=== PATIENT | female | born 1950 | race Caucasian/White ===

== ENCOUNTER 2021-04-13 11:43 | Outpatient (CLI) | payer MEDICARE, OTHER, SELFPAY ==
--- NOTE | ~2021-04-13 | MM_ITS ---
EXAMINATION: MM screening [facility] BI w ryan HISTORY: Screening TECHNIQUE: Craniocaudal and mediolateral oblique 3-D tomosynthesis images were obtained and synthetic 2-D images were generated. CAD analysis was submitted and interpreted. COMPARISON: Comparison to multiple prior studies sequentially, with oldest reviewed study dated 07/2018. BREAST PARENCHYMAL COMPOSITION: There are scattered areas of fibroglandular density. FINDINGS: There is no evidence of suspicious mass, calcification, or architectural distortion to sugg est malignancy in either breast. There has been no suspicious interval change. IMPRESSION: 1. No mammographic evidence of malignancy. 2. Recommend routine screening mammography in one year. BI-RADS Category 1: Negative Reviewed, dictated and finalized at location A.
== END 2021-04-13 11:44 | disposition home or self-care (01) ==
DX: Z12.31 Encounter for screening mammogram for malignant neoplasm of breast (principal)
CPT/HCPCS: 77063; 77067

== ENCOUNTER 2021-07-26 08:51 | Emergency (ER) | payer MEDICARE, OTHER, SELFPAY ==
--- NOTE | ~2021-07-26 | CT_ITS ---
EXAMINATION: CT hand RT w con DATE: 07/26/2021 11:18 INDICATION: Cat bite and swelling at the right hand TECHNIQUE: High resolution computed tomography (CT) of the right hand was performed with 100 mL Omnip aque-350 intravenous contrast. Additional sagittal and coronal reconstructions were performed. Automa josé exposure control and iterative reconstruction technique were employed. The dose-length product wa s 520.24 mGy-cm. COMPARISON: None FINDINGS: Bone alignment is normal. No fracture. Polyarticular osteoarthritis characterized by nonuniform joint space narrowing and small marginal osteophytes and scattered degenerative subchondral cysts with scl erotic margins. This of moderate severity at the midcarpal, triscaphe, first carpal metacarpal joints and a few predominantly distal interphalangeal joints with mild osteoarthritis of the distal radioul geovanna, wrist and first metacarpophalangeal and remaining interphalangeal joints. No periosteal reaction or acute appearing erosions/osteolysis to suggest osteomyelitis. There is enhancing synovitis surrou nding a small amount of fluid surrounding the extensor digitorum longus and extensor pollicis brevis longus tendons beginning approximately 1 cm proximal to the wrist joint line and extending distally t o proximally 4.7 cm distally over the dorsum of the hand. Tenosynovial fluid collection inclusive of the central tendons measures 2.0 x 0.9 cm in maximal orthogonal dimensions at the level of the distal carpal row. In the history of cat bite this most concerning for a septic tenosynovitis. No evident j oint effusions to suggest a septic arthritis. There is prominent more superficial subcutaneous edema consistent with cellulitis. No soft tissue gas or radiopaque foreign bodies. IMPRESSION: 1. Cellulitis at the dorsum of the hand with underlying likely septic tenosynovitis involving the thi rd and fourth dorsal compartments of the wrist. 2. Mild to moderate polyarticular osteoarthritis at the right hand and wrist. No evident osteomyeliti s or other acute osseous abnormality. Reviewed, dictated and finalized at location B. IMPRESSION: 1. Cellulitis at the dorsum of the hand with underlying likely septic tenosynov itis involving the third and fourth dorsal compartments of the wrist. 2. Mild to moderate polyarticular osteoarthritis at the right hand and wrist. N o evident osteomyelitis or other acute osseous abnormality.
[2021-07-26 08:55] VITALS: BP 138/95; PULSE 80; RESP 16; TEMP 36.9; O2SAT 96
--- NOTE | 2021-07-26 09:07 | ED.GENADULT ---
HPI - General Adult General Chief complaint: Animal Bite Stated complaint: cat bite Time Seen by Provider: 07/26/21 09:04 Source: patient Mode of arrival: ambulatory Limitations: no limitations History of Present Illness HPI narrative: Patient was bitten and scratched by a neighborhood cat on Sunday. She states that she did make an animal control report Sunday at another facility. She was seen Sunday morning in another emergency room and given Augmentin. She is taken a total of 4 doses so far. Her hand though is swelling worse, she has difficulty moving her fingers, and the pain is traveled to her forearm just below her elbow. She denies any fever, occasional chills. She is not diabetic. Related Data Home Medications Medication Instructions Recorded Confirmed amlodipine 07/26/21 amoxicillin-pot clavulanate tablet 07/26/21 07/26/21 aripiprazole mg 07/26/21 atenolol 07/26/21 lisinopril 07/26/21 omeprazole 07/26/21 pravastatin 07/26/21 quetiapine 07/26/21 venlafaxine mg PO 07/26/21 Allergies Allergy/AdvReac Type Severity Reaction Status Date / Time cephalexin Allergy Rash Verified 07/26/21 10:25 erythromycin base Allergy Rash Verified 07/26/21 10:25 CIPROFLOXACIN HCL Allergy Mild Rash Uncoded 07/26/21 10:25 Review of Systems Review of Systems: All systems reviewed & are unremarkable except as noted in HPI and below [facility] Social History Social History (Updated 07/26/21 @ 13:27 by Sirisha Navarrete PA-C) Smoking status: Never smoker Alcohol intake: current Alcohol use details: occasional Substance use: never Living arrangements: alone Occupation/Education: retired Course Course Emergency Course: CT is concerning for septic tenosynovitis in the right hand and wrist. Discussed with Dr. Mendoza who recommends that the wound be explored and that patient be transferred to a higher level of care. Patient desires to go to one of the [facility] hospitals as that is where her other physicians are. Spoke with Dr. Alicea, plastic surgery on hand call at [facility] he recommends transfer to the ED there and he will see the patient. Patient has been accepted to the ED by Dr. Tolbert. Plan discussed with the patient Vital Signs Vital signs: Vital Signs Temperature 36.9 C 07/26/21 08:55 Pulse Rate 80 07/26/21 08:55 Respiratory Rate 16 07/26/21 08:55 Blood Pressure 138/95 H 07/26/21 08:55 Pulse Oximetry 96 07/26/21 08:55 Temperature 36.9 C 07/26/21 08:55 Pulse Rate 70 07/26/21 12:59 Respiratory Rate 16 07/26/21 12:59 Blood Pressure 164/90 H 07/26/21 12:59 Pulse Oximetry 98 07/26/21 12:59 Medical Decision Making Vital Signs Vital Signs: Vital Signs Temperature 36.9 C 07/26/21 08:55 Pulse Rate 80 07/26/21 08:55 Respiratory Rate 16 07/26/21 08:55 Blood Pressure 138/95 H 07/26/21 08:55 Pulse Oximetry 96 07/26/21 08:55 Temperature 36.9 C 07/26/21 08:55 Pulse Rate 70 07/26/21 12:59 Respiratory Rate 16 07/26/21 12:59 Blood Pressure 164/90 H 07/26/21 12:59 Pulse Oximetry 98 07/26/21 12:59 Lab Data Result diagrams: 07/26/21 09:26 07/26/21 11:08 Labs: Lab Results 07/26/21 07/26/21 Range/Units 09:26 11:08 WBC 7.3 (4.5-10.0) K/mm3 RBC 4.06 L (4.2-5.4) M/mm3 Hgb 12.8 (12.0-15.0) g/dL Hct 39.1 (37.0-47.0) % MCV 96.3 (80-100) fl MCH 31.5 (26-34) pg MCHC 32.7 (32-36) g/dl RDW 11.9 (11.5-14.5) % Plt Count 174 (150-375) k/mm3 MPV 10.7 H (7.4-10.4) fl Immature Gran % (Auto) 0.4 (0-0.5) % Neut % (Auto) 82.0 H (45.5-73.1) % Lymph % (Auto) 9.5 L (18.3-44.2) % [place] % (Auto) 6.5 (2.6-8.5) % Eos % (Auto) 1.2 (0-4.4) % Baso % (Auto) 0.4 (0.2-1.2) % Lymph # (Auto) 0.69 L (0.9-3.2) K/mm3 [place] # (Auto) 0.5 (0.1-0.6) K/mm3 Eos # (Auto) 0.1 (0-0.3) K/mm3 Baso # (Auto) 0.0 (0.0-0.1) K/mm3 Abs Immat Gran (auto) 0.03 (0.
[2021-07-26 09:40] LABS: Basophils Percent Auto 0.4 % (0.2-1.2); Eosinophils Absolute Auto 0.1 K/mm3 (0-0.3); Eosinophils Percent Auto 1.2 % (0-4.4); Hematocrit 39.1 % (37.0-47.0); Hemoglobin 12.8 g/dL (12.0-15.0); Immature Granulocyte Absolute 0.03 K/mm3 (0.00-0.031); Immature Granulocyte Percent A 0.4 % (0-0.5); Lymphocytes Absolute Auto 0.69 K/mm3 (0.9-3.2); Lymphocytes Percent Auto 9.5 % (18.3-44.2); Mean Corpuscular HGB Conc 32.7 g/dl (32-36); Mean Corpuscular Hemoglobin 31.5 pg (26-34); Mean Corpuscular Volume 96.3 fl (80-100); Mean Platelet Volume 10.7 fl (7.4-10.4); Monocytes Absolute Auto 0.5 K/mm3 (0.1-0.6); Monocytes Percent Auto 6.5 % (2.6-8.5); Neutrophils Absolute Auto 5.9 K/mm3 (1.3-6.7); Platelet Count Result 174 k/mm3 (150-375); Red Blood Count 4.06 M/mm3 (4.2-5.4); Red Cell Distribution Width 11.9 % (11.5-14.5); White Blood Count 7.3 K/mm3 (4.5-10.0)
[2021-07-26] MEDS: KETOROLAC 30 MG/ML VIAL (*BKC) IV PUSH (10:29)
[2021-07-26 11:00] VITALS: BP 160/88; PULSE 72; RESP 16; O2SAT 99
[2021-07-26 11:10] LABS: Estimated CRCL calculation 84 ml/min; Estimated Glomerular Filt Rate > 60
[2021-07-26 12:59] VITALS: BP 164/90; PULSE 70; RESP 16; O2SAT 98
[2021-07-26 14:15] VITALS: BP 140/80; PULSE 70; RESP 16; O2SAT 98
--- NOTE | 2021-07-26 14:25 | PC.NURSE ---
sherif ems accepted transfer to [facility] [address] Trip#[id number]
[2021-07-26 17:15] VITALS: BP 152/64; PULSE 80; RESP 16; O2SAT 98
== END 2021-07-26 17:15 | disposition short-term general hospital (02) ==
PROVIDERS: Physician Assistant; Emergency Provider Emergency Medicine
DX: S61.451A Open bite of right hand, initial encounter (principal); L02.511 Cutaneous abscess of right hand; M65.9 Synovitis and tenosynovitis, unspecified; W55.01XA Bitten by cat, initial encounter
CPT/HCPCS: 36415; 73201; 85025; 87040; 96365; 96375; 99285; J1885; J3370; Q9967

== ENCOUNTER 2023-03-05 08:39 | Inpatient (IN) | payer MEDICARE, OTHER, SELFPAY ==
[2023-03-05] VITALS (28 sets, daily range): BP systolic 120–160; BP diastolic 69–86; PULSE 59–70; RESP 12–26; TEMP 35.9; O2SAT 92–95; BMI 34.0
--- NOTE | ~2023-03-05 | MR_ITS ---
MRI of the lumbar spine Clinical History: L2 burst fracture Technique: Axial T2-weighted images, and sagittal T1-weighted, T2-weighted, and T2 fat-sat images wer e acquired. Findings: L2 compression fractures present with moderate loss of height, hypointense fracture line, a nd mild to moderate marrow edema. No other fracture identified. No subluxation evident. No other bone marrow signal abnormality seen. At L1-L2, there is mild facet arthropathy. No disc bulge or herniation. No spinal canal stenosis or n eural foraminal narrowing. At L2-L3, there is no significant disc bulge or herniation. There is mild facet arthropathy. No spina l canal stenosis or neural foraminal narrowing. At L3-L4, there is minimal disc bulge with mild facet arthropathy. No spinal canal stenosis or neural foraminal narrowing. At L4-L5, there is disc bulge and facet arthropathy. No humble spinal canal stenosis. No neural forami nal narrowing. At L5-S1, there is disc bulge and facet arthropathy. No spinal canal stenosis or definite neural fora annie narrowing. Paravertebral soft tissues are unremarkable. Impression: Acute to subacute L2 compression fracture with moderate loss of height. Minimal degenerative spondylosis, as above. Reviewed, dictated and finalized at location . Impression: Acute to subacute L2 compression fracture with moderate loss of height. Minimal degenerative spondylosis, as above.
--- NOTE | ~2023-03-05 | CT_ITS ---
EXAMINATION: CT abdomen pelvis w con DATE: 03/05/2023 10:34 INDICATION: Severe diarrhea, dehydration and low back pain TECHNIQUE: Computed tomography (CT) of the abdomen and pelvis was performed with 100 cc Omnipaque 350 intravenous contrast. The dose-length product was 1374.73 mGy-cm. Automated exposure control and ite rative reconstruction technique were employed. COMPARISON: CT dated 12/01/2017. FINDINGS: There is right lower lobe atelectasis. Heart size normal. No significant pleural or pericar dial effusion. Mild atherosclerosis without aneurysm. No lymphadenopathy. There is a 3.4 cm right adnexal cyst, like ly ovarian. There is a burst fracture of L2, possibly acute or subacute. Fatty infiltration of the liver. There are gallstones. The spleen, pancreas, adrenal glands and left kidney are unremarkable. Nonobstructive bowel gas pattern. Normal appendix. No abnormal free fluid or free air. Bladder is decompressed. The spleen, pancreas, adrenal glands and kidneys are unremarkable . IMPRESSION: 1. Cholelithiasis. 2: L2 burst fracture which is new compared with prior CT, possibly acute or subacute. 3: Right adnexal cyst measuring 3.4 cm, likely ovarian. Reviewed, dictated and finalized at location B. IMPRESSION: 1. Cholelithiasis. 2: L2 burst fracture which is new compared with prior CT, possibly acute or sub acute. 3: Right adnexal cyst measuring 3.4 cm, likely ovarian.
--- NOTE | ~2023-03-05 | XR_ITS ---
AP view of the pelvis Clinical history: Pain Findings: No acute fracture or dislocation is seen. Osseous alignment is anatomic. Bilateral hip and SI joint spaces are preserved. Soft tissues are unremarkable. Impression: No significant abnormality is seen. Reviewed, dictated and finalized at location M. Impression: No significant abnormality is seen.
--- NOTE | 2023-03-05 08:48 | ECG_ITS ---
Measurements Intervals [place] Rate: 63 P: 30 [place]: 237 QRS: -35 QRSD: 90 T: 23 QT: 399 QTc: 409 Interpretive Statements SINUS RHYTHM WITH FIRST DEGREE AV BLOCK BASELINE ARTIFACT LEFT AXIS DEVIATION PATTERN CONSISTENT WITH PULMONARY DISEASE POSSIBLE RIGHT VENTRICULAR CONDUCTION DELAY NONSPECIFIC ST ABNORMALITY ABNORMAL ECG NO PREVIOUS ECG AVAILABLE FOR COMPARISON Electronically Signed On 03-05-2023 16:58:32 CDT by Raffy Hawkins M.D.
[2023-03-05 09:09] LABS: Basophils Percent Auto 0.7 % (0.2-1.2); Eosinophils Absolute Auto 0.2 K/mm3 (0-0.3); Eosinophils Percent Auto 3.1 % (0-4.4); Hematocrit 38.5 % (37.0-47.0); Immature Granulocyte Absolute 0.01 K/mm3 (0.00-0.031); Immature Granulocyte Percent A 0.2 % (0-0.5); Lymphocytes Percent Auto 11.4 % (18.3-44.2); Mean Corpuscular HGB Conc 33.8 g/dl (32-36); Mean Corpuscular Hemoglobin 33.1 pg (26-34); Mean Platelet Volume 9.7 fl (7.4-10.4); Monocytes Absolute Auto 0.5 K/mm3 (0.1-0.6); Monocytes Percent Auto 7.5 % (2.6-8.5); Neutrophils Absolute Auto 4.8 K/mm3 (1.3-6.7); Neutrophils Percent Auto 77.1 % (45.5-73.1); Platelet Count Result 190 k/mm3 (150-375); Red Blood Count 3.93 M/mm3 (4.2-5.4); Red Cell Distribution Width 12.8 % (11.5-14.5); White Blood Count 6.2 K/mm3 (4.5-10.0)
--- NOTE | 2023-03-05 09:17 | ED.NAVMDI ---
HPI - Nausea/Vomiting/Diarrhea General Chief complaint: Nausea/Vomiting/Diarrhea <Lucila Arita PA-C - Last Filed: 03/05/23 13:08> Stated complaint: Fall <Lucila Arita PA-C - Last Filed: 03/05/23 13:08> Time Seen by Provider: 03/05/23 08:54 <Lucila Arita PA-C - Last Filed: 03/05/23 13:08> History of Present Illness HPI Narrative: Patient is a 73-year-old female here due to weakness and pain in her low back. Patient states her pain started after she fell 3 days ago. Patient states that she was walking to the bathroom, and had explosive diarrhea , which she believes caused her to pass out on the toilet. She woke up on the floor and noticed that her low back was hurting. States that she spent most of the day on the floor but was able to pull herself up into bed eventually. She spent all of the past 2 days in bed due to weakness and pain in her low back. She called her grandson today who drove her to the ED. She has been taking NSAIDs for pain without much relief. States the pain remains in her lower sacrum and does not radiate. The pain improves at rest and worsens with movement. She denies any numbness or tingling in the groin, weakness in the limbs, further episodes of diarrhea, incontinence or retention of bladder. No chest pain, shortness of breath, headache, visual changes, fevers or chills. <Lucila Arita PA-C - Last Filed: 03/05/23 13:08> Related Data Home medications: Home Medications Medication Instructions Recorded Confirmed amlodipine 5 mg tablet 07/26/21 amoxicillin 875 mg-potassium tablet 07/26/21 07/26/21 clavulanate 125 mg tablet aripiprazole 15 mg tablet mg 07/26/21 atenolol 50 mg tablet 07/26/21 lisinopril 20 mg tablet 07/26/21 omeprazole 40 mg capsule,delayed 07/26/21 release pravastatin 80 mg tablet 07/26/21 quetiapine 50 mg tablet 07/26/21 venlafaxine 75 mg capsule,extended mg PO 07/26/21 release 24 hr <CRISTA Parekh Last Filed: 03/05/23 13:08> Allergies/Adverse reactions: Allergies Allergy/AdvReac Type Severity Reaction Status Date / Time ciprofloxacin [From Cipro] Allergy Mild Rash Verified 03/05/23 09:24 cephalexin Allergy Rash Verified 03/05/23 08:57 erythromycin base Allergy Rash Verified 03/05/23 08:57 <CRISTA Parekh Last Filed: 03/05/23 13:08> Review of Systems Review of Systems: Gen.: Denies fevers or chills Eyes: Denies eye pain or visual change ENT: Denies congestion Respiratory: Denies shortness of breath or cough CV: Denies chest pain or palpitations GI: Denies abdominal pain nausea, emesis or diarrhea denies burning, urgency, frequency or hematuria Musculoskeletal: Reports back pain Neuro: Denies numbness, tingling, weakness or focal weakness Skin: Denies rash Except as documented, all other systems reviewed and negative <CRISTA Parekh Last Filed: 03/05/23 13:08> [facility] Social History Social History: Social History Smoking status: Never smoker Alcohol intake: current Alcohol use details: occasional Substance use: never Living arrangements: alone Occupation/Education: retired <CRISTA Parekh Last Filed: 03/05/23 13:08> Exam Narrative: APPEARANCE: Well appearing, no pain in distress, well-nourished. Head: Normocephalic and atraumatic. EYES: Subconjunctival hemorrhage on the right, left eyes clear NOSE: No nasal drainage EARS: External ear normal in appearance THROAT: Mucous membranes are dry. Oropharynx is clear. NECK: No tenderness to palpation along C-spine. Supple. No adenopathy, no masses. RESPIRATORY: Airway patent, respirations nonlabored. Clear to auscultation bilaterally, no rales, rhonchi, wheezing. CARDIOVASCULAR: Regular rate and rhythm without murmurs, rubs, or gallops. ABDOMINAL: Normoactive bowel sounds. Soft, nontender, nond
[2023-03-05 09:20] LABS: Alanine Aminotransferase 33 U/L (6-35); Alkaline Phosphatase 88 U/L (38-126); Anion Gap 4 mmol/L (8-16); Aspartate Amino Transferase 30 U/L (14-36); Bilirubin,Total 0.7 mg/dL (0.2-1.3); Blood Urea Nitrogen 26 mg/dL (7-17); Carbon Dioxide 28 mmol/L (22-30); Chloride 100 mmol/L (98-107); Estimated Glomerular Filt Rate 32; Glucose 152 mg/dL (65-110); Lipase 147 U/L (23-300); Potassium 4.5 mmol/L (3.4-5.0); Sodium 132 mmol/L (137-145)
[2023-03-05] MEDS: HYDROcodone/acetaminophen (*CRX) 5-325 MG TABLET 1 TAB PO ×3 (09:32→22:14)
[2023-03-05] MEDS: FAMOTIDINE 20 MG/2 ML VIAL IV PUSH (09:32)
[2023-03-05] MEDS: ONDANSETRON INJ 4 MG/2 ML VIAL IV PUSH (09:32)
[2023-03-05] MEDS: SODIUM CHLORIDE 0.9% IV 1,000 ML 999 ML IV CONT ×2 (09:33→12:38)
[2023-03-05 09:56] LABS: Magnesium 2.2 mg/dL (1.6-2.3)
[2023-03-05 10:24] LABS: SARS-CoV-2 RNA PCR Negative
[2023-03-05 12:20] LABS: Creatine Kinase 27 U/L (30-135)
[2023-03-05] MEDS: LIDOCAINE 5% PATCH 1 PATCH TRANSDERM (12:38)
--- NOTE | 2023-03-05 12:39 | WPDNEUROSGCN ---
Assessment and Plan Assessment and plan (1) Burst fracture of lumbar vertebra: Code(s): S32.001A - Stable burst fracture of unspecified lumbar vertebra, initial encounter for closed fracture Status: Acute Plan Sirisha is a 73-year-old female with back pain related to an L2 compression deformity and slightly retropulsed fragment between the pedicles. This is a stable fracture and can be treated with bracing and oral analgesics to get her mobilized. She should wear the brace for pain control when she is up and moving but does not have to wear at all times. She may enjoy a out of bed activity with physical therapy. When she is making transfers and ambulating independently she may be discharged home to follow up in 6 weeks with a new CT scan of the lumbar spine. I have already recommended MR imaging to better characterize the fracture and its relationship to the surrounding structures. Review of Systems Review of Systems: Patient denies shortness of breath, cough, fever, chills, nausea, vomiting, weight loss, weight gain, chest pain, dysuria. She has back pain as above. Review systems is otherwise negative except for diarrhea and GI symptoms as above on 12 systems. [facility] Social History Social History Smoking status: Never smoker Alcohol intake: current Alcohol use details: occasional Substance use: never Living arrangements: alone Occupation/Education: retired Meds Home Medications and Allergies Home Medications Medication Instructions Recorded Confirmed Type amlodipine 5 mg tablet 07/26/21 History amoxicillin 875 mg-potassium tablet 07/26/21 07/26/21 History clavulanate 125 mg tablet aripiprazole 15 mg tablet mg 07/26/21 History atenolol 50 mg tablet 07/26/21 History lisinopril 20 mg tablet 07/26/21 History omeprazole 40 mg capsule,delayed 07/26/21 History release pravastatin 80 mg tablet 07/26/21 History quetiapine 50 mg tablet 07/26/21 History venlafaxine 75 mg capsule,extended mg PO 07/26/21 History release 24 hr Allergies Allergy/AdvReac Type Severity Reaction Status Date / Time ciprofloxacin [From Cipro] Allergy Mild Rash Verified 03/05/23 09:24 cephalexin Allergy Rash Verified 03/05/23 08:57 erythromycin base Allergy Rash Verified 03/05/23 08:57 Vital Signs Vital Signs - 24 hr 03/05/23 08:52 Pulse Rate 66 Respiratory Rate 18 Blood Pressure 140/86 Pulse Oximetry 95 Oxygen Delivery Room Air Exam Narrative: Patient is a normally developed, normal appearing female supine on the hospital bed in no acute distress. She is awake, alert, oriented, with good fund of knowledge, recall events and fluent speech. Her face is symmetrical, tongue is midline, pupils are equal react to light, extraocular movements are intact without diplopia or nystagmus. Her palate elevates symmetrically, she has good sensation on both sides of the face, her shoulder shrug is strong, her hearing is grossly intact. Her breathing is nonlabored. She speaks in complete sentences without difficulty. Regular rate and rhythm Her skin is normal color and turgor. She has no upper extremity drift, dysmetria or dyspraxia. Strength is 5/5 in all muscle groups of the bilateral lower extremities. Sensation is intact to light touch throughout the lower extremities. Deep tendon reflexes are normal and symmetric at the knees and difficult to elicit the ankles bilaterally. Leno's test is negative bilaterally. Examination of back reveals positional pain and tenderness of the paraspinous musculature in the thoracolumbar spine. Gait, Station and transfers could not be tested secondary to the patient's inability to cooperate with that examination. Review of studies: CT scan of the abdomen and pelvis were personally reviewed by me which demonstrate a superior endplate compression deformity at L2 wi
[2023-03-05 13:02] LABS: Appearance Urine Clear (Clear); Bilirubin Urine Negative (Negative); Blood Urine Negative (Negative); Color Urine Yellow (Yellow); Glucose Urine UA Negative (Negative); Ketones Urine Negative (Negative); Leukocyte Esterase Ur Negative LEU/UL (Negative); Nitrate Urine Negative (Negative); Protein Urine Negative (Negative); Urobilinogen Urine 0.2 mg/dL (<2.0); pH Urine 5.5 (5.0-9.0)
[2023-03-05 13:19] LABS: Specific Grav Ur 1.056 (1.001-1.035)
[2023-03-05 13:20] LABS: Add Urine Microscopic? NO
--- NOTE | 2023-03-05 15:00 | PM.IMHP ---
H&P: HPI History of Present Illness Date/Time: 03/05/23 15:00 Chief Complaint: Nausea vomiting diarrhea Narrative: This is a 73-year-old female patient who has been in bed over the last couple days. The patient stated that she fell approximately 3 days ago. She was walking to the bathroom and had explosive diarrhea. She believes that this caused her to pass out on the toilet. She woke up on the floor and noticed that her leg she had some low back pain. The patient thought that maybe this was just muscle skeletal discomfort. The patient has been most of the day on the floor but was able to pull herself up in the bed he mentally. She spent 2 days in bed due to weakness in lower back pain. She called her grandson today need over to the emergency room. The patient has been taking NSAIDs without much relief of her lower back pain. Her pain is somewhat improved with rest and is worse with movement. She had no numbness or tingling or any further episodes of diarrhea. No retention of bowel or bladder. No incontinence of bowel or bladder either. The patient is able to move all extremities. No fever chills. Her white count is normal. Neutrophils 77.1. Sodium is 132. Creatinine is 1.6 with a previous normal baseline. She is negative for COVID. Abdominal pelvis CT was read as a following . 1. Cholelithiasis. 2: L2 burst fracture which is new compared with prior CT, possibly acute or subacute. 3: Right adnexal cyst measuring 3.4 cm, likely ovarian. Pelvis x-ray was read as no significant abnormality. Neurosurgery has been consulted. The patient was given IV fluids, Zofran, Pepcid, [place], IV fluids and lidocaine patch. The patient is being admitted to observation status on the date of service of 03/05/2023. Review of Systems Review of Systems: All systems reviewed & are unremarkable except as noted in HPI and below Constitutional: Constitutional: Reports as per HPI and Reports no additional constitutional complaints Eyes: Eyes: Reports as per HPI and Reports no additional eye complaints ENT: Reports system reviewed and no additional complaints, except as documented and Reports Normal hearing present Cardiovascular: Cardiovascular: Reports no additional cardiovascular complaints Respiratory: Respiratory: Reports no additional respiratory complaints and Reports no additional respiratory complaints Gastrointestinal: Gastrointestinal: Reports as per HPI and Reports no additional gastrointestinal complaints Musculoskeletal: Musculoskeletal: Reports no additional musculoskeletal complaints Integumentary/Breasts: Skin/Breast: Reports system reviewed and no additional complaints, except as docu and Reports as per HPI Neurologic: Reports system reviewed and no additional complaints, except as documented, Reports as per HPI and Reports Normal hearing present Psychiatric: Psychiatric: Reports no additional psychiatric complaints and Reports as per HPI Endocrine: Endocrine: Reports no additional endocrine complaints Hematologic/Lymphatic: Hematologic/Lymphatic: Reports no additional hematologic/lymphatic complaints Allergic/Immunologic: Allergic/Immunologic: Reports no additional allergic/immunologic complaints [facility] Past Medical History Medical History (Updated 03/05/23 @ 18:57 by Elena Barrera NP) Depression with anxiety History of endometrial biopsy Hyperlipidemia Hypertension Surgical History Surgical History (Updated 03/05/23 @ 18:57 by Elena Barrera NP) H/O abdominoplasty H/O eye surgery H/O hand surgery H/O: hysterectomy History of endometrial ablation Hx of breast reduction, elective S/P tonsillectomy Family History Family History Mother Breast cancer Father Parkinson disease Social History Social History (Updated 03/05/23 @ 18:58 by Elena Barrera NP) Social History: She is and lives alone. She had 2 children. 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
[2023-03-05] MEDS: SODIUM CHLORIDE 0.9% IV 1,000 ML 100 ML IV CONT (20:23)
[2023-03-05] MEDS: QUEtiapine FUMARATE 25 MG TABLET 75 MG PO (22:13)
[2023-03-05] MEDS: PANTOPRAZOLE 40 MG TABLET PO (22:13)
[2023-03-05] MEDS: PRAVASTATIN SODIUM 20 MG TABLET 80 MG PO (22:14)
[2023-03-05] MEDS: atenoloL 50 MG TABLET PO (22:14)
[2023-03-05] MEDS: amLODIPine BESYLATE 5 MG TABLET PO (22:14)
[2023-03-05] MEDS: LORazepam (*CRX) 0.5 MG TABLET PO (22:14)
[2023-03-06] VITALS (7 sets, daily range): BP systolic 116–144; BP diastolic 58–73; PULSE 65–70; RESP 16–30; TEMP 35.5–36.4; O2SAT 91–100
[2023-03-06] MEDS: SODIUM CHLORIDE 0.9% IV 1,000 ML 100 ML IV CONT ×2 (06:02→16:58)
[2023-03-06 06:49] LABS: Basophils Percent Auto 0.7 % (0.2-1.2); Eosinophils Absolute Auto 0.1 K/mm3 (0-0.3); Eosinophils Percent Auto 2.9 % (0-4.4); Hematocrit 33.5 % (37.0-47.0); Immature Granulocyte Absolute 0.01 K/mm3 (0.00-0.031); Immature Granulocyte Percent A 0.2 % (0-0.5); Lymphocytes Absolute Auto 0.92 K/mm3 (0.9-3.2); Lymphocytes Percent Auto 20.4 % (18.3-44.2); Mean Corpuscular HGB Conc 32.8 g/dl (32-36); Mean Corpuscular Hemoglobin 33.3 pg (26-34); Mean Corpuscular Volume 101.5 fl (80-100); Mean Platelet Volume 9.4 fl (7.4-10.4); Monocytes Absolute Auto 0.5 K/mm3 (0.1-0.6); Neutrophils Percent Auto 65.8 % (45.5-73.1); Platelet Count Result 155 k/mm3 (150-375); Red Cell Distribution Width 13.2 % (11.5-14.5); White Blood Count 4.5 K/mm3 (4.5-10.0)
[2023-03-06 07:02] LABS: Alanine Aminotransferase 27 U/L (6-35); Albumin Level 3.5 g/dL (3.5-5.1); Alkaline Phosphatase 70 U/L (38-126); Anion Gap 2 mmol/L (8-16); Aspartate Amino Transferase 27 U/L (14-36); Bilirubin,Total 0.5 mg/dL (0.2-1.3); Blood Urea Nitrogen 16 mg/dL (7-17); Calcium 8.5 mg/dL (8.4-10.2); Carbon Dioxide 30 mmol/L (22-30); Chloride 105 mmol/L (98-107); Estimated CRCL calculation 48 ml/min; Estimated Glomerular Filt Rate 49; Glucose 100 mg/dL (65-110); Lactic Acid Reflex 0.6 mmol/L (0.7-2.0); Magnesium 2.1 mg/dL (1.6-2.3); Potassium 4.7 mmol/L (3.4-5.0); Sodium 137 mmol/L (137-145)
[2023-03-06] MEDS: VENLAFAXINE HCL 37.5 MG TABLET PO (08:22)
[2023-03-06] MEDS: VENLAFAXINE HCL 75 MG TABLET PO (08:23)
[2023-03-06] MEDS: PANTOPRAZOLE 40 MG TABLET PO ×2 (08:23→16:19)
[2023-03-06] MEDS: LIDOCAINE 5% PATCH 1 PATCH TRANSDERM (08:24)
[2023-03-06] MEDS: HYDROcodone/acetaminophen (*CRX) 5-325 MG TABLET 1 TAB PO ×3 (08:24→21:18)
--- NOTE | 2023-03-06 10:58 | PM.IMPN ---
Progress Note: A&P Assessment and Plan (1) Burst fracture of lumbar vertebra: Code(s): S32.001A - Stable burst fracture of unspecified lumbar vertebra, initial encounter for closed fracture Status: Acute Assessment and Plan: Neuro surgery input appreciated Continue with pain control PT and OT evaluation to greatly be appreciated. Patient will need a back brace. Care coordination has been consulted for for evaluation Discharge plan based on PTOT evaluation. (2) Acute kidney injury: Code(s): N17.9 - Acute kidney failure, unspecified Status: Acute Assessment and Plan: The patient has been in bed and has poor oral intake. Continue with IV fluids and recheck labs in the a.m.. (3) Hypertension: Code(s): I10 - Essential (primary) hypertension Status: Acute Assessment and Plan: Hold lisinopril due to acute kidney failure Continue with atenolol and Norvasc (4) Hyperlipidemia: Code(s): E78.5 - Hyperlipidemia, unspecified Status: Acute Assessment and Plan: Continue with provide (5) Depression with anxiety: Code(s): F41.8 - Other specified anxiety disorders Status: Acute Assessment and Plan: Continue with Effexor and Seroquel Subjective Date/time seen: 03/06/23 10:58 Patient is currently unable to get out of bed and walk. Has brace at bedside. Appreciate neurosurgical input. Exam Const: General: cooperative, healthy appearing, comfortable, no acute distress, well developed, awake, Physically active, average body habitus and well nourished Nutritional Appearance: average body habitus and well nourished Orientation/consciousness: oriented to person, oriented to place, oriented to time and patient oriented x3 Limitations: no limitations HENMT: Head: normal to inspection, No palpable skull fracture present, normocephalic and atraumatic Ears: hearing grossly normal bilaterally and external ears normal Face/Nose/Sinus: Normal external nose present and Normal nares present Eyes: General: appearance normal, both eyes and all related structures Alignment and Position: alignment normal Periorbital: periorbital findings normal Eyelids: eyelids normal Sclera: sclerae normal Pupils: Equal, round and reactive pupils present EOM: EOMs intact bilaterally Neck: Neck: normal visual inspection, full ROM, no lymphadenopathy, trachea midline and supple Chest: Chest palpation & inspection: normal inspection of the chest Resp: Effort & Inspection: normal respiratory effort Auscultation: clear to auscultation bilaterally Cardio: Palpation: normal PMI Rate: regular rate Rhythm: regular rhythm Heart sounds: S1 normal heart sound present and S2 normal heart sound present Peripheral pulses: Peripheral pulses 2+ throughout GI: Inspection: normal to inspection Auscultation: normal bowel sounds Rectal Exam: deferred Back/Spine/Pelvis: Cervical Spine: cervical ROM normal Skin: General skin exam: normal color Lesions: no lesions Rashes: no rashes Trauma: no lacerations or abrasions Wounds: no wounds Hair: normal Nails: normal Neuro: General: oriented to person, oriented to place, oriented to time and patient oriented x3 Cranial nerves: Yes Equal, round and reactive pupils present and Yes Normal hearing present Cognition (Neuro): normal cognition Speech: normal speech Motor exam (neuro): 5/5 motor strength present throughout Sensory Exam: normal sensation Extrem: General: normal to inspection Right upper extremity: normal to inspection and shoulder/upper arm Left upper extremity: normal to inspection and shoulder/upper arm Right lower extremity: normal to inspection Left lower extremity: normal to inspection Psych: Appearance: grossly normal Mental Status: mental status grossly normal Speech and movement: Normal speech and movement present Affect: normal affect Attitude: cooperative Thought process: Normal thought process present I
[2023-03-06] MEDS: ONDANSETRON INJ 4 MG/2 ML VIAL IV PUSH (21:18)
[2023-03-06] MEDS: amLODIPine BESYLATE 5 MG TABLET PO (21:19)
[2023-03-06] MEDS: QUEtiapine FUMARATE 25 MG TABLET 75 MG PO (21:19)
[2023-03-06] MEDS: atenoloL 50 MG TABLET PO (21:19)
[2023-03-06] MEDS: PRAVASTATIN SODIUM 20 MG TABLET 80 MG PO (21:20)
[2023-03-06 22:40] LABS: Glucose Point of Care 155 mg/dl (65-105)
[2023-03-07] MEDS: SODIUM CHLORIDE 0.9% IV 1,000 ML 100 ML IV CONT (04:05)
[2023-03-07 06:00] VITALS: BP 146/79; PULSE 65; RESP 16; TEMP 36.3; O2SAT 93
[2023-03-07] MEDS: PANTOPRAZOLE 40 MG TABLET PO (08:19)
[2023-03-07] MEDS: VENLAFAXINE HCL 75 MG TABLET PO (08:19)
[2023-03-07] MEDS: VENLAFAXINE HCL 37.5 MG TABLET PO (08:19)
[2023-03-07] MEDS: HYDROcodone/acetaminophen (*CRX) 5-325 MG TABLET 1 TAB PO (08:19)
[2023-03-07] MEDS: LIDOCAINE 5% PATCH 1 PATCH TRANSDERM (08:20)
--- NOTE | 2023-03-07 13:05 | PM.DS ---
DS: Admitting Diagnosis Discharge Date 03/07/2023 Admitting Diagnosis Nausea vomiting diarrhea DS: Discharge Diagnosis Discharge Diagnosis Plan 1) Burst fracture of lumbar vertebra: ?Code(s): S32.001A - Stable burst fracture of unspecified lumbar vertebra, initial encounter for closed fracture ?Status:?Acute ?Assessment and Plan: Neuro surgery input appreciated Continue with pain control PT and OT evaluation to greatly be appreciated. Patient will need a back brace. Care coordination has been consulted for for evaluation Discharge plan based on PTOT evaluation. follow up up with neurosurgery office ? (2) Acute kidney injury: ?Code(s): N17.9 - Acute kidney failure, unspecified ?Status:?Acute ?Assessment and Plan: The patient has been in bed and has poor oral intake.? Continue with IV fluids and recheck labs in the a.m.. (3) Hypertension: ?Code(s): I10 - Essential (primary) hypertension ?Status:?Acute ?Assessment and Plan: Hold lisinopril due to acute kidney failure Continue with atenolol and Norvasc (4) Hyperlipidemia: ?Code(s): E78.5 - Hyperlipidemia, unspecified ?Status:?Acute ?Assessment and Plan: Continue with provide (5) Depression with anxiety: ?Code(s): F41.8 - Other specified anxiety disorders ?Status:?Acute ?Assessment and Plan: Continue with Effexor and Seroquel DS: Summary Hospital Course Hospital Course: 73-year-old female patient who has been in bed over the last couple days.? The patient stated that she fell approximately 3 days ago.? She was walking to the bathroom and had explosive diarrhea.? She believes that this caused her to pass out on the toilet.? She woke up on the floor and noticed that her leg she had some low back pain.? The patient thought that maybe this was just muscle skeletal discomfort.? The patient has been most of the day on the floor but was able to pull herself up in the bed he mentally.? She spent 2 days in bed due to weakness in lower back pain.? She called her grandson today need over to the emergency room.? The patient has been taking NSAIDs without much relief of her lower back pain.? Her pain is somewhat improved with rest and is worse with movement.? Time Spent with Patient Time attestation: Total time spent providing and/or coordinating discharge services:40 minutes on day of discharge Exam Const: General: cooperative, healthy appearing, comfortable, no acute distress, well developed, awake, Physically active, average body habitus and well nourished Nutritional Appearance: average body habitus and well nourished Orientation/consciousness: oriented to person, oriented to place, oriented to time and patient oriented x3 Limitations: no limitations HENMT: Head: normal to inspection, No palpable skull fracture present, normocephalic and atraumatic Ears: hearing grossly normal bilaterally and external ears normal Face/Nose/Sinus: Normal external nose present and Normal nares present Eyes: General: appearance normal, both eyes and all related structures Alignment and Position: alignment normal Periorbital: periorbital findings normal Eyelids: eyelids normal Sclera: sclerae normal Pupils: Equal, round and reactive pupils present EOM: EOMs intact bilaterally Neck: Neck: normal visual inspection, full ROM, no lymphadenopathy, trachea midline and supple Chest: Chest palpation & inspection: normal inspection of the chest Resp: Effort & Inspection: normal respiratory effort Auscultation: clear to auscultation bilaterally Cardio: Palpation: normal PMI Rate: regular rate Rhythm: regular rhythm Heart sounds: S1 normal heart sound present and S2 normal heart sound present Peripheral pulses: Peripheral pulses 2+ throughout GI: Inspection: normal to inspection Auscultation: normal bowel sounds Rectal Exam: deferred Back/Spine/Pelvis: Cervical Spine: cervical ROM normal Skin: General skin exam: normal
== END 2023-03-07 14:15 | disposition home or self-care (01) | DRG 552 ==
LOC: ANHED 11:37 → ANH3MEDSUR 14:39
PROVIDERS: Emergency Medicine; Nurse Practitioner; Admitting Provider Family Medicine; Emergency Provider Physician Assistant; Visit Provider Family Medicine
DX: S32.021A Stable burst fracture of second lumbar vertebra, initial encounter for closed fracture (principal); N17.9 Acute kidney failure, unspecified; E78.5 Hyperlipidemia, unspecified; F41.8 Other specified anxiety disorders; I10 Essential (primary) hypertension; Z20.822 Contact with and (suspected) exposure to COVID-19; Z90.710 Acquired absence of both cervix and uterus; W18.11XA Fall from or off toilet without subsequent striking against object, initial encounter
CPT/HCPCS: 36415; 72148; 72190; 74177; 80053; 81003; 82550; 82948; 83605; 83690; 83735; 84443; 85025; 93005; 96361; 96374; 96375; 97161; 97165; 97535; 99285; A9270; G0378; J2405; J7030; Q9967; U0003; U0005

== ENCOUNTER 2024-10-09 10:09 | Emergency (ER) | payer MEDICARE, OTHER, SELFPAY ==
--- NOTE | ~2024-10-09 | CT_ITS ---
EXAMINATION: CT lumbar spine wo con DATE: 10/09/2024 12:12 INDICATION: Low back injury. Fall. TECHNIQUE: Computed tomography (CT) of the lumbar spine was performed without intravenous contrast. A utomated exposure control and iterative reconstruction technique were employed. The dose-length produ ct was 1177.53 mGy-cm. COMPARISON: Lumbar spine CT 04/30/2023 FINDINGS: There is 9 degrees levocurvature of lumbar spine. There is a burst fracture of L1 with 1/5 loss of height and retropulsion of bone 2 mm into central spinal canal. There is a chronic burst frac ture of L2 with 3/5 loss of height and retropulsion of bone 5 mm into central spinal canal. There is moderately decreased disc height at L3-L4 and L4-L5 and mildly decreased disc height at L5-S1. The fo llowing disc levels are specifically discussed: L1-L2: The disc is bulging. There is severe bilateral facet joint osteoarthritis. There is mild bilat eral neural foraminal stenosis. There is mild central canal stenosis. L2-L3: The disc is bulging. There is mild bilateral facet joint osteoarthritis. There is mild bilater al neural foraminal stenosis. There is mild central canal stenosis. L3-L4: The disc is bulging. There is moderate right and mild left facet joint osteoarthritis. There i s mild bilateral neural foraminal stenosis. There is mild central canal stenosis. L4-L5: The disc is bulging. There is severe bilateral facet joint osteoarthritis. There is mild bilat eral neural foraminal stenosis. There is mild central canal stenosis. L5-S1: The disc is bulging. There is severe bilateral facet joint osteoarthritis. There is mild bilat eral neural foraminal stenosis. There is mild central canal stenosis. IMPRESSION: 1. Acute versus subacute L1 burst fracture. 2. Moderate lumbar spondylosis. Reviewed, dictated and finalized at location A. ER UP
[2024-10-09 10:30] VITALS: BP 116/85; PULSE 69; RESP 18; TEMP 36.1; O2SAT 100
[2024-10-09 11:09] VITALS: BP 148/80; PULSE 66; RESP 16; TEMP 37; O2SAT 95
[2024-10-09 11:16] VITALS: BP 141/72; PULSE 65; RESP 16; TEMP 37; O2SAT 94
[2024-10-09 12:23] VITALS: BP 162/78; PULSE 65; RESP 18; O2SAT 94
--- NOTE | 2024-10-09 12:42 | ED_ITS ---
HPI - Fall General Chief Complaint: Fall Stated Complaint: fell on 10/03, c/o back pain Time Seen by Provider: 10/09/24 12:28 Source: patient Mode of arrival: ambulatory Limitations: no limitations History of Present Illness HPI Narrative: Patient presents with complaint of low back pain. She Slipped on water and fell on 10/03/2024 and has had pain ever since. she notes that the pain is worsening. She has a history of an L2 burst fracture 1/2 years ago. she denies any paresthesias including no saddle anesthesia. No bowel or bladder incontinence. Because of the pain she has had to start ambulating with a cane although she did not previously at baseline. Her primary care physician used to be Kimberlyn donnelly however they left the practice and now she sees their nurse-practitioner through [facility]. at home she has been trying NSAIDs, 1st ibuprofen but also Celebrex and aspirin. has not taken any Tylenol. Related Data Home Medications Medication Instructions Recorded Confirmed atenolol 50 mg tablet 50 mg PO DAILY 07/26/21 03/05/23 lisinopril 20 mg tablet 20 mg PO DAILY 07/26/21 03/05/23 omeprazole 40 mg capsule,delayed 40 mg PO DAILY 07/26/21 03/05/23 release pravastatin 80 mg tablet 80 mg PO DAILY 07/26/21 03/05/23 quetiapine 50 mg tablet 75 mg PO DAILY 07/26/21 03/05/23 venlafaxine 75 mg capsule,extended 125 mg PO DAILY 07/26/21 03/05/23 release 24 hr amlodipine 5 mg tablet 5 mg PO DAILY 03/05/23 03/05/23 Allergies Allergy/AdvReac Type Severity Reaction Status Date / Time ciprofloxacin [From Cipro] Allergy Mild Rash Verified 03/05/23 09:24 cephalexin Allergy Rash Verified 03/05/23 08:57 erythromycin base Allergy Rash Verified 03/05/23 08:57 [facility] Past Medical History Medical History Burst fracture of lumbar vertebra L2, approx 2021 Depression with anxiety History of endometrial biopsy Hyperlipidemia Hypertension Surgical History Surgical History (Updated 03/05/23 @ 18:57 by Elena Barrera NP) H/O abdominoplasty H/O eye surgery H/O hand surgery H/O: hysterectomy History of endometrial ablation Hx of breast reduction, elective S/P tonsillectomy Family History Family History Mother Breast cancer Father Parkinson disease Social History Social History (Updated 10/09/24 @ 22:14 by Adri Carey MD) Social History: She is and lives alone. She had 2 children. 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 HEAD: Normocephalic, atraumatic. EYES: Non injected, non icteric ENT: Nares clear, no rhinorrhea or epistaxis. NECK: Supple. CHEST: Speaking in full sentences. No respiratory distress. HEART: Regular rate and rhythm. . ABDOMEN: Soft, nondistended. BACK: Patient able to demonstrate some flexion and extension at the lumbar spine. Transdermal patch in place. EXTREMITIES: No lower extremity edema. SKIN: Warm, dry, no rash. NEURO: No focal deficits. Alert and oriented x3. sensation intact to gross touch in the bilateral lower extremities. 5/5 strength with bilateral ankle dorsiflexion and plantar flexion. PSYCH: Normal mood and affect. Course Vital Signs Vital signs: Vital Signs Temperature 97 F L 10/09/24 10:30 Pulse Rate 69 10/09/24 10:30 Respiratory Rate 18 10/09/24 10:30 Blood Pressure 116/85 10/09/24 10:30 Pulse Oximetry 100 10/09/24 10:30 Oxygen Delivery Room Air 10/09/24 10:30 Temperature 98.1 F 10/09/24 13:31 Pulse Rate 67 10/09/24 13:31 Respiratory Rate 18 10/09/24 13:31 Blood Pressure 130/85 10/09/24 13:31 Pulse Oximetry 95 10/09/24 13:31 Oxygen Delivery Room Air 10/09/24 11:09 MDM - Fall MDM Narrative Medical decision making narrative: patient presents with low back pain since she slipped on water and fell on 10/03/2024. In the emergency department they are afebrile with vital signs within normal limits. She denies any radicular symptoms. CT with acute verses chronic L1 burst fracture However patient states she is certain that her previous burst fractur e was at L2 thus this is believed to possibly be new. Discussed multimodal pain regimen and balance rest with continuing to stay mobile and active. Discussed opioid safety and its use for breakthrough pain in addition to the other prescriptions. She verifies understanding. Stable for discharge. Advised follow-up. Differential Diagnosis Differential diagnosis: Likely compression fracture and other ( strain/sprain) Imaging Data Radiologist's impression: Impressions Lumbar Spine CT 10/09/24 12:16 IMPRESSION: 1. Acute versus subacute L1 burst fracture. 2. Moderate lumbar spondylosis. Discharge Plan Discharge Clinical Impression: Fall Fracture of L1 vertebra Qualifiers: Encounter type: initial encounter Fracture type: closed Fracture morphology: burst- stable Qualified Code(s): S32.011A - Stable burst fracture of first lumbar vertebra, initial encounter for closed fracture Patient Disposition: Home, Self-Care Condition: Stable Instructions: Antibiotic Form, Narcotic Safety (ED), Fall Prevention for Older Adults (ED), Thoracolumbar Fracture (ED) Additional Instructions: As we discussed, you have a burst fracture of L1. The recommendation is aggressive multimodal pain management To balance rest with maintaining activities of daily living and movement. Acetaminophen/Tylenol (maximum 4000 mg per day) is safe to take with NSAIDs (ibuprofen/Motrin) for pain relief. The muscle relaxer can also help at night and you can continue the topical lidocaine patches. For breakthrough pain, opiate pain medication has been prescribed. Remember given she has contains 325 mg of acetaminophen so take that into account so you do not overdose accidentally. Follow up with your primary care provider TITUS Alcantara through [facility]. If you are not improving, you may require additional imaging, alternative pain management, physical therapy, temporary placement in nursing home/rehab facility, etc. Prescriptions: New hydrocodone-acetaminophen 5-325 mg tablet 1 tablet PO Q8H PRN (Reason: pain) Qty: 20 0RF lidocaine 4 % adhesive patch,medicated 1 patch topical DAILY PRN (Reason: pain) Qty: 10 0RF methocarbamol 750 mg tablet 1,500 mg PO HS Qty: 14 0RF ibuprofen 600 mg tablet 600 mg PO TID PRN (Reason: pain) Qty: 30 0RF acetaminophen 500 mg capsule 1,000 mg PO Q6H PRN (Reason: pain) Qty: 30 0RF No Action venlafaxine 75 mg capsule,extended release 24hr 125 mg PO DAILY lisinopril 20 mg tablet 20 mg PO DAILY omeprazole 40 mg capsule,delayed release(DR/EC) 40 mg PO DAILY pravastatin 80 mg tablet 80 mg PO DAILY atenolol 50 mg tablet 50 mg PO DAILY quetiapine 50 mg tablet 75 mg PO DAILY amlodipine 5 mg tablet 5 mg PO DAILY hydrocodone-acetaminophen 5-325 mg Tablet 1 tablet PO Q8H PRN (Reason: Pain Rated 4-6) Qty: 14 0RF lidocaine [Lidoderm] 5 % Adhesive Patch,Medicated 1 patch transdermal DAILY Qty: 10 0RF Follow-up/Referrals: PHYSICIAN NOT ON STAFF,NONSTAFF [Non-Staff] - Time of Disposition: 13:21
[2024-10-09] MEDS: HYDROcodone/acetaminophen (*CRX) 5-325 MG TABLET 1 TAB PO (12:53)
[2024-10-09] MEDS: KETOROLAC 30 MG/ML VIAL (*BKC) 15 MG IM (13:30)
[2024-10-09 13:31] VITALS: BP 130/85; PULSE 67; RESP 18; TEMP 36.7; O2SAT 95
== END 2024-10-09 13:50 | disposition home or self-care (01) ==
PROVIDERS: Emergency Provider Student in an Organized Health Care Education/Training Program
DX: S32.011A Stable burst fracture of first lumbar vertebra, initial encounter for closed fracture (principal); E78.5 Hyperlipidemia, unspecified; I10 Essential (primary) hypertension; F41.8 Other specified anxiety disorders
CPT/HCPCS: 72131; 96372; 99284; A9270; J1885

== ENCOUNTER 2025-07-21 14:21 | Emergency (ER) | payer MEDICARE, OTHER, SELFPAY ==
--- OUTSIDE RECORDS SUMMARY | 2025-03-09 08:45 | XMS_ITS ---
Author Organization [facility] [employer] [facility] Address [facility] [address] [facility] [address] [place] [address] Care Team Providers Care Pricing Clerk Name Role Phone Chucho KELLER, Mya Primary Care Provider Unav ailVale Hirsch Unavailable [phone] REASON FOR VISIT Follow Up Social History Sex Assigned At : Social History Observation Description Sex Assigned At Female Encounters Encounter Location Date Provider Diagnosis [place] [address] [facility] [address] [place] [address] 03/09/2025 Vale Shaikh Plan Of Treatment No Information Progress Notes * SNEHASANDHYA LUJANDELLOB:1950 ( 75 yo F)Acc No.[id number]:03/09/2025 Patient: WANDA SANCHEZ Provider: TAMELA ROSEN :1950 A ge:75 Y S ex:Female Date:03/09/2025 Address:[facility] [address] [facility] Pcp:Mya Rankin MD Subjective: * Chief Complaints: * F ollow Up * Electronic signature of TAMELA Bolaños on 07/21/2025 at 02:27 PM CDT Sign off status: Pending * Provider: TAMELA ROSEN Date: 0 03/09/2025 Generated for Printi ng/Faxing/eTransmitting on: 0 07/21/2025 02:27 PM CDT
--- OUTSIDE RECORDS SUMMARY | 2025-06-29 06:00 | XMS_ITS ---
Author Organization [facility] [employer] [facility] Address [facility] [address] [facility] [address] [place] [address] Care Team Providers Care Mail Superintendent Name Role Phone Mya Rankin MD Primary Care Provider Unav ailsimone NevesvernVale Unavailable [phone] Alla Barry Unavailable [phone] REASON FOR VISIT Therapy Social History Sex Assigned At : Social History Observation Description Sex Assigned At Female Encounters Encounter Location Date Provider Diagnosis [facility] [employer] [facility] [address] [facility] [address] [place] [address] 06/29/2025 Alla Barry Plan Of Treatment No Information Progress Notes * SNEHASANDHYA LUJANDELLOB:1950 ( 75 yo F)Acc No.[id number]:06/29/2025 Patient: WANDA SANCHEZ Provider: Milana BARRY LCSW :1950 A ge:75 Y S ex:Female Date:06/29/2025 Address:[facility] [address], [facility] Pcp:May Rankin MD Data: * Chief Complaints: * T herapy * Electronic signature of Ayesha Barry LCSW on 07/21/2025 at 02:27 PM CDT Sign off status: Pending Signatures: No Ad Hoc Signature Added * Provider: Milana BARRY LCSW Date: 0 06/29/2025 Generated for Bk morales/Curtis/eTransmitting on: 0 07/21/2025 02:27 PM CDT
--- NOTE | ~2025-07-21 | CT_ITS ---
EXAMINATION: 1. CT facial & cervical spine wo DATE: 07/21/2025 17:03 INDICATION: Fall with head injury TECHNIQUE: 1. Computed tomography (CT) of the maxillofacial region and of the cervical spine were performed without intravenous contrast. Sagittal and coronal reconstructions of both regions were obtained. Automated exposure control and iterative reconstruction technique were employed. The dose-length product was 449.65 mGy-cm. COMPARISON: None. FINDINGS: Maxillofacial CT: Small subcutaneous hematoma along the lateral right orbital rim. No acute maxillofacial fractures. Specifically the zygomatic arches, mandible and gipson of the orbits and paranasal sinuses are all intact. Chronic appearing angulation of the left nasal bone without associated soft tissue swelling suggesting an old healed fracture. There is mild leftward bowing of the nasal septum which parallels the contours of the turbinates with no acute fracture. Mastoid air cells, middle ear cavities and the paranasal sinuses are clear. Cervical spine CT: Alignment is normal. Vertebral body heights are normal. No acute fracture. There are bridging or nearly bridging anterior osteophytes at multiple levels in the cervical and upper thoracic spine consistent with diffuse idiopathic skeletal hyperostosis (DISH). Severe disc height loss with fusion across portions of the disc spaces and endplate margins at C6-T1. Posterior endplate osteophytes result in mild central canal stenosis at C5-C6 and C6-C7. Multilevel cervical facet osteoarthritis, severe on the left at C3-C4 and mild and moderate throughout the remainder of the cervical and visualized upper thoracic spine. This along with multilevel uncovertebral osteoarthritis contributes to moderate neural foraminal stenosis on the left at C3-C4, on the right at C5-C6 with mild neural from stenosis at several of the remaining levels. Visualized apices of lungs are clear. Cervical soft tissues are unremarkable. IMPRESSION: 1. Severe cervical spondylosis with no acute osseous adenopathy. 2. Old left nasal bone fracture. No acute maxillofacial fractures. Reviewed, dictated and finalized at location A.
--- NOTE | ~2025-07-21 | CT_ITS ---
EXAMINATION: CT brain wo con DATE: 07/21/2025 17:03 INDICATION: Fall with head injury TECHNIQUE: Computed tomography (CT) of the head was performed without intravenous contrast. Sagittal and coronal reconstructions were performed. The mA was adjusted according to patient size. Iterative reconstruction technique was employed. The dose-length product was 605.33 mGy-cm. COMPARISON: None FINDINGS: No fracture. No acute intracranial hemorrhage, acute infarction or abnormal extra axial fluid collection. There is mild scattered white matter hypoattenuation consistent with chronic small vessel ischemic disease. Symmetric prominence of the sulci and ventricles consistent with mild age-appropriate d iffuse cerebral volume loss. Ventricles are normal and symmetric. No mass/mass effect. The orbits, paranasal sinuses and mastoid air cells are normal. IMPRESSION: 1. Normal aging brain. No fracture or acute intracranial process. Reviewed, dictated and finalized at location A.
--- NOTE | ~2025-07-21 | XR_ITS ---
EXAMINATION: XR humerus RT, 07/21/2025 16:25 CDT HISTORY: fall, pain COMPARISON: No comparisons available. Findings: No acute fracture or malalignment. Moderate degenerative changes Soft tissues unremarkable. Impression: No acute fracture or malalignment. Reviewed, dictated and finalized at location A. Impression: No acute fracture or malalignment.
--- OUTSIDE RECORDS SUMMARY | 2025-07-21 14:25 | XMS_ITS ---
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 Name Role Phone Kimberlyn Winkler Unavailable Griffin Finchelle Unavailable [phone] Functional Status No Results Mental Status No Results Allergies and Intolerances Name Onset Date Reaction Severity erythromycin (Allergy) SunFeb 08 12:41:00 EDT 2 025 Cipro (Allergy) SunFeb 08 12:41:00 EDT 2024 cephalexin (Allergy) SunFeb 08 12:39:00 EDT 202 5 Encounters Program Name Primary Diagnosis Admission Date/Time Dis charge Date/Time Residential Care Facility Nursing [facility] Unit SunFeb 08 07:36:00 EDT 2024Feb 24 10:50:00 EDT 2024 Immunizations Name Dates Status TST-PPD intradermal SunFeb 11 01:00:00 EDT 2024 Completed TST-PPD intradermal SunFeb 09 01:00:00 EDT 2024 Completed TST-PPD intradermal SunFeb 16 01:00:00 EDT 2024 Completed TST-PPD intradermal SunFeb 18 01:00:00 EDT 2024 Completed Medications Medication Directions Start Date End Date methylPREDNISolone acetate 4 0 mg/mL suspension for injection 20mg VIAL (ML) Intramuscular 1 Time Daily for 1 Day Indication: pain mix with 5cc Lidocaine to inject R hip SunFeb 19 07:00:00 EDT 2024Feb 20 06:59:00 EDT 2024 lidocaine 4 % topical patch 1 pacth ADHE SIVE PATCH, MEDICATED Topical 2 Times Daily apply to back on in am and off at HSIndication: pain SunFeb 10 07:00:00 EDT 2024Feb 09 12:50:00 EDT 2024 QUEtiapine 50 mg tablet 3 tablets TABLET Oral 1 Time Daily Indication: major depressive disorder SunFeb 09 12:19:00 EDT 2024Feb 24 01:00:00 EDT 2024 acetaminophen 500 mg tablet 1 tablet TAB LET Oral PRN Every 6 Hours Indication: pain SunFeb 09 12:41:00 EDT 2024Feb 09 16:55:00 EDT 2024 venlafaxine ER 75 mg capsule,extended release 24 hr 1 capsule CAPSULE, EXT RELEASE 24 HR Oral 1 Time Daily Indication: Depression SunFeb 09 12:48:00 EDT 2024Feb 24 01:00:00 EDT 2024 Lidocaine Pain Relief 4 % topical patch 1 pacth ADHESIVE PATCH, MEDICATED Topical 2 Times Daily apply to back on in am and off at HSIndication: pain SunFeb 09 12:49:00 EDT 2024Feb 24 01:00:00 EDT 2024 acetaminophen 500 mg tablet 2 tablet TAB LET Oral PRN Every 6 Hours Indication: pain SunFeb 09 16:54:00 EDT 2024Feb 24 01:00:00 EDT 2024 melatonin 10 mg tablet 1 tablet TABLET O ral PRN Hour Of Sleep for 90 Days Indication: insomnia SunFeb 09 19:38:00 EDT 2024Feb 24 01:00:00 EDT 2024 TubersoL 5 tub. unit/0.1 mL intradermal injection solution 0.1 ml VIAL (ML) Intradermal 1 Time Weekly for 2 Weeks Indication: admit 1st injection on admission, then one week after. Read between 48 and 72 hours SunFeb 09 07:00:00 EDT 2024Feb 23 06:59:00 EDT 2024 TubersoL 5 tub. unit/0.1 mL intradermal injection solution Read Results VIAL (ML) Other 1 Time Weekly for 2 Weeks Indication: admit Read results between 48-72 hours after 1st and 2nd (1 week apart). Any reading of 10mm or greater results in a positive test, an x-ray will need to be ordered as a follow up. SunFeb 11 07:00:00 EDT 2024Feb 24 01:00:00 EDT 2024 acetaminophen 500 mg tablet 1 tablet TAB LET Oral PRN Every 6 Hours Indication: pain SunFeb 08 14:25:00 EDT 2024Feb 09 12:42:00 EDT 2024 atenoloL 50 mg tablet 1 tablet TABLET Or al 1 Time Daily Indication: HTN SunFeb 09 07:00:00 ED2024Feb 24 01:00:00 ED2024 docusate sodium 100 mg capsule 1 capsule CAPSULE Oral 2 Times Daily Indication: constipation SunFeb 08 21:00:00 ED2024Feb 24 01:00:00 EDT 2024 lidocaine 5 % topical patch 1 patch ADHE SIVE PATCH, MEDICATED Topical 2 Times Daily Indication: pain to lower back. Apply to lower back in AM and remove at HS SunFeb 09 07:00:00 EDT 2024Feb 09 12:19:00 EDT 2024 lisinopriL 40 mg tablet 1 tablet TABLET Oral 1 Time Daily Indication: HTN SunFeb 09 07:00:00 2024Feb 24 01:00:00 EDT 2024 melatonin 10 mg tablet 1 tablet TABLET O ral PRN Hour Of Sleep Indication: insomnia SunFeb 08 21:00:00 2024Feb 09 19:39:00 EDT 2024 Multivitamin 50 Plus tablet 1 tablet TAB LET Oral 1 Time Daily Indication: supplement SunFeb 08 15:00:00 2024Feb 24 01:00:00 EDT 2024 omeprazole 40 mg capsule,delayed release 1 capsule CAPSULE,DELAYED RELEASE (ENTERIC COATED) Oral 1 Time Daily Indication: GERD SunFeb 08 15:00:00 2024Feb 24 01:00:00 ED2024 pravastatin 80 mg tablet 1 tablet TABLET Oral 1 Time Daily Indication: high cholesterol SunFeb 08 15:00:00 2024Feb 24 01:00:00 ED2024 senna 8.6 mg tablet 1 tablet TABLET Oral 2 Times Daily Indication: constipation SunFeb 08 15:00:00 2024Feb 24 01:00:00 ED2024 QUEtiapine 50 mg tablet 3 tablets TABLET Oral 1 Time Daily Indication: insomnia SunFeb 08 21:00:00 2024Feb 09 12:20:00 2024 traZODone 100 mg tablet 1 tablet TABLET Oral 1 Time Daily Indication: insomnia/depression SunFeb 08 21:00:00 2024Feb 24 01:00:00 ED2024 venlafaxine ER 75 mg capsule,extended release 24 hr 1 capsule CAPSULE, EXT RELEASE 24 HR Oral 1 Time Daily Indication: antidepressant SunFeb 09 07:00:00 EDT 2024Feb 09 12:49:00 EDT 2024 turmeric root extract 150 mg-gio root extract 25 mg chewable tablet 1 TABLET TABLET,CHEWABLE Oral 1 Time Daily Indication: supplement SunFeb 09 07:00:00 EDT 2024Feb 24 01:00:00 EDT 2024 Problems Active Concerns * Adult failure to thrive* Code: * Start Date: SunFeb 08 00:00:00 EDT 2024 * End Date: * Text: * Obesity, unspecified* Code: * Start Date: SunFeb 08 00:00:00 EDT 2024 * End Date: * Text: * Other specified anxiety disorders* Code: * Start Date: SunFeb 08 00:00:00 EDT 2024 * End Date: * Text: * Repeated falls* Code: * Start Date: SunFeb 08 00:00:00 EDT 2024 * End Date: * Text: * Gastro-esophageal reflux disease without esophagitis* Code: * Start Date: SunFeb 08 00:00:00 EDT 2024 * End Date: * Text: * Hyperlipidemia, unspecified* Code: * Start Date: SunFeb 08 00:00:00 EDT 2024 * End Date: * Text: * Collapsed vertebra, not elsewhere classified, lumbar region, subsequent encounter for fracture withroutine healing* Code: * Start Date: SunFeb 08 00:00:00 EDT 2024 * End Date: * Text: * Spinal stenosis, lumbar region without neurogenic claudication* Code: * Start Date: SunFeb 08 00:00:00 EDT 2024 * End Date: * Text: * Body mass index [BMI] 31.0-31.9, adult* Code: * Start Date: SunFeb 08 00:00:00 EDT 2024 * End Date: * Text: * Other chronic pain* Code: * Start Date: SunFeb 08 00:00:00 EDT 2024 * End Date: * Text: * Displaced fracture of lateral end of left clavicle, subsequent encounter for fracture with routine healing* Code: * Start Date: SunFeb 08 00:00:00 EDT 2024 * End Date: * Text: * Hypertensive heart and chronic kidney disease with heart failure and stage 1 through stage 4 chronic kidney disease, or unspecified chronic kidney disease * Code: * Start Date: SunFeb 08 00:00:00 EDT 2024 * End Date: * Text: * Chronic kidney disease, stage 2 (mild)* Code: * Start Date: SunFeb 08 00:00:00 EDT 2024 * End Date: * Text: * Personal history of malignant neoplasm of other parts of uterus* Code: * Start Date: SunFeb 08 00:00:00 EDT 2024 * End Date: * Text: * Heart failure, unspecified* Code: * Start Date: SunFeb 08 00:00:00 EDT 2024 * End Date: SunFeb 10 00:00:00 EDT 2024 * Text: * Acquired absence of both cervix and uterus* Code: * Start Date: SunFeb 08 00:00:00 EDT 2024 * End Date: * Text: * Chronic diastolic (congestive) heart failure* Code: * Start Date: SunFeb 08 00:00:00 EDT 2024 * End Date: * Text: * Anemia, unspecified* Code: * Start Date: SunFeb 08 00:00:00 EDT 2024 * End Date: * Text: * Personal history of peptic ulcer disease* Code: * Start Date: SunFeb 08 00:00:00 EDT 2024 * End Date: * Text: * Constipation, unspecified* Code: * Start Date: SunFeb 08 00:00:00 EDT 2024 * End Date: * Text: * Irritable bowel syndrome, unspecified* Code: * Start Date: SunFeb 08 00:00:00 EDT 2024 * End Date: * Text: * Unspecified osteoarthritis, unspecified site* Code: * Start Date: SunFeb 08 00:00:00 EDT 2024 * End Date: * Text: * Agoraphobia, unspecified* Code: * Start Date: SunFeb 08 00:00:00 EDT 2024 * End Date: * Text: * Insomnia, unspecified* Code: * Start Date: SunFeb 08 00:00:00 EDT 2024 * End Date: * Text: * Alcohol use, unspecified, uncomplicated* Code: * Start Date: SunFeb 08 00:00:00 EDT 2024 * End Date: * Text: * Personal history of other diseases of the digestive system* Code: * Start Date: SunFeb 08 00:00:00 EDT 2024 * End Date: * Text: * [id number] Sirisha receives a therapeutic diet. (12)* Code: * Start Date: SunFeb 16 00:00:00 EDT 2024 * End Date: * Text: [id number] Sirisha receives a therapeutic diet. (12) * LSS_Antipsychotic Use - Sirisha is currently taking antipsychotic medications.* Code: * Start Date: SunFeb 20 00:00:00 EDT 2024 * End Date: * Text: LSS_Antipsychotic Use - Sirisha is currently taking antipsychotic medications. * LSS_Psychotropic Drug Use - Use of psychotropic drug use places Sirisha at risk for drug-related sideeffects.* Code: * Start Date: SunFeb 20 00:00:00 EDT 2024 * End Date: * Text: LSS_Psychotropic Drug Use - Use of psychotropic drug use places Sirisha at risk for drug-related side effects. * LSS_Falls - Sirisha is at risk for falls/injury as evidenced by: history of falls, cognitive status/behavior, vision status, continence, mobility, balance.* Code: * Start Date: SunFeb 20 00:00:00 EDT 2024 * End Date: * Text: LSS_Falls - Sirisha is at risk for falls/injury as evidenced by: history of falls, cognitive status/behavior, vision status, continence, mobility, balance. * LSS_Pain - Sirisha is experiencing pain or is at high risk for pain.* Code: * Start Date: SunFeb 20 00:00:00 EDT 2024 * End Date: * Text: LSS_Pain - Sirisha is experiencing pain or is at high risk for pain. * LSS_Skin Integrity - (Potential Alteration of)- Sirisha is at risk for developing impaired skin integrity.* Code: * Start Date: SunFeb 20 00:00:00 EDT 2024 * End Date: * Text: LSS_Skin Integrity - (Potential Alteration of)- Sirisha is at risk for developing impaired skinintegrity. * LSS_ADLs - Sirisha has ADL selfcare deficit related to decreased mobility and muscle weakness* Code: * Start Date: SunFeb 20 00:00:00 EDT 2024 * End Date: * Text: LSS_ADLs - Sirisha has ADL selfcare deficit related to decreased mobility and muscle weakness * [employer] Juan Pablo Grimm's wishes will be followed (Advanced Directive/Code Status).* Code: * Start Date: SunFeb 16:00:00 EDT 2024 * End Date: * Text: ROSETT[employer]ocial Juan Pablo Grimm's wishes will be followed (Advanced Directive/Code Status). * ROSETTASocial Juan Pablo Grimm will be involved in goal development to the best of his or her ability.* Code: * Start Date: SunFeb 16:00:00 EDT 2024 * End Date: * Text: [place] Juan Pablo Grimm will be involved in goal development to the best of his or her ability. * [employer] Juan Pablo Grimm has family/friends who are supportive.* Code: * Start Date: SunFeb 16:00:00 EDT 2024 * End Date: * Text: [employer] Juan Pablo Grimm has family/friends who are supportive. * [employer] Juan Pablo Grimm's mobility level is different than prior level due to current medical condition.* Code: * Start Date: SunFeb 16:00:00 EDT 2024 * End Date: * Text: ROSETT[employer]ocial Juan Pablo Grimm's mobility level is different than prior level due to current medical condition. * ROSETTASocial Juan Pablo Grimm has a dx of depression and is currently on an antidepressant.* Code: * Start Date: SunFeb 16:00:00 EDT 2024 * End Date: * Text: ROSETT[employer]ocial Juan Pablo Grimm has a dx of depression and is currently on an antidepressant. * ROSETTASocial Juan Pablo Grimm will be involved in discharge planning.* Code: * Start Date: SunFeb 16:00:00 EDT 2024 * End Date: * Text: [employer] Juan Pablo Grimm will be involved in discharge planning. Vital Signs Vital Sign Measurement Date Systolic Blood Pressure 132.00 mm[Hg] SunFeb 24 12:07:40 EDT 2024 Diastolic Blood Pressure 70.00 mm[Hg] SunFeb 24 12:07:40 EDT 2024 Systolic Blood Pressure 132.00 mm[Hg] SunFeb 24 12:07:40 EDT 2024 Diastolic Blood Pressure 70.00 mm[Hg] SunFeb 24 12:07:40 EDT 2024 Heart Rate 72.00 /min SunFeb 24 12:07 :40 EDT 2024 Systolic Blood Pressure 145.00 mm[Hg] SunFeb 24 00:22:46 EDT 2024 Diastolic Blood Pressure 73.00 mm[Hg] SunFeb 24 00:22:46 EDT 2024 Pulse Oximetry 94.00 % SunFeb 24 00:22 :46 EDT 2024 Heart Rate 63.00 /min SunFeb 24 00:22 :46 EDT 2024 Body temperature 97.30 [degF] SunFeb 24 00:2 2:46 EDT 2024 Respiratory rate 20.00 /min SunFeb 24 00:2 2:46 EDT 2024 Body weight 197.80 [lb_av] SunFeb 23 17:36 :11 EDT 2024 Systolic Blood Pressure 125.00 mm[Hg] SunFeb 23 09:26:03 EDT 2024 Diastolic Blood Pressure 78.00 mm[Hg] SunFeb 23 09:26:03 EDT 2024 Systolic Blood Pressure 125.00 mm[Hg] SunFeb 23 09:26:03 EDT 2024 Diastolic Blood Pressure 78.00 mm[Hg] SunFeb 23 09:26:03 EDT 2024 Systolic Blood Pressure 125.00 mm[Hg] SunFeb 23 09:26:03 EDT 2024 Diastolic Blood Pressure 78.00 mm[Hg] SunFeb 23 09:26:03 EDT 2024 Pulse Oximetry 93.00 % SunFeb 23 09:26 :03 EDT 2024 Heart Rate 67.00 /min SunFeb 23 09:26 :03 EDT 2024 Heart Rate 67.00 /min SunFeb 23 09:26 :03 EDT 2024 Body temperature 97.20 [degF] SunFeb 23 09:2 6:03 EDT 2024 Respiratory rate 20.00 /min SunFeb 23 09:2 6:03 EDT 2024 Systolic Blood Pressure 153.00 mm[Hg] SunFeb 23 00:38:36 EDT 2024 Diastolic Blood Pressure 88.00 mm[Hg] SunFeb 23 00:38:36 EDT 2024 Pulse Oximetry 93.00 % SunFeb 23 00:38 :36 EDT 2024 Heart Rate 69.00 /min SunFeb 23 00:38 :36 EDT 2024 Body temperature 97.00 [degF] SunFeb 23 00:3 8:36 EDT 2024 Respiratory rate 20.00 /min SunFeb 23 00:3 8:36 EDT 2024 Body weight 198.40 [lb_av] Sun Jan 30 13:42 :41 EDT 2024 Systolic Blood Pressure 119.00 mm[Hg] Sun Jan 30 10:30:03 EDT 2024 Diastolic Blood Pressure 61.00 mm[Hg] Sun Feb 22 10:30:03 EDT 2024 Systolic Blood Pressure 119.00 mm[Hg] Sun Feb 22 10:30:03 EDT 2024 Diastolic Blood Pressure 61.00 mm[Hg] Sun Feb 22 10:30:03 EDT 2024 Systolic Blood Pressure 119.00 mm[Hg] Sun Feb 22 10:30:03 EDT 2024 Diastolic Blood Pressure 61.00 mm[Hg] Sun Feb 22 10:30:03 EDT 2024 Pulse Oximetry 93.00 % SunFeb 22 10:30 :03 EDT 2024 Heart Rate 72.00 /min Sun Feb 22 10:30 :03 EDT 2024 Heart Rate 72.00 /min Sun Feb 22 10:30 :03 EDT 2024 Body temperature 97.10 [degF] SunFeb 22 10:3 0:03 EDT 2024 Respiratory rate 18.00 /min Sun Feb 22 10:3 0:03 EDT 2024 Systolic Blood Pressure 153.00 mm[Hg] Sat Mar 29 23:38:44 EDT 2024 Diastolic Blood Pressure 82.00 mm[Hg] Sat Mar 29 23:38:44 EDT 2024 Pulse Oximetry 95.00 % Sat Mar 29 23:38 :44 EDT 2024 Heart Rate 67.00 /min Sat Mar 29 23:38 :44 EDT 2024 Body temperature 97.40 [degF] Sat Mar 29 23:3 8:44 EDT 2024 Respiratory rate 18.00 /min Sat Mar 29 23:3 8:44 EDT 2024 Systolic Blood Pressure 144.00 mm[Hg] Sat Mar 29 11:45:27 EDT 2024 Diastolic Blood Pressure 78.00 mm[Hg] Sat Mar 29 11:45:27 EDT 2024 Pulse Oximetry 93.00 % Sat Mar 29 11:45 :27 EDT 2024 Body weight 199.00 [lb_av] Sat Mar 29 11:45 :27 EDT 2025 Heart Rate 68.00 /min Sat Mar 29 11:45 :27 EDT 2024 Body temperature 97.60 [degF] [facility] Jan 29 11:4 5:27 EDT 2024 Respiratory rate 18.00 /min [facility] Jan 29 11:4 5:27 EDT 2024 Systolic Blood Pressure 144.00 mm[Hg] [facility] Jan 29 09:10:10 EDT 2024 Diastolic Blood Pressure 78.00 mm[Hg] [facility] Jan 29 09:10:10 EDT 2024 Systolic Blood Pressure 144.00 mm[Hg] [facility] Feb 21 09:10:10 EDT 2024 Diastolic Blood Pressure 78.00 mm[Hg] [facility] Feb 21 09:10:10 EDT 2024 Heart Rate 68.00 /min [facility] Feb 21 09:10 :10 EDT 2024 Systolic Blood Pressure 105.00 mm[Hg] [facility] Feb 21 00:09:04 EDT 2024 Diastolic Blood Pressure 65.00 mm[Hg] [facility] Feb 21 00:09:04 EDT 2024 Pulse Oximetry 94.00 % [facility] Feb 21 00:09 :04 EDT 2024 Heart Rate 68.00 /min [facility] Feb 21 00:09 :04 EDT 2024 Body temperature 97.80 [degF] [facility] Feb 21 00:0 9:04 EDT 2024 Respiratory rate 18.00 /min [facility] Feb 21 00:0 9:04 EDT 2024 Body weight 198.80 [lb_av] SunFeb 20 14:18 :48 EDT 2024 Systolic Blood Pressure 125.00 mm[Hg] SunFeb 20 09:21:38 EDT 2024 Diastolic Blood Pressure 86.00 mm[Hg] SunFeb 20 09:21:38 EDT 2024 Systolic Blood Pressure 125.00 mm[Hg] SunFeb 20 09:21:38 EDT 2024 Diastolic Blood Pressure 86.00 mm[Hg] SunFeb 20 09:21:38 EDT 2024 Systolic Blood Pressure 125.00 mm[Hg] SunFeb 20 09:21:38 EDT 2024 Diastolic Blood Pressure 86.00 mm[Hg] SunFeb 20 09:21:38 EDT 2024 Pulse Oximetry 93.00 % SunFeb 20 09:21 :38 EDT 2024 Heart Rate 77.00 /min SunFeb 20 09:21 :38 EDT 2024 Heart Rate 77.00 /min SunFeb 20 09:21 :38 EDT 2024 Body temperature 97.00 [degF] SunFeb 20 09:2 1:38 EDT 2024 Respiratory rate 20.00 /min SunFeb 20 09:2 1:38 EDT 2024 Systolic Blood Pressure 147.00 mm[Hg] SunFeb 20 00:57:07 EDT 2024 Diastolic Blood Pressure 77.00 mm[Hg] SunFeb 20 00:57:07 EDT 2024 Pulse Oximetry 93.00 % SunFeb 20 00:57 :07 EDT 2024 Heart Rate 74.00 /min SunFeb 20 00:57 :07 EDT 2024 Body temperature 97.10 [degF] SunFeb 20 00:5 7:07 EDT 2024 Respiratory rate 18.00 /min SunFeb 20 00:5 7:07 EDT 2024 Body weight 200.70 [lb_av] SunFeb 19 13:21 :04 EDT 2024 Systolic Blood Pressure 160.00 mm[Hg] Nichloe Feb 19 10:59:08 EDT 2024 Diastolic Blood Pressure 91.00 mm[Hg] Nichole Feb 19 10:59:08 EDT 2024 Pulse Oximetry 93.00 % Nichole Feb 19 10:59 :08 EDT 2024 Heart Rate 85.00 /min Nichole Feb 19 10:59 :08 EDT 2024 Body temperature 97.60 [degF] Nichole Feb 19 10:5 9:08 EDT 2024 Respiratory rate 20.00 /min Nichole Feb 19 10:5 9:08 EDT 2024 Systolic Blood Pressure 160.00 mm[Hg] Nichole Feb 19 09:48:13 EDT 2024 Diastolic Blood Pressure 91.00 mm[Hg] Nichole Feb 19 09:48:13 EDT 2024 Systolic Blood Pressure 160.00 mm[Hg] SunFeb 19 09:48:13 EDT 2024 Diastolic Blood Pressure 91.00 mm[Hg] SunFeb 19 09:48:13 EDT 2024 Heart Rate 85.00 /min SunFeb 19 09:48 :13 EDT 2024 Systolic Blood Pressure 140.00 mm[Hg] SunFeb 18 23:09:57 EDT 2024 Diastolic Blood Pressure 73.00 mm[Hg] SunFeb 18 23:09:57 EDT 2024 Pulse Oximetry 94.00 % SunFeb 18 23:09 :57 EDT 2024 Heart Rate 69.00 /min SunFeb 18 23:09 :57 EDT 2024 Body temperature 97.20 [degF] SunFeb 18 23:0 9:57 EDT 2024 Respiratory rate 20.00 /min SunFeb 18 23:0 9:57 EDT 2024 Body weight 199.80 [lb_av] SunFeb 18 14:32 :31 EDT 2024 Systolic Blood Pressure 139.00 mm[Hg] SunFeb 18 10:43:38 EDT 2024 Diastolic Blood Pressure 66.00 mm[Hg] SunFeb 18 10:43:38 EDT 2024 Pulse Oximetry 93.00 % SunFeb 18 10:43 :38 EDT 2024 Heart Rate 72.00 /min SunFeb 18 10:43 :38 EDT 2024 Body temperature 97.70 [degF] SunFeb 18 10:4 3:38 EDT 2024 Respiratory rate 16.00 /min SunFeb 18 10:4 3:38 EDT 2024 Systolic Blood Pressure 139.00 mm[Hg] SunFeb 18 09:20:45 EDT 2024 Diastolic Blood Pressure 66.00 mm[Hg] SunFeb 18 09:20:45 EDT 2024 Systolic Blood Pressure 139.00 mm[Hg] SunFeb 18 09:20:45 EDT 2024 Diastolic Blood Pressure 66.00 mm[Hg] SunFeb 18 09:20:45 EDT 2024 Heart Rate 72.00 /min SunFeb 18 09:20 :45 EDT 2024 Systolic Blood Pressure 128.00 mm[Hg] SunFeb 18 00:06:00 EDT 2024 Diastolic Blood Pressure 79.00 mm[Hg] SunFeb 18 00:06:00 EDT 2024 Pulse Oximetry 92.00 % SunFeb 18 00:06 :00 EDT 2024 Heart Rate 72.00 /min SunFeb 18 00:06 :00 EDT 2024 Body temperature 97.30 [degF] SunFeb 18 00:0 6:00 EDT 2024 Respiratory rate 18.00 /min SunFeb 18 00:0 6:00 EDT 2024 Body weight 201.00 [lb_av] SunFeb 17 12:35 :57 EDT 2024 Systolic Blood Pressure 138.00 mm[Hg] SunFeb 17 09:00:09 EDT 2024 Diastolic Blood Pressure 76.00 mm[Hg] SunFeb 17 09:00:09 EDT 2024 Systolic Blood Pressure 138.00 mm[Hg] SunFeb 17 09:00:09 EDT 2024 Diastolic Blood Pressure 76.00 mm[Hg] SunFeb 17 09:00:09 EDT 2024 Systolic Blood Pressure 138.00 mm[Hg] SunFeb 17 09:00:09 EDT 2024 Diastolic Blood Pressure 76.00 mm[Hg] SunFeb 17 09:00:09 EDT 2024 Pulse Oximetry 93.00 % SunFeb 17 09:00 :09 EDT 2024 Heart Rate 74.00 /min SunFeb 17 09:00 :09 EDT 2024 Heart Rate 74.00 /min SunFeb 17 09:00 :09 EDT 2024 Body temperature 97.80 [degF] SunFeb 17 09:0 0:09 EDT 2024 Respiratory rate 16.00 /min SunFeb 17 09:0 0:09 EDT 2024 Systolic Blood Pressure 140.00 mm[Hg] SunFeb 17 00:24:55 EDT 2024 Diastolic Blood Pressure 82.00 mm[Hg] SunFeb 17 00:24:55 EDT 2024 Pulse Oximetry 95.00 % SunFeb 17 00:24 :55 EDT 2024 Heart Rate 69.00 /min SunFeb 17 00:24 :55 EDT 2024 Body temperature 97.10 [degF] SunFeb 17 00:2 4:55 EDT 2024 Respiratory rate 20.00 /min SunFeb 17 00:2 4:55 EDT 2024 Body weight 201.80 [lb_av] SunFeb 16 12:36 :08 EDT 2024 Systolic Blood Pressure 132.00 mm[Hg] SunFeb 16 08:46:12 EDT 2024 Diastolic Blood Pressure 69.00 mm[Hg] SunFeb 16 08:46:12 EDT 2024 Systolic Blood Pressure 132.00 mm[Hg] SunFeb 16 08:46:12 EDT 2024 Diastolic Blood Pressure 69.00 mm[Hg] SunFeb 16 08:46:12 EDT 2024 Systolic Blood Pressure 132.00 mm[Hg] SunFeb 16 08:46:12 EDT 2024 Diastolic Blood Pressure 69.00 mm[Hg] SunFeb 16 08:46:12 EDT 2024 Pulse Oximetry 94.00 % SunFeb 16 08:46 :12 EDT 2024 Heart Rate 74.00 /min SunFeb 16 08:46 :12 EDT 2024 Heart Rate 74.00 /min SunFeb 16 08:46 :12 EDT 2024 Body temperature 98.10 [degF] SunFeb 16 08:4 6:12 EDT 2024 Respiratory rate 18.00 /min SunFeb 16 08:4 6:12 EDT 2024 Systolic Blood Pressure 125.00 mm[Hg] SunFeb 16 00:53:02 EDT 2024 Diastolic Blood Pressure 72.00 mm[Hg] SunFeb 16 00:53:02 EDT 2024 Pulse Oximetry 94.00 % SunFeb 16 00:53 :02 EDT 2024 Heart Rate 76.00 /min SunFeb 16 00:53 :02 EDT 2024 Body temperature 97.30 [degF] SunFeb 16 00:5 3:02 EDT 2024 Respiratory rate 20.00 /min SunFeb 16 00:5 3:02 EDT 2024 Systolic Blood Pressure 146.00 mm[Hg] SunFeb 15 14:00:36 EDT 2024 Diastolic Blood Pressure 86.00 mm[Hg] SunFeb 15 14:00:36 EDT 2024 Pulse Oximetry 92.00 % SunFeb 15 14:00 :36 EDT 2024 Body weight 201.40 [lb_av] SunFeb 15 14:00 :36 EDT 2024 Heart Rate 83.00 /min SunFeb 15 14:00 :36 EDT 2024 Body temperature 97.30 [degF] SunFeb 15 14:0 0:36 EDT 2024 Respiratory rate 18.00 /min SunFeb 15 14:0 0:36 EDT 2024 Systolic Blood Pressure 146.00 mm[Hg] SunFeb 15 13:41:28 EDT 2024 Diastolic Blood Pressure 86.00 mm[Hg] SunFeb 15 13:41:28 EDT 2024 Systolic Blood Pressure 146.00 mm[Hg] SunFeb 15 13:41:28 EDT 2024 Diastolic Blood Pressure 86.00 mm[Hg] SunFeb 15 13:41:28 EDT 2024 Heart Rate 83.00 /min SunFeb 15 13:41 :28 EDT 2024 Systolic Blood Pressure 158.00 mm[Hg] Sat Jan 22 21:09:20 EDT 2024 Diastolic Blood Pressure 79.00 mm[Hg] SunFeb 14 21:09:20 EDT 2024 Pulse Oximetry 92.00 % [facility] Mar 22 21:09 :20 EDT 2024 Heart Rate 72.00 /min Sat Mar 22 21:09 :20 EDT 2024 Body temperature 97.70 [degF] Sat Mar 22 21:0 9:20 EDT 2024 Respiratory rate 20.00 /min Sat Jan 22 21:0 9:20 EDT 2024 Systolic Blood Pressure 159.00 mm[Hg] Sat Mar 22 10:38:43 EDT 2024 Diastolic Blood Pressure 84.00 mm[Hg] Sat Mar 22 10:38:43 EDT 2024 Pulse Oximetry 93.00 % [facility] Jan 22 10:38 :43 EDT 2024 Body weight 201.60 [lb_av] [facility] Jan 22 10:38 :43 EDT 2024 Heart Rate 81.00 /min [facility] Jan 22 10:38 :43 EDT 2024 Body temperature 97.30 [degF] [facility] Jan 22 10:3 8:43 EDT 2024 Respiratory rate 20.00 /min [facility] Jan 22 10:3 8:43 EDT 2024 Systolic Blood Pressure 159.00 mm[Hg] [facility] Mar 22 09:29:44 EDT 2024 Diastolic Blood Pressure 84.00 mm[Hg] [facility] Jan 22 09:29:44 EDT 2024 Systolic Blood Pressure 159.00 mm[Hg] [facility] Mar 22 09:29:44 EDT 2024 Diastolic Blood Pressure 84.00 mm[Hg] [facility] Mar 22 09:29:44 EDT 2024 Heart Rate 81.00 /min [facility] Jan 22 09:29 :44 EDT 2024 Systolic Blood Pressure 149.00 mm[Hg] [facility] Jan 22 02:00:03 EDT 2024 Diastolic Blood Pressure 84.00 mm[Hg] [facility] Jan 22 02:00:03 EDT 2024 Pulse Oximetry 95.00 % [facility] Jan 22 02:00 :03 EDT 2024 Heart Rate 71.00 /min [facility] Jan 22 02:00 :03 EDT 2024 Body temperature 97.30 [degF] [facility] Jan 22 02:0 0:03 EDT 2024 Respiratory rate 18.00 /min [facility] Jan 22 02:0 0:03 EDT 2024 Body weight 200.60 [lb_av] SunFeb 13 13:51 :24 EDT 2024 Systolic Blood Pressure 155.00 mm[Hg] SunFeb 13 09:13:27 EDT 2025 Diastolic Blood Pressure 84.00 mm[Hg] Sun 21 09:13:27 EDT 5 Systolic Blood Pressure 155.00 mm[Hg] Sun 21 09:13:27 EDT 5 Diastolic Blood Pressure 84.00 mm[Hg] Sun 21 09:13:27 EDT 5 Systolic Blood Pressure 155.00 mm[Hg] SunFeb 13 09:13:27 EDT 5 Diastolic Blood Pressure 84.00 mm[Hg] SunFeb 13 09:13:27 EDT 2024 Pulse Oximetry 91.00 % SunFeb 13 09:13 :27 EDT 2024 Heart Rate 79.00 /min SunFeb 13 09:13 :27 EDT 2024 Heart Rate 79.00 /min SunFeb 13 09:13 :27 EDT 2024 Body temperature 97.40 [degF] SunFeb 13 09:1 3:27 EDT 2024 Respiratory rate 20.00 /min SunFeb 13 09:1 3:27 EDT 2024 Systolic Blood Pressure 153.00 mm[Hg] Nicholejan 20 22:07:24 EDT 2024 Diastolic Blood Pressure 86.00 mm[Hg] Nichole Feb 12 22:07:24 EDT 2024 Pulse Oximetry 94.00 % Nichole Feb 12 22:07 :24 EDT 2024 Heart Rate 73.00 /min Nichole Feb 12 22:07 :24 EDT 2024 Body temperature 97.30 [degF] Nichole Feb 12 22:0 7:24 EDT 2024 Respiratory rate 20.00 /min Nicholejan 20 22:0 7:24 EDT 2024 Systolic Blood Pressure 144.00 mm[Hg] Nicholejan 20 10:14:53 EDT 2024 Diastolic Blood Pressure 76.00 mm[Hg] Nichoeljan 20 10:14:53 EDT 2024 Pulse Oximetry 91.00 % Nicholejan 20 10:14 :53 EDT 2024 Body weight 199.80 [lb_av] Nicholejan 20 10:14 :53 EDT 2024 Heart Rate 76.00 /min Nicholejan 20 10:14 :53 EDT 2024 Body temperature 97.80 [degF] Nicholejan 20 10:1 4:53 EDT 2024 Respiratory rate 18.00 /min Nicholejan 20 10:1 4:53 EDT 2024 Systolic Blood Pressure 144.00 mm[Hg] Nichole Mar 20 09:26:34 EDT 5 Diastolic Blood Pressure 76.00 mm[Hg] Nichole Mar 20 09:26:34 EDT 2024 Systolic Blood Pressure 144.00 mm[Hg] Nichole Mar 20 09:26:34 EDT 2024 Diastolic Blood Pressure 76.00 mm[Hg] Nichole Mar 20 09:26:34 EDT 2024 Heart Rate 76.00 /min Nichole Mar 20 09:26 :34 EDT 2024 Systolic Blood Pressure 150.00 mm[Hg] Sun 19 23:52:44 EDT 2024 Diastolic Blood Pressure 80.00 mm[Hg] Sun 19 23:52:44 EDT 2024 Pulse Oximetry 94.00 % Sun 19 23:52 :44 EDT 2024 Heart Rate 68.00 /min Sun 19 23:52 :44 EDT 2024 Body temperature 97.40 [degF] Sun 19 23:5 2:44 EDT 2024 Respiratory rate 18.00 /min SunFeb 11 23:5 2:44 EDT 2024 Systolic Blood Pressure 139.00 mm[Hg] Sun 19 09:10:21 EDT 2024 Diastolic Blood Pressure 74.00 mm[Hg] Sun 19 09:10:21 EDT 2024 Systolic Blood Pressure 139.00 mm[Hg] Sun 19 09:10:21 EDT 2024 Diastolic Blood Pressure 74.00 mm[Hg] Sun 19 09:10:21 EDT 2024 Systolic Blood Pressure 139.00 mm[Hg] Sun 19 09:10:21 EDT 2024 Diastolic Blood Pressure 74.00 mm[Hg] Sun 19 09:10:21 EDT 2024 Pulse Oximetry 91.00 % Sun 19 09:10 :21 EDT 2024 Body weight 201.40 [lb_av] Sun 19 09:10 :21 EDT 2024 Heart Rate 80.00 /min Sun 19 09:10 :21 EDT 2024 Heart Rate 80.00 /min Sun 19 09:10 :21 EDT 2024 Body temperature 98.00 [degF] Sun 19 09:1 0:21 EDT 2024 Respiratory rate 18.00 /min Sun 19 09:1 0:21 EDT 2024 Systolic Blood Pressure 125.00 mm[Hg] Sun 19 00:23:16 EDT 2024 Diastolic Blood Pressure 91.00 mm[Hg] Sun 19 00:23:16 EDT 2024 Pulse Oximetry 93.00 % SunFeb 11 00:23 :16 EDT 2024 Heart Rate 71.00 /min SunFeb 11 00:23 :16 EDT 2024 Body temperature 97.40 [degF] Sun 19 00:2 3:16 EDT 2024 Respiratory rate 18.00 /min Sun 19 00:2 3:16 EDT 2024 Systolic Blood Pressure 152.00 mm[Hg] Sun 18 09:13:34 EDT 2024 Diastolic Blood Pressure 83.00 mm[Hg] Sun 18 09:13:34 EDT 2024 Systolic Blood Pressure 152.00 mm[Hg] Sun 18 09:13:34 EDT 2024 Diastolic Blood Pressure 83.00 mm[Hg] Sun 18 09:13:34 EDT 2024 Systolic Blood Pressure 152.00 mm[Hg] Sun 18 09:13:34 EDT 2024 Diastolic Blood Pressure 83.00 mm[Hg] SunFeb 10 09:13:34 EDT 2024 Pulse Oximetry 93.00 % SunFeb 10 09:13 :34 EDT 2024 Heart Rate 78.00 /min SunFeb 10 09:13 :34 EDT 2024 Heart Rate 78.00 /min SunFeb 10 09:13 :34 EDT 2024 Body temperature 97.70 [degF] SunFeb 10 09:1 3:34 EDT 2024 Respiratory rate 18.00 /min SunFeb 10 09:1 3:34 EDT 2024 Systolic Blood Pressure 131.00 mm[Hg] Sun 18 00:25:20 EDT 2024 Diastolic Blood Pressure 73.00 mm[Hg] Sun 18 00:25:20 EDT 2024 Pulse Oximetry 93.00 % Sun 18 00:25 :20 EDT 2024 Heart Rate 73.00 /min Sun 18 00:25 :20 EDT 2024 Body temperature 96.80 [degF] Sun 18 00:2 5:20 EDT 2024 Respiratory rate 18.00 /min Sun 18 00:2 5:20 EDT 2024 Body weight 200.00 [lb_av] Sun 17 16:14 :29 EDT 2024 Systolic Blood Pressure 170.00 mm[Hg] SunFeb 09 11:06:38 EDT 2024 Diastolic Blood Pressure 88.00 mm[Hg] SunFeb 09 11:06:38 EDT 2024 Systolic Blood Pressure 170.00 mm[Hg] SunFeb 09 11:06:38 EDT 2024 Diastolic Blood Pressure 88.00 mm[Hg] SunFeb 09 11:06:38 EDT 2024 Pulse Oximetry 96.00 % SunFeb 09 11:02 :41 EDT 2024 Heart Rate 78.00 /min SunFeb 09 11:02 :41 EDT 2024 Heart Rate 78.00 /min SunFeb 09 11:02 :41 EDT 2024 Body temperature 97.40 [degF] SunFeb 09 11:0 2:41 EDT 2024 Respiratory rate 20.00 /min SunFeb 09 11:0 2:41 EDT 2024 Systolic Blood Pressure 144.00 mm[Hg] SunFeb 09 01:31:00 EDT 2024 Diastolic Blood Pressure 88.00 mm[Hg] SunFeb 09 01:31:00 EDT 2024 Pulse Oximetry 97.00 % SunFeb 09 01:31 :00 EDT 2024 Heart Rate 76.00 /min SunFeb 09 01:31 :00 EDT 2024 Body temperature 98.20 [degF] SunFeb 09 01:3 1:00 EDT 2024 Respiratory rate 18.00 /min SunFeb 09 01:3 1:00 EDT 2024 Systolic Blood Pressure 170.00 mm[Hg] SunFeb 08 13:53:00 EDT 2024 Diastolic Blood Pressure 102.00 mm[Hg] SunFeb 08 13:53:00 EDT 2024 Heart Rate 94.00 /min SunFeb 08 13:53 :00 EDT 2024 Body weight 200.80 [lb_av] SunFeb 08 13:53 :00 EDT 2024 Body temperature 97.20 [degF] SunFeb 08 13:5 3:00 EDT 2024 Respiratory rate 22.00 /min SunFeb 08 13:5 3:00 EDT 2024 Body Height 67.00 [in_i] SunFeb 08 13:53 :00 EDT 2024 Reason for Referral
--- OUTSIDE RECORDS SUMMARY | 2025-07-21 14:27 | XMS_ITS | Encounter Summary ---
Author Organization [facility] Healthcare Address [address] [place] [address] Care Team Providers Care Apparel Sales Associate Name Role Phone Mya Rankin MD Primary Care Provider Key Ingram RN Unavailable Jennifer Alcantara NP Primary Care Provider [phone] Tracy Yusuf RN Unavailable Encounter Details Date Type Department Care Team (Late st Contact Info) Description 05/11/2021 Telephone [facility] - Imaging [address] [place] [address] Transcribed Order, Provider Social History Tobacco Use Types Packs/Day Years Used Date Smoking Tobacco: Never Smokeless Tobacco: Never Alcohol Use Standard Drinks/Week Comments Yes 5 (1 standard drink = 0.6 oz pur e alcohol) PHQ-2 Answer Date Recorded PHQ-2 Total Score (If total score is 3 or more points, staff should administer the PHQ-9) 3 04/18/2021 Comments No Sex and Gender Information Value Date Recorded Sex Assigned at Not on file 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 Gender Identity Not on file Sexual Orientation Not on file documented as of this encounter Plan of Treatment Not on file documented as of this encounter Visit Diagnoses Not on filedocumented in this encounter Care Teams Apparel Sales Associate Relationship Specialty Start Date End Date Mya Rankin MD PCP - General 02/23/17 10/30/24 Jennifer Alcantara, T[facility] [address] [facility] [address] [place] [address] PCP - General Internal Medicine 10/31/24 Key Ingram RN [address] [place] [address] [address] [place] [address] Directory Clerk 08/01/21 08/23/21 Tracy Yusuf RN [address] [facility] [place] [address] Directory Clerk 02/25/25 03/03/25 documented as of this encounter
--- OUTSIDE RECORDS SUMMARY | 2025-07-21 14:27 | XMS_ITS | Encounter Summary ---
Author Organization [facility] Address [address] [place] [address] Phone Care Team Providers Care Sports Physical Therapist Name Role Phone Mya Rankin MD Primary Care Provider Key Ingram RN Unavailable [phone] Jennifer Alcantara NP Primary Care Provider [phone] Tracy Yusuf RN Unavailable Encounter Details Date Type Department Care Team (Late st Contact Info) Description 03/12/2018 Orders Only [facility] ProviderScooter MD [address] [place] [id number] Social History Tobacco Use Types Packs/Day Years Used Date Smoking Tobacco: Never Smokeless Tobacco: Never Alcohol Use Standard Drinks/Week Comments Yes 0 (1 standard drink = 0.6 oz pur e alcohol) Comments Unknown Sex and Gender Information Value Date Recorded Sex Assigned at Not on file 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 us Historical Provider LAB BLOOD ORDERABLES Abby l Result documented in this encounter Visit Diagnoses Not on filedocumented in this encounter Care Teams Sports Physical Therapist Relationship Specialty Start Date End Date Mya Rankin MD PCP - General 02/23/17 10/30/24 Jennifer Alcantara NP [address] [facility] [address] [address] PCP - General Internal Medicine 10/31/24 Key Ingram RN [address] [facility] [place], [place] [id number] Theater Manager 08/01/21 08/23/21 Tracy Yusuf RN [address] [place], [place] [id number] Theater Manager 02/25/25 03/03/25 documented as of this encounter
--- OUTSIDE RECORDS SUMMARY | 2025-07-21 14:27 | XMS_ITS | Patient Health Record ---
Author Organization [facility] [employer] Address [address] [place] [address] Care Team Providers Care Personal Computer Network Engineer Name Role Phone Chucho KELLER, Mya Primary Care Provider Vale Cramer Unavailable [phone] Alla Barry Unavailable [phone] Allergies Allergen (clinical drug ingredient) Drug/Non Drug Allergy documented on EMR Reaction Allergy Type Onset Date Status cephalexin Cephalexin Unknown Drug Allergy 02/11/2024 Acti ve ciprofloxacin Cipro Unknown Drug Allergy 02/11/2024 Ac tive erythromycin Erythromycin Base Unknown Drug Allergy 2023 Active Reason For Referral No Information Medications Medication SIG (Take, Route, Frequency, Duration) Notes Start Date End Date Status traZODone HCl 100 MG Tablet 1 tablet Oral bedtime; Duration: 90 days Active Venlafaxine HCl ER 150 MG Capsule Extended Release 24 Hour 1 capsule Oral Once a day; Duration: 90 days Active Atenolol 50 MG Tablet Oral 02/11/2024 Active Omeprazole 40 MG Capsule Delayed Release Oral; Duration: 90 Days Not-Taking Lisinopril 40 MG Tablet TAKE 1 TABLET BY MOUTH EVERY DAY Oral; Duration: 90 Days Active Atenolol 50 MG Tablet Oral; Duration: 90 Days Not-Taking Lisinopril 40 MG Tablet Oral; Duration: 90 Days Not-Taking Celecoxib 200 MG Capsule Oral; Duration: 30 Days Not-Taking Sertraline HCl 50 MG Tablet TAKE 1 TABLET BY MOUTH EVERY DAY FOR 90 DAYS; Duration: 90 Active Pravastatin Sodium 80 MG Tablet Oral; Duration: 90 Days Not-Taking Pravastatin Sodium 80 MG Tablet Oral; Duration: 90 Days Not-Taking Amoxicillin 875 MG Tablet Oral 02/11/2024 Not-Taking Venlafaxine HCl ER 150 MG Capsule Extended Release 24 Hour TAKE 1 CAPSULE BY MOUTH EVERY DAY FOR 90 DAYS; Duration: 90 appointment needed Active Sertraline HCl 100 MG Tablet 1 tablet Orally Once a day; Duration: 90 days d/c 50 mg dose Active QUEtiapine Fumarate 200 MG Tablet 1 tablet Oral at bedtime; Duration: 90 days d/c 150 mg dose Active Acetaminophen-Codei ne #3 300-30 MG Tablet Oral 02/11/2024 Not-Taking Celecoxib 200 MG Capsule TAKE 1 CAPSULE BY MOUTH 1-2 TIMES A DAY NEEDED FOR PAIN Oral; Duration: 30 Days Active Pravastatin Sodium 80 MG Tablet TAKE 1 TABLET BY MOUTH EVERY DAY Oral; Duration: 90 Days Not-Taking Omeprazole 40 MG Capsule Delayed Release TAKE 1 CAPSULE (40 MG TOTAL) BY MOUTH DAILY. Oral; Duration: 90 Days Active Venlafaxine HCl ER 37.5 MG Capsule Extended Release 24 Hour Oral 02/11/2024 Not-Taking Immunizations Vaccine Route Administration Date Status Comme nts Pfizer Biontech Covid-19 Vac cine 2nd dose Unknown 03/01/2021 Administered Pfizer-Biontech Covid-19 Vac cine 1st dose Unknown 02/07/2021 Administered Tdap Unknown 03/27/2022 Administered Social History Tobacco Use: Social History Observation Description Date Details (start date - stop date) Never Smoker NA - NA Sex Assigned At : Social History Observation Description Sex Assigned At Female Social History Miscellaneous: Social Info Question Answer Notes Advance Care Planning Are you your own decision-maker Yes Do you have Power of Director [employer] [facility] or [facility]? Yes Drug/Alcohol: Social Info Question Answer Notes AUDIT-C (Standard) Did you have a drink containing alcohol in the past year? Yes How often did you have six or more drinks on one occasion in the past year? Never (0 point) How many drinks did you have on a typical day when you were drinking in the past year? 1 or 2 drinks (0 point) How often did you have a drink containing alcohol in the past year? Daily or almost daily (4 points) Tobacco Use: Social Info Question Answer Notes Tobacco Control (Standard) Tobacco use: Nonsmoker Additional Details Category Social Info Options Details Migrated Social History Migrated Social History Alcohol Intake: Occasional 04/17/2023,Tobacco Years: Never smoker 04/17/2023 Section Notes: Do you or have you ever smok ed tobacco?: Never smokerHow much tobacco do you smoke?: NoneDo you or have you ever used any other forms of tobacco or nicotine?: NoDo you or have you ever used e-cigarettes or vape?: Never used electronic cigarettesWhat was the date of your most recent tobacco screening?: 02/11/2024Has tobacco cessation counseling been provided?: NoWhat is your level of alcohol consumption?: OccasionalHow many years have you consumed alcohol?: 45Do you use any illicit or recreational drugs?: NoHave you used IV drugs?: NoWhat is your level of caffeine consumption?: OccasionalEducation and OccupationWhat is the highest grade or level of school you have completed or the highest degree you have received?: Professional school degree (example: , YEHUDA, DVM, DEB)Are you currently in school?: NoAre you currently employed?: NoMarriage and SexualityWhat is your relationship status?: WidowedAre you sexually active?: NoHow many children do you have?: 2Home and EnvironmentAre there any guns present in your home?: NoLifestyleDo you use your seat belt or car seat routinely?: YesAdvance DirectiveDo you have an advance directive?: YesDo you have a medical power of bankruptcy attorney?: YesPublic Health and TravelHave you been to an area known to be high risk for COVID-19?: NoGender Identity and LGBTQ IdentityAssigned sex at : FemalePronouns: she/herSexual orientation: Straight or heterosexual Problems Problem Type SNOMED Code ICD Code Onset Dates Problem Status W/U Status Risk Notes Problem Mild recurrent major depression (47061807) Major depressive disorder, recurrent, mild (F33.0) 4 Active confirmed Problem Generalized anxiety disorder (20183681) Generalized anxiety disorder (F41.1) 4 Active confirmed Problem Primary insomnia (6912207) Primary insomnia (F51.01) 4 Active confirmed Problem Amnesia (75481557) Memory changes (R41.3) Active confirmed Vital Signs Heart Rate 91 /min 06/04/2025 Respiratory Rate 16 /min 06/04/2025 Height-cm 171.45 cm 06/04/2025 Blood pressure diastolic 82 mm Hg 06/04/2025 Weight-kg 81.65 kg 06/04/2025 Height 67.50 in 06/04/2025 Blood pressure systolic 117 mm Hg 06/04/2025 Weight 180 lbs 06/04/2025 BMI 27.77 kg/m2 06/04/2025 Encounters [facility]counter [facility] Date [facility] [place] [address] [facility] [address] [address] 09/02/2024 Vale Shaikh Major depressive disorder, recurrent, mild F33.0 ; Generalized anxiety disorder F41.1 ; Primary insomnia F51.01 and Memory changes R41.3 [place] [address] [facility] [address] [address] 01/15/2025 Vale Shaikh Major depressive disorder, recurrent, mild F33.0 ; Generalized anxiety disorder F41.1 ; Primary insomnia F51.01 and Memory changes R41.3 [facility] [place] [address] [facility] [address] [address] 06/04/2025 Vale Shaikh Major depressive disorder, recurrent, mild F33.0 ; Generalized anxiety disorder F41.1 ; Primary insomnia F51.01 and Memory changes R41.3 [place] [address] [facility] [address] [address] 04/07/2025 Vale Shaikh [place] [address] [facility] [address] [address] 01/12/2025 Vale Shaikh [place] [address] [address] 05/09/2025 Vale Shaikh [place] [address] [facility] [address] [address] 07/11/2025 Vale Shaikh Assessments Encounter Date Diagnosis (ICD Code) Assessment Notes Treatment Notes Treatment Clinical Notes Section Notes 09/02/2024 Major depressive disorder, recurrent, mild (ICD-10 - F33.0) 1. Mild recurrent major depression- Effexor 150 mg for depression and anxiety- educated on rx monitor B/P Seroquel 150 mg at bedtime SLUMS= 20 09/02/24- discuss results and medication options AIMS= 0 09/02/24 PCP and schedule to be seen 04/18 obtain labsmammogram and colonoscopy due 2023 educated on all medications, benefits, side effects and risk, and educated on depression, anxiety, and mood d/o and educated on compliance of medications, metabolic and movement d/o education appointment's, continue therapy discussion with patient about course of treatmentand patient instructions. education on serotonin syndrome therapy - has a therapist in [facility] need to schedule 2. Generalized anxiety disorder- Effexor 150 mg tablets dailymonitor b/p 3. Primary insomnia- Trazodone 100 mg at night -Melatonin 5-10 mg at night - reported not taking often educated on rx 4. Memory loss SLUMS= 20 DISCUSS SLUMS and results and medications options discuss and educated Namenda 5 mg twice a day (patient has chronic diarrhea - will avoid Aricept) SSRI/SNRI side effects discussed including but not limited to, gastric upset, nausea, vomiting, diarrhea and/or constipation, weight changes, sexual side effects including loss of libido, increased suicidal thoughts/behavior s in children and young adults, and serotonin syndrome. Patient educated on all medications including potential benefits, side effects, risks. Educated on proper dosing schedule and importance of compliance Second generation antipsychotics (SGAs) have metabolic syndrome issues with weight gain, increase in prolactin, increased waist circumference, increased lipids, and increased glucose. Thus routine monitoring of weight, metabolic labs, etc. is indicated. A general rank ordering of antipsychotics that have the greatest to the least risk of metabolic effects is olanzapine, quetiapine, risperidone, ziprasidone, and aripiprazole. However, weight gain can occur with all of these drugs and considerable variability exists among patients receiving the same drug regarding the risk of metabolic effects. Anti-psychotic agents not only increase the risk of metabolic disorder, they also increase the risk of CVA, akathisia, and movement disorders including EPS or tardive dyskinesia (more common with first generation antipsychotics) and more. Elderly- discussed risks, cognition, sedation, falls, metabolic, movement and atypical antipsychotics carry a black-box warning for increased risk of and cerebrovascular events in dementia. Medication Management and Follow-Up - Plan: - Schedule follow-up appointments every 1-3 months to monitor the patient's response to the medication regimen. - Reinforce the importance of avoiding recreational drug use due to potential neurotoxicity and interactions with prescribed medications. 09/02/2024 Generalized anxiety disorder (ICD-10 - F41.1) Learning About Generalized Anxiety Disorder material was published, Generalized Anxiety Disorder: Care Instructions material was published 1. Mild recurrent major depression- Effexor 150 mg for depression and anxiety- educated on rx monitor B/P Seroquel 150 mg at bedtime SLUMS= 20 09/02/24- discuss results and medication options AIMS= 0 09/02/24 PCP and schedule to be seen 04/18 obtain labsmammogram and colonoscopy due 2023 educated on all medications, benefits, side effects and risk, and educated on depression, anxiety, and mood d/o and educated on compliance of medications, metabolic and movement d/o education appointment's, continue therapy discussion with patient about course of treatmentand patient instructions. education on serotonin syndrome therapy - has a therapist in [facility] need to schedule 2. Generalized anxiety disorder- Effexor 150 mg tablets dailymonitor b/p 3. Primary insomnia- Trazodone 100 mg at night -Melatonin 5-10 mg at night - reported not taking often educated on rx 4. Memory loss SLUMS= 20 DISCUSS SLUMS and results and medications options discuss and educated Namenda 5 mg twice a day (patient has chronic diarrhea - will avoid Aricept) SSRI/SNRI side effects discussed including but not limited to, gastric upset, nausea, vomiting, diarrhea and/or constipation, weight changes, sexual side effects including loss of libido, increased suicidal thoughts/behavior s in children and young adults, and serotonin syndrome. Patient educated on all medications including potential benefits, side effects, risks. Educated on proper dosing schedule and importance of compliance Second generation antipsychotics (SGAs) have metabolic syndrome issues with weight gain, increase in prolactin, increased waist circumference, increased lipids, and increased glucose. Thus routine monitoring of weight, metabolic labs, etc. is indicated. A general rank ordering of antipsychotics that have the greatest to the least risk of metabolic effects is olanzapine, quetiapine, risperidone, ziprasidone, and aripiprazole. However, weight gain can occur with all of these drugs and considerable variability exists among patients receiving the same drug regarding the risk of metabolic effects. Anti-psychotic agents not only increase the risk of metabolic disorder, they also increase the risk of CVA, akathisia, and movement disorders including EPS or tardive dyskinesia (more common with first generation antipsychotics) and more. Elderly- discussed risks, cognition, sedation, falls, metabolic, movement and atypical antipsychotics carry a black-box warning for increased risk of and cerebrovascular events in dementia. Medication Management and Follow-Up - Plan: - Schedule follow-up appointments every 1-3 months to monitor the patient's response to the medication regimen. - Reinforce the importance of avoiding recreational drug use due to potential neurotoxicity and interactions with prescribed medications. 01/15/2025 Major depressive disorder, recurrent, mild (ICD-10 - F33.0) Preventing Depression From Coming Back: Care Instructions material was published, Learning About Depression material was published, Depression Treatment: Care Instructions material was published, Seasonal Affective Disorder: Care Instructions material was published, Learning About Depression Screening material was published 1. major depression- having increase depression, avoiding leaving house, and anxiety ADD Sertraline 50 mg daily educated on all rx Effexor 150 mg for depression and anxiety- educated on rx monitor B/P Seroquel 150 mg at bedtime SLUMS= 20 09/02/24- discuss results and medication options AIMS= 0 09/02/24 PCP and labs mammogram and colonoscopy due 2023 educated on all medications, benefits, side effects and risk, and educated on depression, anxiety, and mood d/o and educated on compliance of medications, metabolic and movement d/o education appointment's, continue therapy discussion with patient about course of treatmentand patient instructions. education on serotonin syndrome therapy - has a therapist in [facility] need to schedule 2. Generalized anxiety disorder- Effexor 150 mg tablets daily monitor b/p 3. Primary insomnia- Trazodone 100 mg at night -Melatonin 5-10 mg at night - reported not taking often educated on rx 4. Memory loss SLUMS= 20 DISCUSS SLUMS and results and medications options patient stopped Namenda 5 mg twice a day- r/t cost (patient has chronic diarrhea - will avoid Aricept) SSRI/SNRI side effects discussed including but not limited to, gastric upset, nausea, vomiting, diarrhea and/or constipation, weight changes, sexual side effects including loss of libido, increased suicidal thoughts/behavior s in children and young adults, and serotonin syndrome. Patient educated on all medications including potential benefits, side effects, risks. Educated on proper dosing schedule and importance of compliance Second generation antipsychotics (SGAs) have metabolic syndrome issues with weight gain, increase in prolactin, increased waist circumference, increased lipids, and increased glucose. Thus routine monitoring of weight, metabolic labs, etc. is indicated. A general rank ordering of antipsychotics that have the greatest to the least risk of metabolic effects is olanzapine, quetiapine, risperidone, ziprasidone, and aripiprazole. However, weight gain can occur with all of these drugs and considerable variability exists among patients receiving the same drug regarding the risk of metabolic effects. Anti-psychotic agents not only increase the risk of metabolic disorder, they also increase the risk of CVA, akathisia, and movement disorders including EPS or tardive dyskinesia (more common with first generation antipsychotics) and more. Elderly- discussed risks, cognition, sedation, falls, metabolic, movement and atypical antipsychotics carry a black-box warning for increased risk of and cerebrovascular events in dementia. Medication Management and Follow-Up - Plan: - Schedule follow-up appointments every 1-3 months to monitor the patient's response to the medication regimen. - Reinforce the importance of avoiding recreational drug use due to potential neurotoxicity and interactions with prescribed medications. 06/04/2025 Major depressive disorder, recurrent, mild (ICD-10 - F33.0) Preventing Depression From Coming Back: Care Instructions material was published, Learning About Depression material was published, Depression Treatment: Care Instructions material was published, Seasonal Affective Disorder: Care Instructions material was published, Learning About Depression Screening material was published 1. major depression- having increase depression, avoiding leaving house, and anxiety IncreaseSertralin e 100 mg daily educated on all rx refer to therapy [facility] Effexor 150 mg for depression and anxiety- educated on rx monitor B/P Increase Seroquel 200 mg at bedtime for depression, anxiety and also help sleep SLUMS= 20 09/02/24- discuss results and medication options AIMS= 0 09/02/24 PCP and labs mammogram and colonoscopy 2023 educated on all medications, benefits, side effects and risk, and educated on depression, anxiety, and mood d/o and educated on compliance of medications, metabolic and movement d/o education appointment's, continue therapy discussion with patient about course of treatmentand patient instructions. education on serotonin syndrome therapy - has a therapist in [facility] need to schedule 2. Generalized anxiety disorder- Effexor 150 mg tablets daily monitor b/p 3. Primary insomnia- Trazodone 100 mg at night -Melatonin 5-10 mg at night - reported not taking often educated on rx 4. Memory loss SLUMS= 20 DISCUSS SLUMS and results and medications options patient stopped Namenda 5 mg twice a day- r/t cost (patient has chronic diarrhea - will avoid Aricept) SSRI/SNRI side effects discussed including but not limited to, gastric upset, nausea, vomiting, diarrhea and/or constipation, weight changes, sexual side effects including loss of libido, increased suicidal thoughts/behavior s in children and young adults, and serotonin syndrome. Patient educated on all medications including potential benefits, side effects, risks. Educated on proper dosing schedule and importance of compliance Second generation antipsychotics (SGAs) have metabolic syndrome issues with weight gain, increase in prolactin, increased waist circumference, increased lipids, and increased glucose. Thus routine monitoring of weight, metabolic labs, etc. is indicated. A general rank ordering of antipsychotics that have the greatest to the least risk of metabolic effects is olanzapine, quetiapine, risperidone, ziprasidone, and aripiprazole. However, weight gain can occur with all of these drugs and considerable variability exists among patients receiving the same drug regarding the risk of metabolic effects. Anti-psychotic agents not only increase the risk of metabolic disorder, they also increase the risk of CVA, akathisia, and movement disorders including EPS or tardive dyskinesia (more common with first generation antipsychotics) and more. Elderly- discussed risks, cognition, sedation, falls, metabolic, movement and atypical antipsychotics carry a black-box warning for increased risk of and cerebrovascular events in dementia. Medication Management and Follow-Up - Plan: - Schedule follow-up appointments every 1-3 months to monitor the patient's response to the medication regimen. - Reinforce the importance of avoiding recreational drug use due to potential neurotoxicity and interactions with prescribed medications. 06/04/2025 Generalized anxiety disorder (ICD-10 - F41.1) Learning About Generalized Anxiety Disorder material was published, Generalized Anxiety Disorder: Care Instructions material was published, Learning About Generalized Anxiety Disorder material was published, Generalized Anxiety Disorder: Care Instructions material was published, Learning About Anxiety Disorders material was published 1. major depression- having increase depression, avoiding leaving house, and anxiety IncreaseSertralin e 100 mg daily educated on all rx refer to therapy [facility] Effexor 150 mg for depression and anxiety- educated on rx monitor B/P Increase Seroquel 200 mg at bedtime for depression, anxiety and also help sleep SLUMS= 20 09/02/24- discuss results and medication options AIMS= 0 09/02/24 PCP and labs mammogram and colonoscopy 2023 educated on all medications, benefits, side effects and risk, and educated on depression, anxiety, and mood d/o and educated on compliance of medications, metabolic and movement d/o education appointment's, continue therapy discussion with patient about course of treatmentand patient instructions. education on serotonin syndrome therapy - has a therapist in [facility] need to schedule 2. Generalized anxiety disorder- Effexor 150 mg tablets daily monitor b/p 3. Primary insomnia- Trazodone 100 mg at night -Melatonin 5-10 mg at night - reported not taking often educated on rx 4. Memory loss SLUMS= 20 DISCUSS SLUMS and results and medications options patient stopped Namenda 5 mg twice a day- r/t cost (patient has chronic diarrhea - will avoid Aricept) SSRI/SNRI side effects discussed including but not limited to, gastric upset, nausea, vomiting, diarrhea and/or constipation, weight changes, sexual side effects including loss of libido, increased suicidal thoughts/behavior s in children and young adults, and serotonin syndrome. Patient educated on all medications including potential benefits, side effects, risks. Educated on proper dosing schedule and importance of compliance Second generation antipsychotics (SGAs) have metabolic syndrome issues with weight gain, increase in prolactin, increased waist circumference, increased lipids, and increased glucose. Thus routine monitoring of weight, metabolic labs, etc. is indicated. A general rank ordering of antipsychotics that have the greatest to the least risk of metabolic effects is olanzapine, quetiapine, risperidone, ziprasidone, and aripiprazole. However, weight gain can occur with all of these drugs and considerable variability exists among patients receiving the same drug regarding the risk of metabolic effects. Anti-psychotic agents not only increase the risk of metabolic disorder, they also increase the risk of CVA, akathisia, and movement disorders including EPS or tardive dyskinesia (more common with first generation antipsychotics) and more. Elderly- discussed risks, cognition, sedation, falls, metabolic, movement and atypical antipsychotics carry a black-box warning for increased risk of and cerebrovascular events in dementia. Medication Management and Follow-Up - Plan: - Schedule follow-up appointments every 1-3 months to monitor the patient's response to the medication regimen. - Reinforce the importance of avoiding recreational drug use due to potential neurotoxicity and interactions with prescribed medications. 01/15/2025 Generalized anxiety disorder (ICD-10 - F41.1) Learning About Generalized Anxiety Disorder material was published, Generalized Anxiety Disorder: Care Instructions material was published, Learning About Generalized Anxiety Disorder material was published, Generalized Anxiety Disorder: Care Instructions material was published, Learning About Anxiety Disorders material was published 1. major depression- having increase depression, avoiding leaving house, and anxiety ADD Sertraline 50 mg daily educated on all rx Effexor 150 mg for depression and anxiety- educated on rx monitor B/P Seroquel 150 mg at bedtime SLUMS= 20 09/02/24- discuss results and medication options AIMS= 0 09/02/24 PCP and labs mammogram and colonoscopy due 2023 educated on all medications, benefits, side effects and risk, and educated on depression, anxiety, and mood d/o and educated on compliance of medications, metabolic and movement d/o education appointment's, continue therapy discussion with patient about course of treatmentand patient instructions. education on serotonin syndrome therapy - has a therapist in [facility] need to schedule 2. Generalized anxiety disorder- Effexor 150 mg tablets daily monitor b/p 3. Primary insomnia- Trazodone 100 mg at night -Melatonin 5-10 mg at night - reported not taking often educated on rx 4. Memory loss SLUMS= 20 DISCUSS SLUMS and results and medications options patient stopped Namenda 5 mg twice a day- r/t cost (patient has chronic diarrhea - will avoid Aricept) SSRI/SNRI side effects discussed including but not limited to, gastric upset, nausea, vomiting, diarrhea and/or constipation, weight changes, sexual side effects including loss of libido, increased suicidal thoughts/behavior s in children and young adults, and serotonin syndrome. Patient educated on all medications including potential benefits, side effects, risks. Educated on proper dosing schedule and importance of compliance Second generation antipsychotics (SGAs) have metabolic syndrome issues with weight gain, increase in prolactin, increased waist circumference, increased lipids, and increased glucose. Thus routine monitoring of weight, metabolic labs, etc. is indicated. A general rank ordering of antipsychotics that have the greatest to the least risk of metabolic effects is olanzapine, quetiapine, risperidone, ziprasidone, and aripiprazole. However, weight gain can occur with all of these drugs and considerable variability exists among patients receiving the same drug regarding the risk of metabolic effects. Anti-psychotic agents not only increase the risk of metabolic disorder, they also increase the risk of CVA, akathisia, and movement disorders including EPS or tardive dyskinesia (more common with first generation antipsychotics) and more. Elderly- discussed risks, cognition, sedation, falls, metabolic, movement and atypical antipsychotics carry a black-box warning for increased risk of and cerebrovascular events in dementia. Medication Management and Follow-Up - Plan: - Schedule follow-up appointments every 1-3 months to monitor the patient's response to the medication regimen. - Reinforce the importance of avoiding recreational drug use due to potential neurotoxicity and interactions with prescribed medications. 09/02/2024 Primary insomnia (ICD-10 - F51.01) Insomnia: Care Instructions material was published 1. Mild recurrent major depression- Effexor 150 mg for depression and anxiety- educated on rx monitor B/P Seroquel 150 mg at bedtime SLUMS= 20 09/02/24- discuss results and medication options AIMS= 0 09/02/24 PCP and schedule to be seen 04/18 obtain labsmammogram and colonoscopy due 2023 educated on all medications, benefits, side effects and risk, and educated on depression, anxiety, and mood d/o and educated on compliance of medications, metabolic and movement d/o education appointment's, continue therapy discussion with patient about course of treatmentand patient instructions. education on serotonin syndrome therapy - has a therapist in [facility] need to schedule 2. Generalized anxiety disorder- Effexor 150 mg tablets dailymonitor b/p 3. Primary insomnia- Trazodone 100 mg at night -Melatonin 5-10 mg at night - reported not taking often educated on rx 4. Memory loss SLUMS= 20 DISCUSS SLUMS and results and medications options discuss and educated Namenda 5 mg twice a day (patient has chronic diarrhea - will avoid Aricept) SSRI/SNRI side effects discussed including but not limited to, gastric upset, nausea, vomiting, diarrhea and/or constipation, weight changes, sexual side effects including loss of libido, increased suicidal thoughts/behavior s in children and young adults, and serotonin syndrome. Patient educated on all medications including potential benefits, side effects, risks. Educated on proper dosing schedule and importance of compliance Second generation antipsychotics (SGAs) have metabolic syndrome issues with weight gain, increase in prolactin, increased waist circumference, increased lipids, and increased glucose. Thus routine monitoring of weight, metabolic labs, etc. is indicated. A general rank ordering of antipsychotics that have the greatest to the least risk of metabolic effects is olanzapine, quetiapine, risperidone, ziprasidone, and aripiprazole. However, weight gain can occur with all of these drugs and considerable variability exists among patients receiving the same drug regarding the risk of metabolic effects. Anti-psychotic agents not only increase the risk of metabolic disorder, they also increase the risk of CVA, akathisia, and movement disorders including EPS or tardive dyskinesia (more common with first generation antipsychotics) and more. Elderly- discussed risks, cognition, sedation, falls, metabolic, movement and atypical antipsychotics carry a black-box warning for increased risk of and cerebrovascular events in dementia. Medication Management and Follow-Up - Plan: - Schedule follow-up appointments every 1-3 months to monitor the patient's response to the medication regimen. - Reinforce the importance of avoiding recreational drug use due to potential neurotoxicity and interactions with prescribed medications. 09/02/2024 Memory changes (ICD-10 - R41.3) 1. Mild recurrent major depression- Effexor 150 mg for depression and anxiety- educated on rx monitor B/P Seroquel 150 mg at bedtime SLUMS= 20 09/02/24- discuss results and medication options AIMS= 0 09/02/24 PCP and schedule to be seen 04/18 obtain labsmammogram and colonoscopy due 2023 educated on all medications, benefits, side effects and risk, and educated on depression, anxiety, and mood d/o and educated on compliance of medications, metabolic and movement d/o education appointment's, continue therapy discussion with patient about course of treatmentand patient instructions. education on serotonin syndrome therapy - has a therapist in [facility] need to schedule 2. Generalized anxiety disorder- Effexor 150 mg tablets dailymonitor b/p 3. Primary insomnia- Trazodone 100 mg at night -Melatonin 5-10 mg at night - reported not taking often educated on rx 4. Memory loss SLUMS= 20 DISCUSS SLUMS and results and medications options discuss and educated Namenda 5 mg twice a day (patient has chronic diarrhea - will avoid Aricept) SSRI/SNRI side effects discussed including but not limited to, gastric upset, nausea, vomiting, diarrhea and/or constipation, weight changes, sexual side effects including loss of libido, increased suicidal thoughts/behavior s in children and young adults, and serotonin syndrome. Patient educated on all medications including potential benefits, side effects, risks. Educated on proper dosing schedule and importance of compliance Second generation antipsychotics (SGAs) have metabolic syndrome issues with weight gain, increase in prolactin, increased waist circumference, increased lipids, and increased glucose. Thus routine monitoring of weight, metabolic labs, etc. is indicated. A general rank ordering of antipsychotics that have the greatest to the least risk of metabolic effects is olanzapine, quetiapine, risperidone, ziprasidone, and aripiprazole. However, weight gain can occur with all of these drugs and considerable variability exists among patients receiving the same drug regarding the risk of metabolic effects. Anti-psychotic agents not only increase the risk of metabolic disorder, they also increase the risk of CVA, akathisia, and movement disorders including EPS or tardive dyskinesia (more common with first generation antipsychotics) and more. Elderly- discussed risks, cognition, sedation, falls, metabolic, movement and atypical antipsychotics carry a black-box warning for increased risk of and cerebrovascular events in dementia. Medication Management and Follow-Up - Plan: - Schedule follow-up appointments every 1-3 months to monitor the patient's response to the medication regimen. - Reinforce the importance of avoiding recreational drug use due to potential neurotoxicity and interactions with prescribed medications. 01/15/2025 Primary insomnia (ICD-10 - F51.01) Insomnia: Care Instructions material was published, Insomnia: Care Instructions material was published 1. major depression- having increase depression, avoiding leaving house, and anxiety ADD Sertraline 50 mg daily educated on all rx Effexor 150 mg for depression and anxiety- educated on rx monitor B/P Seroquel 150 mg at bedtime SLUMS= 20 09/02/24- discuss results and medication options AIMS= 0 09/02/24 PCP and labs mammogram and colonoscopy due 2023 educated on all medications, benefits, side effects and risk, and educated on depression, anxiety, and mood d/o and educated on compliance of medications, metabolic and movement d/o education appointment's, continue therapy discussion with patient about course of treatmentand patient instructions. education on serotonin syndrome therapy - has a therapist in [facility] need to schedule 2. Generalized anxiety disorder- Effexor 150 mg tablets daily monitor b/p 3. Primary insomnia- Trazodone 100 mg at night -Melatonin 5-10 mg at night - reported not taking often educated on rx 4. Memory loss SLUMS= 20 DISCUSS SLUMS and results and medications options patient stopped Namenda 5 mg twice a day- r/t cost (patient has chronic diarrhea - will avoid Aricept) SSRI/SNRI side effects discussed including but not limited to, gastric upset, nausea, vomiting, diarrhea and/or constipation, weight changes, sexual side effects including loss of libido, increased suicidal thoughts/behavior s in children and young adults, and serotonin syndrome. Patient educated on all medications including potential benefits, side effects, risks. Educated on proper dosing schedule and importance of compliance Second generation antipsychotics (SGAs) have metabolic syndrome issues with weight gain, increase in prolactin, increased waist circumference, increased lipids, and increased glucose. Thus routine monitoring of weight, metabolic labs, etc. is indicated. A general rank ordering of antipsychotics that have the greatest to the least risk of metabolic effects is olanzapine, quetiapine, risperidone, ziprasidone, and aripiprazole. However, weight gain can occur with all of these drugs and considerable variability exists among patients receiving the same drug regarding the risk of metabolic effects. Anti-psychotic agents not only increase the risk of metabolic disorder, they also increase the risk of CVA, akathisia, and movement disorders including EPS or tardive dyskinesia (more common with first generation antipsychotics) and more. Elderly- discussed risks, cognition, sedation, falls, metabolic, movement and atypical antipsychotics carry a black-box warning for increased risk of and cerebrovascular events in dementia. Medication Management and Follow-Up - Plan: - Schedule follow-up appointments every 1-3 months to monitor the patient's response to the medication regimen. - Reinforce the importance of avoiding recreational drug use due to potential neurotoxicity and interactions with prescribed medications. 06/04/2025 Primary insomnia (ICD-10 - F51.01) Insomnia: Care Instructions material was published, Insomnia: Care Instructions material was published 1. major depression- having increase depression, avoiding leaving house, and anxiety IncreaseSertralin e 100 mg daily educated on all rx refer to therapy [facility] Effexor 150 mg for depression and anxiety- educated on rx monitor B/P Increase Seroquel 200 mg at bedtime for depression, anxiety and also help sleep SLUMS= 20 09/02/24- discuss results and medication options AIMS= 0 09/02/24 PCP and labs mammogram and colonoscopy 2023 educated on all medications, benefits, side effects and risk, and educated on depression, anxiety, and mood d/o and educated on compliance of medications, metabolic and movement d/o education appointment's, continue therapy discussion with patient about course of treatmentand patient instructions. education on serotonin syndrome therapy - has a therapist in [facility] need to schedule 2. Generalized anxiety disorder- Effexor 150 mg tablets daily monitor b/p 3. Primary insomnia- Trazodone 100 mg at night -Melatonin 5-10 mg at night - reported not taking often educated on rx 4. Memory loss SLUMS= 20 DISCUSS SLUMS and results and medications options patient stopped Namenda 5 mg twice a day- r/t cost (patient has chronic diarrhea - will avoid Aricept) SSRI/SNRI side effects discussed including but not limited to, gastric upset, nausea, vomiting, diarrhea and/or constipation, weight changes, sexual side effects including loss of libido, increased suicidal thoughts/behavior s in children and young adults, and serotonin syndrome. Patient educated on all medications including potential benefits, side effects, risks. Educated on proper dosing schedule and importance of compliance Second generation antipsychotics (SGAs) have metabolic syndrome issues with weight gain, increase in prolactin, increased waist circumference, increased lipids, and increased glucose. Thus routine monitoring of weight, metabolic labs, etc. is indicated. A general rank ordering of antipsychotics that have the greatest to the least risk of metabolic effects is olanzapine, quetiapine, risperidone, ziprasidone, and aripiprazole. However, weight gain can occur with all of these drugs and considerable variability exists among patients receiving the same drug regarding the risk of metabolic effects. Anti-psychotic agents not only increase the risk of metabolic disorder, they also increase the risk of CVA, akathisia, and movement disorders including EPS or tardive dyskinesia (more common with first generation antipsychotics) and more. Elderly- discussed risks, cognition, sedation, falls, metabolic, movement and atypical antipsychotics carry a black-box warning for increased risk of and cerebrovascular events in dementia. Medication Management and Follow-Up - Plan: - Schedule follow-up appointments every 1-3 months to monitor the patient's response to the medication regimen. - Reinforce the importance of avoiding recreational drug use due to potential neurotoxicity and interactions with prescribed medications. 06/04/2025 Memory changes (ICD-10 - R41.3) 1. major depression- having increase depression, avoiding leaving house, and anxiety IncreaseSertralin e 100 mg daily educated on all rx refer to therapy [facility] Effexor 150 mg for depression and anxiety- educated on rx monitor B/P Increase Seroquel 200 mg at bedtime for depression, anxiety and also help sleep SLUMS= 20 09/02/24- discuss results and medication options AIMS= 0 09/02/24 PCP and labs mammogram and colonoscopy 2023 educated on all medications, benefits, side effects and risk, and educated on depression, anxiety, and mood d/o and educated on compliance of medications, metabolic and movement d/o education appointment's, continue therapy discussion with patient about course of treatmentand patient instructions. education on serotonin syndrome therapy - has a therapist in [facility] need to schedule 2. Generalized anxiety disorder- Effexor 150 mg tablets daily monitor b/p 3. Primary insomnia- Trazodone 100 mg at night -Melatonin 5-10 mg at night - reported not taking often educated on rx 4. Memory loss SLUMS= 20 DISCUSS SLUMS and results and medications options patient stopped Namenda 5 mg twice a day- r/t cost (patient has chronic diarrhea - will avoid Aricept) SSRI/SNRI side effects discussed including but not limited to, gastric upset, nausea, vomiting, diarrhea and/or constipation, weight changes, sexual side effects including loss of libido, increased suicidal thoughts/behavior s in children and young adults, and serotonin syndrome. Patient educated on all medications including potential benefits, side effects, risks. Educated on proper dosing schedule and importance of compliance Second generation antipsychotics (SGAs) have metabolic syndrome issues with weight gain, increase in prolactin, increased waist circumference, increased lipids, and increased glucose. Thus routine monitoring of weight, metabolic labs, etc. is indicated. A general rank ordering of antipsychotics that have the greatest to the least risk of metabolic effects is olanzapine, quetiapine, risperidone, ziprasidone, and aripiprazole. However, weight gain can occur with all of these drugs and considerable variability exists among patients receiving the same drug regarding the risk of metabolic effects. Anti-psychotic agents not only increase the risk of metabolic disorder, they also increase the risk of CVA, akathisia, and movement disorders including EPS or tardive dyskinesia (more common with first generation antipsychotics) and more. Elderly- discussed risks, cognition, sedation, falls, metabolic, movement and atypical antipsychotics carry a black-box warning for increased risk of and cerebrovascular events in dementia. Medication Management and Follow-Up - Plan: - Schedule follow-up appointments every 1-3 months to monitor the patient's response to the medication regimen. - Reinforce the importance of avoiding recreational drug use due to potential neurotoxicity and interactions with prescribed medications. 01/15/2025 Memory changes (ICD-10 - R41.3) 1. major depression- having increase depression, avoiding leaving house, and anxiety ADD Sertraline 50 mg daily educated on all rx Effexor 150 mg for depression and anxiety- educated on rx monitor B/P Seroquel 150 mg at bedtime SLUMS= 20 09/02/24- discuss results and medication options AIMS= 0 09/02/24 PCP and labs mammogram and colonoscopy due 2023 educated on all medications, benefits, side effects and risk, and educated on depression, anxiety, and mood d/o and educated on compliance of medications, metabolic and movement d/o education appointment's, continue therapy discussion with patient about course of treatmentand patient instructions. education on serotonin syndrome therapy - has a therapist in [facility] need to schedule 2. Generalized anxiety disorder- Effexor 150 mg tablets daily monitor b/p 3. Primary insomnia- Trazodone 100 mg at night -Melatonin 5-10 mg at night - reported not taking often educated on rx 4. Memory loss SLUMS= 20 DISCUSS SLUMS and results and medications options patient stopped Namenda 5 mg twice a day- r/t cost (patient has chronic diarrhea - will avoid Aricept) SSRI/SNRI side effects discussed including but not limited to, gastric upset, nausea, vomiting, diarrhea and/or constipation, weight changes, sexual side effects including loss of libido, increased suicidal thoughts/behavior s in children and young adults, and serotonin syndrome. Patient educated on all medications including potential benefits, side effects, risks. Educated on proper dosing schedule and importance of compliance Second generation antipsychotics (SGAs) have metabolic syndrome issues with weight gain, increase in prolactin, increased waist circumference, increased lipids, and increased glucose. Thus routine monitoring of weight, metabolic labs, etc. is indicated. A general rank ordering of antipsychotics that have the greatest to the least risk of metabolic effects is olanzapine, quetiapine, risperidone, ziprasidone, and aripiprazole. However, weight gain can occur with all of these drugs and considerable variability exists among patients receiving the same drug regarding the risk of metabolic effects. Anti-psychotic agents not only increase the risk of metabolic disorder, they also increase the risk of CVA, akathisia, and movement disorders including EPS or tardive dyskinesia (more common with first generation antipsychotics) and more. Elderly- discussed risks, cognition, sedation, falls, metabolic, movement and atypical antipsychotics carry a black-box warning for increased risk of and cerebrovascular events in dementia. Medication Management and Follow-Up - Plan: - Schedule follow-up appointments every 1-3 months to monitor the patient's response to the medication regimen. - Reinforce the importance of avoiding recreational drug use due to potential neurotoxicity and interactions with prescribed medications. 09/02/2024 Other referral to the local chapter or national office of the Alzheimer[employer] ( ; http://www.alz.or g), the Alzheimer's [facility] ([facility]) ( ; http://www.[place].gov/Alzheimers/ ), , Memantine Oral Tablet (MEMANTINE - ORAL) material was published 1. Mild recurrent major depression- Effexor 150 mg for depression and anxiety- educated on rx monitor B/P Seroquel 150 mg at bedtime SLUMS= 20 09/02/24- discuss results and medication options AIMS= 0 09/02/24 PCP and schedule to be seen 04/18 obtain labsmammogram and colonoscopy due 2023 educated on all medications, benefits, side effects and risk, and educated on depression, anxiety, and mood d/o and educated on compliance of medications, metabolic and movement d/o education appointment's, continue therapy discussion with patient about course of treatmentand patient instructions. education on serotonin syndrome therapy - has a therapist in [facility] need to schedule 2. Generalized anxiety disorder- Effexor 150 mg tablets dailymonitor b/p 3. Primary insomnia- Trazodone 100 mg at night -Melatonin 5-10 mg at night - reported not taking often educated on rx 4. Memory loss SLUMS= 20 DISCUSS SLUMS and results and medications options discuss and educated Namenda 5 mg twice a day (patient has chronic diarrhea - will avoid Aricept) SSRI/SNRI side effects discussed including but not limited to, gastric upset, nausea, vomiting, diarrhea and/or constipation, weight changes, sexual side effects including loss of libido, increased suicidal thoughts/behavior s in children and young adults, and serotonin syndrome. Patient educated on all medications including potential benefits, side effects, risks. Educated on proper dosing schedule and importance of compliance Second generation antipsychotics (SGAs) have metabolic syndrome issues with weight gain, increase in prolactin, increased waist circumference, increased lipids, and increased glucose. Thus routine monitoring of weight, metabolic labs, etc. is indicated. A general rank ordering of antipsychotics that have the greatest to the least risk of metabolic effects is olanzapine, quetiapine, risperidone, ziprasidone, and aripiprazole. However, weight gain can occur with all of these drugs and considerable variability exists among patients receiving the same drug regarding the risk of metabolic effects. Anti-psychotic agents not only increase the risk of metabolic disorder, they also increase the risk of CVA, akathisia, and movement disorders including EPS or tardive dyskinesia (more common with first generation antipsychotics) and more. Elderly- discussed risks, cognition, sedation, falls, metabolic, movement and atypical antipsychotics carry a black-box warning for increased risk of and cerebrovascular events in dementia. Medication Management and Follow-Up - Plan: - Schedule follow-up appointments every 1-3 months to monitor the patient's response to the medication regimen. - Reinforce the importance of avoiding recreational drug use due to potential neurotoxicity and interactions with prescribed medications. 01/15/2025 Other Sertraline material was published 1. major depression- having increase depression, avoiding leaving house, and anxiety ADD Sertraline 50 mg daily educated on all rx Effexor 150 mg for depression and anxiety- educated on rx monitor B/P Seroquel 150 mg at bedtime SLUMS= 20 09/02/24- discuss results and medication options AIMS= 0 09/02/24 PCP and labs mammogram and colonoscopy due 2023 educated on all medications, benefits, side effects and risk, and educated on depression, anxiety, and mood d/o and educated on compliance of medications, metabolic and movement d/o education appointment's, continue therapy discussion with patient about course of treatmentand patient instructions. education on serotonin syndrome therapy - has a therapist in [facility] need to schedule 2. Generalized anxiety disorder- Effexor 150 mg tablets daily monitor b/p 3. Primary insomnia- Trazodone 100 mg at night -Melatonin 5-10 mg at night - reported not taking often educated on rx 4. Memory loss SLUMS= 20 DISCUSS SLUMS and results and medications options patient stopped Namenda 5 mg twice a day- r/t cost (patient has chronic diarrhea - will avoid Aricept) SSRI/SNRI side effects discussed including but not limited to, gastric upset, nausea, vomiting, diarrhea and/or constipation, weight changes, sexual side effects including loss of libido, increased suicidal thoughts/behavior s in children and young adults, and serotonin syndrome. Patient educated on all medications including potential benefits, side effects, risks. Educated on proper dosing schedule and importance of compliance Second generation antipsychotics (SGAs) have metabolic syndrome issues with weight gain, increase in prolactin, increased waist circumference, increased lipids, and increased glucose. Thus routine monitoring of weight, metabolic labs, etc. is indicated. A general rank ordering of antipsychotics that have the greatest to the least risk of metabolic effects is olanzapine, quetiapine, risperidone, ziprasidone, and aripiprazole. However, weight gain can occur with all of these drugs and considerable variability exists among patients receiving the same drug regarding the risk of metabolic effects. Anti-psychotic agents not only increase the risk of metabolic disorder, they also increase the risk of CVA, akathisia, and movement disorders including EPS or tardive dyskinesia (more common with first generation antipsychotics) and more. Elderly- discussed risks, cognition, sedation, falls, metabolic, movement and atypical antipsychotics carry a black-box warning for increased risk of and cerebrovascular events in dementia. Medication Management and Follow-Up - Plan: - Schedule follow-up appointments every 1-3 months to monitor the patient's response to the medication regimen. - Reinforce the importance of avoiding recreational drug use due to potential neurotoxicity and interactions with prescribed medications. 06/04/2025 Other Gait, Strength, and Balance Training ExercisesThis handout provides simple exercises to improve your gait, strength, and balance. Theseexercises can help prevent falls, improve mobility, and enhance overall function. Perform them in asafe space, use support if needed, and stop if you feel pain or dizziness.1. Gait Training Exercises- Walk in a straight line for 10-20 feet, heel-to-toe.- Step over small objects (cones or rolled towels).- Practice walking sideways and backwards.- Use a treadmill if available, under supervision.2. Balance Exercises- Stand on one foot for 10-30 seconds; switch legs.- Walk heel-to-toe in a straight line.- Use a balance board or cushion to challenge stability.- Practice rising from a chair without using your hands.3. Strength Training Exercises- [id number]: rise from a chair repeatedly.- Wall push-ups: stand at arm's length from a wall and push.- Step-ups on a low step or stairs.- Leg lifts while seated or lying down.Consult your primary care provider (PCP) before starting these exercises, especially if you havemedical conditions or difficulty performing them 1. major depression- having increase depression, avoiding leaving house, and anxiety IncreaseSertralin e 100 mg daily educated on all rx refer to therapy [facility] Effexor 150 mg for depression and anxiety- educated on rx monitor B/P Increase Seroquel 200 mg at bedtime for depression, anxiety and also help sleep SLUMS= 20 09/02/24- discuss results and medication options AIMS= 0 09/02/24 PCP and labs mammogram and colonoscopy 2023 educated on all medications, benefits, side effects and risk, and educated on depression, anxiety, and mood d/o and educated on compliance of medications, metabolic and movement d/o education appointment's, continue therapy discussion with patient about course of treatmentand patient instructions. education on serotonin syndrome therapy - has a therapist in [facility] need to schedule 2. Generalized anxiety disorder- Effexor 150 mg tablets daily monitor b/p 3. Primary insomnia- Trazodone 100 mg at night -Melatonin 5-10 mg at night - reported not taking often educated on rx 4. Memory loss SLUMS= 20 DISCUSS SLUMS and results and medications options patient stopped Namenda 5 mg twice a day- r/t cost (patient has chronic diarrhea - will avoid Aricept) SSRI/SNRI side effects discussed including but not limited to, gastric upset, nausea, vomiting, diarrhea and/or constipation, weight changes, sexual side effects including loss of libido, increased suicidal thoughts/behavior s in children and young adults, and serotonin syndrome. Patient educated on all medications including potential benefits, side effects, risks. Educated on proper dosing schedule and importance of compliance Second generation antipsychotics (SGAs) have metabolic syndrome issues with weight gain, increase in prolactin, increased waist circumference, increased lipids, and increased glucose. Thus routine monitoring of weight, metabolic labs, etc. is indicated. A general rank ordering of antipsychotics that have the greatest to the least risk of metabolic effects is olanzapine, quetiapine, risperidone, ziprasidone, and aripiprazole. However, weight gain can occur with all of these drugs and considerable variability exists among patients receiving the same drug regarding the risk of metabolic effects. Anti-psychotic agents not only increase the risk of metabolic disorder, they also increase the risk of CVA, akathisia, and movement disorders including EPS or tardive dyskinesia (more common with first generation antipsychotics) and more. Elderly- discussed risks, cognition, sedation, falls, metabolic, movement and atypical antipsychotics carry a black-box warning for increased risk of and cerebrovascular events in dementia. Medication Management and Follow-Up - Plan: - Schedule follow-up appointments every 1-3 months to monitor the patient's response to the medication regimen. - Reinforce the importance of avoiding recreational drug use due to potential neurotoxicity and interactions with prescribed medications. Plan Of Treatment No Information Insurance Providers Payer Name Payer Address Payer Phone Subscriber Number Group Number Insured Name Patient Relationship to Insured Coverage Start Date Coverage End Date [place] [address] [place] [address] [id number] WANDA ESTRADA Self - patient is the insured [place] [employer] [place] Medicare Supplement [address] [place] [phone] [id number] WANDA ESTRADA Self - patient is the insured Medical (General) History Medical History History ICD Code Problems: Generalized anxiety disorder Mild recurrent major depression Primary insomnia , Surgical History Surgery Date(Month/Year) Tonsilectomy/adenoids 11/26/1969 Breast surgery (64653) 11/26/1971 Hysterectomy (51457) 11/26/2008 Oophorectomy (30479) 11/26/2008 Any surgical history 03/15/2021 Cosmetic surgery 03/26/2006 Hysterectomy - 11/26/2008 Oo phorectomy - 11/26/2008 Cosmetic Surgery - 03/26/2006 Breast Surgery - 11/26/1971 tonsilectomy/adenoids - 11/26/1969
--- OUTSIDE RECORDS SUMMARY | 2025-07-21 14:27 | XMS_ITS | Clinical Summary ---
Author Organization [facility] Address [address] [place] [address] Care Team Providers Care Crusher Name Role Phone Jennifer Alcantara NP Primary Care Provider [phone] Allergies Active Allergy Reactions Criticality Noted Date Comments Cephalexin Hives Medium Ciprofloxacin Rash Medium Erythromycin Rash Medium 01/30/2022 Medications melatonin tablet Take 10 mg by mouth nightly as needed for sleep Active QUEtiapine (SEROquel) 50 mg tablet Take 3 tablets (150 mg total) by mouth nightly 2 Active multivitamin-mine rals-lutein (Multivitamin 50 Plus) tablet Take 1 tablet by mouth nightly 2 Active acetaminophen (TYLENOL) 500 mg tablet Take 1 tablet (500 mg total) by mouth every 6 (six) hours as needed (pain) Active traZODone (DESYREL) 100 mg tablet Take 1-2 tablets (100-200 mg total) by mouth nightly 1-2 tabs 4 Active venlafaxine XR (EFFEXOR-XR) 75 mg 24 hr capsule Take 1 capsule (75 mg total) by mouth daily Active TURMERIC ROOT-AYUSH ROOT EXT ORAL Take 1 tablet by mouth daily Active atenoloL (TENORMIN) 50 mg tabletIndications :Essential hypertension TAKE 1 TABLET BY MOUTH EVERY DAY 90 tablet 3 5 Active sertraline (ZOLOFT) 50 mg tablet Take 1 tablet (50 mg total) by mouth daily Active pravastatin (PRAVACHOL) 80 mg tablet TAKE 1 TABLET BY MOUTH EVERY DAY 90 tablet 5 Active omeprazole (PriLOSEC) 40 mg capsuleIndication s:Gastric ulcer without hemorrhage or perforation, unspecified chronicity TAKE 1 CAPSULE (40 MG TOTAL) BY MOUTH DAILY. 90 capsule 1 5 Active docusate sodium (COLACE) 100 mg capsule Take 1 capsule twice a day by oral route. Active senna 8.6 mg tablet Take 1 tablet twice a day by oral route. Active lisinopriL (PRINIVIL,ZESTRIL ) 40 mg tablet Take 1 tablet (40 mg total) by mouth daily 90 tablet 3 5 Active Active Problems Problem Noted Date Diagnosed Date CKD stage 3b, GFR 30-44 ml/min 03/02/2025 Fracture of unspecified part of left clavicle, initial encounter for closed fracture 02/07/2025 Assessment & Plan (02/07/2025 10:29 AM CDT): Oblique, mildly displaced fracture of the distal left clavicle noted on imaging after fall at home on 01/30. While in the ED she was evaluated by ortho who recommended NWB LUE and sling. Ortho attempted 02/02 to schedule for OP visit however patient declined to schedule at that time and noted she would call back if she needed an appointment. - Continue to use sling at all times per prior ortho recs - follow up with ortho outpatient advised Polypharmacy 02/05/2025 Assessment & Plan (02/07/2025 8:05 AM CDT): Superimposed on deconditioning. - will benefit from a referral to a gerontologist upon discharge to assist in weaning/tapering her outpatient medication list - patient ok with stopping her sertraline Assessment & Plan (02/05/2025 12:51 AM CDT): -superimposed on deconditioning -will benefit from a referral to a gerontologist upon discharge to assist in weaning/tapering her outpatient medication list Falls frequently 02/05/2025 Assessment & Plan (02/05/2025 5:28 PM CDT): - Failure to thrive in adult 02/04/2025 Assessment & Plan (02/07/2025 8:06 AM CDT): Multifactorial, see details as noted elsewhere - PT/OT rec SNF Assessment & Plan (02/05/2025 12:21 AM CDT): -multifactorial -PT/OT evals in AM Recurrent falls 02/04/2025 Assessment & Plan (02/07/2025 10:25 AM CDT): Likely due to a combination of age, deconditioning/chronic immobility and polypharmacy, chronic back pain. She reports mechanical and non-mechanical falls recently and mobility complicated by recent clavicular fracture. Presently lives alone. - cannot rule out an element of EtOH induced peripheral neuropathy - PT/OT recs SNF - pending 3 overnights for insurance, earliest d/c Sunday Assessment & Plan (02/05/2025 12:49 AM CDT): -likely a combination of age, deconditioning/chronic immobility and polypharmacy, chronic back pain -cannot rule out an element of EtOH induced peripheral neuropathy -complicated by recent clavicular fracture -lives alone -PT/OT evals in AM; may benefit from SNF placement for acute rehab vs. [facility] Gastric ulcer without hemorrhage or perforation 04/29/2024 Screening for colon cancer 03/28/2024 Dermatochalasis of both upper eyelids 08/20/2022 Ptosis of both eyelids 08/16/2022 Fatty liver 04/19/2022 Rupture of extensor tendons of right hand and wr ist 08/24/2021 Cat bite of forearm, right, subsequent encounter 07/26/2021 Assessment & Plan (08/16/2021 6:55 PM CDT): Ms. Alexis is a 71 year old female with HTN, HLD, Depression who was recently admitted for cat bite resulting in tendon rupture of the right hand. She underwent I&D on 07/29. She was treated with two weeks of amox/clav plus doxycyline. She presents today for follow up. Plan: - Completed therapy - Repeat inflammatory markers today --- If elevated can consider prolonged course of antibiotics - Sutures removed in clinic - Return to clinic PRN based on labs Primary osteoarthritis of right knee 05/14/2019 Overview (05/14/2019): Added automatically from request for surgery [id number] Obesity (BMI 30.0-34.9) 07/06/2017 Assessment & Plan (02/07/2025 8:06 AM CDT): BMI 31 Assessment & Plan (02/05/2025 12:22 AM CDT): -still present, BMI 31 Gastric polyp 02/14/2017 Benign colon polyp 08/30/2016 Iron deficiency anemia, unspecified 08/30/2016 Chondrodermatitis nodularis helicis of right ear 07/12/2016 Overview (09/17/2018): Description: Benign, R ear, counseled pt on relieving pressure to allow it to heal, RTC if it doesn't heal w/ less pressure. Benign neoplasm of soft tissues 07/12/2016 Overview (03/08/2018): Description: L lower eyelid, benign, ABCDes reviewed, photoprotect, pt may return to clinic PRN for shave removal on procedure day (P10). 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 Keratosis, senilis 10/05/2014 Multiple benign melanocytic nevi 10/05/2014 Irritable bowel syndrome 04/11/2014 Overview (02/28/2017): IRRITABLE BOWEL SYNDROME Atopic rhinitis 04/11/2014 Overview (02/28/2017): ALLERGIC RHINITIS NOS Gastroesophageal reflux disease with esophagitis 04/11/2014 Overview (03/03/2017): REFLUX ESOPHAGITIS Moderate episode of recurrent major depressive d isorder 09/26/2013 Overview (03/03/2017): Depression Vaginal vault smear abnormal 02/14/2013 Malignant neoplasm of uterine fundus 09/05/2012 Hyperlipidemia 05/05/2011 Essential hypertension 05/05/2011 Assessment & Plan (02/06/2025 11:42 AM CDT): -resume atenolol, lisinopril -low sodium diet - patient requested a regular diet -continue to monitor and possibly increase medication Assessment & Plan (02/05/2025 12:21 AM CDT): -resume atenolol, lisinopril in AM -low sodium diet Abnormal electrocardiography 05/05/2011 Depression with anxiety Assessment & Plan (02/07/2025 8:06 AM CDT): Likely a major contributor to her presenting symptoms and need for hospitalization. She notes that she has agoraphobia and so rarely leaves her house, contributing to her deconditioning - resume quetiapine 150 HS and venlafaxine 75mg - she will benefit long-term from referral to a psychotherapist after discharge Assessment & Plan (02/05/2025 12:45 AM CDT): -likely a major contributor to her presenting symptoms and need for hospitalization -she notes that she has agoraphobia and so rarely leaves her house, contributing to her deconditioning -resume quetiapine 150 HS -will need to clarify escitalopram, venlafaxine regimen in AM -she will benefit long-term from referral to a psychotherapist after discharge Resolved Problems Problem Noted Date Diagnosed Date Resolved Date CKD (chronic kidney disease) stage 2, GFR 60-89 ml/min 04/19/2022 03/02/2025 Animal bite of right hand with infection 07/26/2021 04/19/2022 Overview (07/29/2021): Added automatically from request for surgery [id number] Abnormal finding on imaging 08/30/2016 12/30/2019 Microcytic anemia 08/25/2016 04/19/2022 Overview (03/02/2017): Microcytic anemia Obesity with body mass index 30 or greater 07/30/2015 12/30/2019 Encounters Date Type Department Care Team Description 06/18/2025 Orders Only [facility] Primary Care at [address] [phone] Jennifer Alcantara, TITUS 05/25/2025 Orders Only [facility] Health Information Management [address] [place] [id number] Scanning, Provider 05/08/2025 11:00 AM CDT Office Visit [facility] Primary Care at [address] [phone] Jennifer Alcantara, TITUS Medicare annual wellness visit, subsequent (Primary Dx); Essential hypertension; Hyperlipidemia, unspecified hyperlipidemia type; Obesity (BMI 30.0-34.9); Gastroesophageal reflux disease with esophagitis without hemorrhage; Globus sensation; Fatty liver; Moderate episode of recurrent major depressive disorder (HCC); Depression with anxiety; CKD stage 3b, GFR 30-44 ml/min (HCC); Malignant neoplasm of uterine fundus (HCC); Personal history of fall 05/08/[address] [facility] Primary Care at [address] [phone] Jennifer Alcantara NP 05/08/2025 Telephone [facility] Primary Care at [address] [phone] Jennifer Alcantara NP 05/01/2025 Results Follow-Up [facility] Primary Care at [address] [phone] Jennifer Chan PA Comprehensive metabolic panel, CBC with auto differential, Vitamin B12, Additional followed-up results: 3 04/30/2025 Orders Only [facility] Primary Care at [address] [phone] Jennifer Alcantara, TITUS from Last 3 Months Immunizations Immunization Administration Dates Next Due Influenza, Quadrivalent, Hig h Dose, Preservative Free, Intrr 10/19/2020 Influenza, Split 10/10/2011 Influenza, Trivalent, High D ose, Split, Preservative Free, Intramuscular 09/24/2019,10/16/2017,09/19/2016,10/26 Influenza, Trivalent, IM (MDV) 08/12/2014 Influenza, Trivalent, Split, Preservative Free, Intradermal 09/26/2013 Influenza, Unspecified 09/26/2022,08/26/2021, PPD TEST 02/18/2025, 5,02/11/2025,02/09 Pfizer SARS-CoV-2 Monovalent Vaccination (12+ Yrs) PURPLE 03/01/2021,02/07/2021 Pneumococcal Conjugate PCV 13 10/26/2015 Pneumococcal Polysaccharide PPV23 08/12/2014 Tdap 03/27/2022, 1,07/26/2021(Defer red: Patient Refused),07/10/2007 Surgical History Surgery Date Site/Laterality Comments OTHER SURGICAL HISTORY IBS: [facility] OTHER SURGICAL HISTORY adenocarcinoma of the endometrium: s/p ZULMA-BSO, no further tx neces ([place]) OTHER SURGICAL HISTORY PVCs, nl echo by report: stopped by atenolol COLONOSCOPY TONSILLECTOMY COSMETIC SURGERY 11/26/2004 - 11/25/2005 HYSTERECTOMY 11/26/2008 - 11/25/2009 BREAST SURGERY 1971 Medical History Medical History Date Comments Hx Other Medical Internal Hemorr hoids Hx Other Medical Allergies/sinus problems Hx Other Medical B Breast Reduct ion Hx Other Medical MVP, no abxs Hx Other Medical ?ALFREDO, doesn't w ant study Hx Other Medical +gallstone seen in u/s 81, no attacks Hx Other Medical hosp 05/29 for s hingles w/ cellulitis Hypertension Hypertension Gastroesophageal reflux disease GERD Hx Other Medical IBS Hx Other Medical s/p abdominopla sty, Hx Other Medical 2008 adenocarcinoma of the endometrium Hx Other Medical PVCs, nl echo b y report Hx Other Medical 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 Hx Other Medical 2014 high grade KAYA at vag cuff, s/p laser vaporization; Comments: CAH 10/26/2015 - Hyperlipidemia Hyperlipidemia - (Added by TW Conv) Uterine cancer (HCC) Colon polyp Chronic diarrhea Anxiety Depression Arthritis 2009 Anemia 2020 Peptic ulceration 2022 GI (gastrointestinal bleed) 2022 Family History Medical History Relation Name Comments Colonic polyp Daughter Atrial fibrillation Father Lexx Atrial F ibrillation; Colon polyps Father Lexx Colonic polyp Father Lexx Other Father Lexx Cancer -?Myelom a; Breast cancer Father's Sister Colonic polyp Father's Sister Other Father's Sister Cancer -?Lorena ast; Breast cancer Maternal cousin Breast cancer Mother Kemi B Cancer Mother Kemi B Hyperlipidemia Mother Kemi B Hypertension Mother Kemi B Hypertension; Breast cancer Mother's Sister 1 Colonic polyp Paternal cousin Colonic polyp Sister 1 Fibromyalgia Sister 1 Fibromyalgia; Breast cancer Sister 2 Rheum arthritis Sister 2 Rheumatoid a rthritis; Relation Name Status Comments Daughter Alive Father Lexx Father's Sister Maternal cousin Alive Mother Kemi B Mother's Sister 1 Mother's Sister 2 Alive Paternal cousin Alive Sister 1 Sister 2 Son Alive Social History Tobacco Use Types Packs/Day Years Used Date Smoking Tobacco: Never Cigarettes Smokeless Tobacco: Never Tobacco Cessation:Counseling Given: Not Answered Alcohol Use Standard Drinks/Week Comments Yes 5 (1 standard drink = 0.6 oz pur e alcohol) BioActor Answer Date Recorded In the past 12 months has [employer] (P), gas, oil, or water Modify threatened to shut off services in your home? No 02/25/2025 Social Connection and Isolation Panel Answer Date Recorded In a typical week, how many times do you talk on the phone with family, friends, or neighbors? Twice a week 02/25/2025 How often do you get together with friends or re latives? Once a week 02/25/2025 How often do you attend worship or restorationism serv ices? Never 02/25/2025 Do you belong to any clubs o r organizations such as worship groups, unions, fraternal or athletic groups, or school groups? No 02/25/2025 How often do you attend meet ings of the clubs or organizations you belong to? Never 02/25/2025 Are you , , di vorced, , never , or living with a partner? 02/25/2025 AUDIT-C Answer Date Recorded Q1: How often do you have a drink containing alcohol? 4 or more times a week 07/03/2022 Q2: How many drinks containi ng alcohol do you have on a typical day when you are drinking? 1 or 2 2 Frequency of Binge Drinking Not on file 06/2022 Overall Financial Resource Strain (CARDIA) Answe r Date Recorded How hard is it for you to pa y for the very basics like food, housing, medical care, and heating? Not hard at all 02/25/2025 PHQ-2 Answer Date Recorded PHQ-2 Total Score (If total score is 3 or more points, staff should administer the PHQ-9) 2 05/06/2025 Hunger Vital Sign Answer Date Recorded Within the past 12 months, y ou worried that your food would run out before you got the money to buy more. Never true 02/26/20 25 Within the past 12 months, t he food you bought just didn't last and you didn't have money to get more. Never true 02/25/2025 PRAPARE - Transportation Answer Date Re corded In the past 12 months, has l ack of transportation kept you from medical appointments or from getting medications? No 12/2024 In the past 12 months, has l ack of transportation kept you from meetings, work, or from getting things needed for daily living? No 02/25/2025 PHQ-9 Answer Date Recorded PHQ-9 Total Score 11 04/22/2024 Housing Stability Vital Sign Answer Layton e Recorded In the last 12 months, was t here a time when you were not able to pay the mortgage or rent on time? No 02/25/2025 In the past 12 months, how m any times have you moved where you were living? 0 02/25/2025 At any time in the past 12 m [facility], were you homeless or living in a detention (including now)? No 02/25/2025 Personal Safety Answer Date Recorded Have you ever been in or are you currently in a harmful physical or emotional relationship or is someone making you feel afraid or unsafe? 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 Gender Identity Not on file Sexual Orientation Not on file Obstetrics History Para Term AB IAB SAB Ectopic Multiple Livin g Live Births 2 2 2 2 Date Outcome GA Total Labor Labor/2nd/3rd Weight Sex Type Anes PTL [place] A1 A5 Name Clin Term Term Last Filed Vital Signs Vital Sign Reading Time Taken Comments Blood Pressure 118/82 05/08/2025 10:42 AM CDT Pulse 76 05/08/2025 10:42 AM CDT Temperature 36.3 C (97.3 F) 05/08/2025 10:42 AM CDT Respiratory Rate 18 02/08/2025 7:48 AM CDT Oxygen Saturation 97% 05/08/2025 10:42 AM CDT Inhaled Oxygen Concentration - - Weight 88 kg (194 lb) 05/08/2025 10:42 AM CDT Height 168.9 cm (5' 6.5) 05/08/2025 10:42 AM CD T measured Body Mass Index 30.84 05/08/2025 10:42 AM CDT Plan of Treatment Health Maintenance Due Date Last Done Comments Hepatitis B Screening 1968 Zoster Vaccine (1 of 2) 1999 Covid-19 Vaccine (2023-2 5 season) 2024 03/01/2021, 02/07/2021 Influenza Vaccine (#1) 2025 , 08/26/2021, 10/19/2020, Additional history exists Osteoporosis Screening-Bone Density Scan 04/16/2026 04/16/2024, 10/15/2015, 10/15/2015 Depression Screening 05/08/2026 05/08/2025, 04/29/2024, 04/29/2024, Additional history exists Fall Risk Assessment 05/08/2026 05/08/2025, 02/08/2025, 04/29/2024, Additional history exists Well Visit 65+ 05/08/2026 05/08/2025, 0602/2024, 04/20/2023, Additional history exists DTaP/Tdap/Td Vaccine (4 - Td or Tdap) 03/27/2032 03/27/2022, 08/02/2021, 07/10/2007 Pneumococcal vaccine 65+ Completed 10/26/2015, 07/27 Colon Cancer Screening-CT Colonography Discontinued 01/20/2020, 09/07/2016, 09/07/2016, Additional history exists Colon Cancer Screening-Colonoscopy Discontinued 01/20/2020, 09/07/2016, 09/07/2016, Additional history exists Colon Cancer Screening-DNA Stool Discontinued 01/20/2020, 09/07/2016, 09/07/2016, Additional history exists Colon Cancer Screening-Sigmoidoscopy Discontinued 01/20/2020, 09/07/2016, 09/07/2016, Additional history exists Hepatitis C Screening Completed 04/13/2021 Colon Cancer Screening-FIT Discontinued 04/20, 01/20/2020, 09/07/2016, Additional history exists Colon Cancer Screening-FOBT Discontinued 03/27, 01/20/2020, 09/07/2016, Additional history exists Colorectal Cancer Screening Discontinued Breast Cancer Screening-Mammogram Discontinued 04/05/2023, 04/14/2022, 04/13/2021, Additional history exists Procedures Procedure Name Priority Date/Time Associated Diagnosis Comments GI - RESULT 05/25/2025 10:31 PM CDT ECG 12-LEAD Routine 05/08/2025 11:26 AM CDT Gastroesophageal reflux disease with esophagitis without hemorrhage NOTE Routine 04/30/2025 11:54 AM CDT URINALYSIS AND REFLEX TO MICROSCOPIC Routine 04/30/2025 11:54 AM CDT VITAMIN D 25 HYDROXY Routine 04/30/2025 11:54 AM CDT VITAMIN B12 Routine 04/30/2025 11:54 AM CDT CBC WITH AUTO DIFFERENTIAL Routine 04/30/2025 11:54 AM CDT COMPREHENSIVE METABOLIC PANEL Routine 04/30/2025 11:54 AM CDT SCREENING MAMMOGRAM Schedule Routine, Read Routine (OP Routine) 04/05/2023 FIT OCCULT BLOOD, FECAL Routine 04/20/2022 10:53 AM CDT Black stools HEPATITIS C ANTIBODY Routine 04/13/2021 11:30 AM CDT COLONOSCOPY 01/20/2020 7:03 AM ANALYSIS EVALUATOR HM DEXA SCAN Routine 10/15/2015 from Last 3 Months or Most Recently Relevant to Health Maintenance Results * GI - RESULT (05/25/2025 10:31 PM CDT) Anatomical Region Laterality Modality Other Provider Scanning Final Result * ECG 12 lead (05/08/2025 11:26 AM CDT) Jennifer Alcantara NP ECG ORDERABLES Final Result * NOTE (04/30/2025 11:54 AM CDT) Note [facility] Comment: This urine was analyzed for the presence of WBC, RBC, bacteria, casts, and other formed elements. Only those elements seen were reported. 04/30/2025 11:5 4 AM CDT 04/30/2025 11:58 AM CDT Narrative [facility] - 05/01/2025 7:51 AM CDT FASTING:YES FASTING: YES Jennifer Alcantara NP LAB BLOOD ORDERABLES Final Resul t [facility] [address] [place] [address] * (ABNORMAL) Urinalysis reflex to microscopic (04/30/2025 11:54 AM CDT) Color, ur DARK YELLOW YELLOW [facility] Appearance, ur CLOUDY(A) CLEAR [facility] [place] Specific gravity 1.025 1.001 - 1.035 [facility] [place] pH, ur < OR = 5.0(A) 5.0 - 8.0 [facility] [place] Glucose, ur NEGATIVE NEGATIVE [facility] [place] Bilirubin, ur NEGATIVE NEGATIVE [facility] [place] Ketones, ur TRACE(A) NEGATIVE [facility] [place] Blood, ur NEGATIVE NEGATIVE [facility] [place] Protein, ur, quant NEGATIVE NEGATIVE [facility] [place] Nitrites, ur NEGATIVE NEGATIVE [facility] [place] Leukocyte esterase, ur 1+(A) NEGATIVE [facility] [place] WBC, ur 0-5 < OR = 5 /HPF [facility] [place] RBC, ur NONE SEEN < OR = 2 /HPF [facility] [place] Epithelial cells, squamous, ur 20-40(A) < OR = 5 /HPF [facility] [place] Bacteria, ur, quant FEW(A) NONE SEEN /HPF [facility] [place] Hyaline cast NONE SEEN NONE SEEN /LPF [facility] [place] 04/30/2025 11:5 4 AM CDT 04/30/2025 11:58 AM CDT Narrative [facility] - 05/01/2025 7:51 AM CDT FASTING:YES FASTING: YES us Jennifer Alcantara MANAGER HEART LAB URINE ORDERABLES Final Resul t [facility] [address] [place] [address] * CBC with auto differential (04/30/2025 11:54 AM CDT) WBC 7.3 3.8 - 10.8 Thousand/u L [facility] RBC, POC 4.16 3.80 - 5.10 Million/uL [facility] Hgb 13.3 11.7 - 15.5 g/dL [facility] Hct 41.5 35.0 - 45.0 % [facility] MCV 99.8 80.0 - 100.0 fL [facility] MCH 32.0 27.0 - 33.0 pg [facility] MCHC 32.0 32.0 - 36.0 g/dL [facility] Comment: For adults, a slight decrease in the calculated MCHC value (in the range of 30 to 32 g/dL) is most likely not clinically significant; however, it should be interpreted with caution in correlation with other red cell parameters and the patient's clinical condition. Rdw 12.6 11.0 - 15.0 % [facility] Platelets 236 140 - 400 Thousand/u L [facility] MPV 10.1 7.5 - 12.5 fL [facility] Neutrophils, abs 5,329 1,500 - 7,800 cells/uL [facility] Lymphocytes, abs 1,336 850 - 3,900 cells/uL [facility] Monocyte abs 526 200 - 950 cells/uL [facility] Eosinophils, abs 88 15 - 500 cells/uL [facility] Basophils, abs 22 0 - 200 cells/uL [facility] Neutrophils 73 % [facility] Lymphocyte pct 18.3 % [facility] Monocytes 7.2 % [facility] Eosinophils 1.2 % [facility] Basophils 0.3 % [facility] 04/30/2025 11:5 4 AM CDT 04/30/2025 11:58 AM CDT Narrative [facility] - 05/01/2025 7:51 AM CDT FASTING:YES FASTING: YES us Jennifer Alcantara NP LAB BLOOD ORDERABLES Final Resul t Performing Organization Address City/[facility]/ZIP Co de Phone Number [facility] [address] [place] [address] * Vitamin D 25 hydroxy (04/30/2025 11:54 AM CDT) Vitamin D 25-OH 40 30 - 100 ng/mL [facility] Comment: Vitamin D Status 25-OH Vitamin D: Deficiency: <20 ng/mL Insufficiency: 20 - 29 ng/mL Optimal: > or = 30 ng/mL For 25-OH Vitamin D testing on patients on D2-supplementation and patients for whom quantitation of D2 and D3 fractions is required, the [facility](TM) 25-OH VIT D, (D2,D3), LC/MS/MS is recommended: order code [id number] (patients >2yrs). See Note 1 Note 1 For additional information, please refer to http://education.[employer]/faq/AIV729 (This link is being provided for informational/ educational purposes only.) 04/30/2025 11:5 4 AM CDT 04/30/2025 11:58 AM CDT Narrative [facility] - 05/01/2025 7:51 AM CDT FASTING:YES FASTING: YES us Jennifer Alcantara NP LAB BLOOD ORDERABLES Final Resul t [facility] [address] [place] [address] * Vitamin B12 (04/30/2025 11:54 AM CDT) [facility] Vitamin B12 485 200 - 1,100 pg/mL [facility] 04/30/2025 11:5 4 AM CDT 04/30/2025 11:58 AM CDT Narrative [facility] - 05/01/2025 7:51 AM CDT FASTING:YES FASTING: YES us Jennifer Alcantara NP LAB BLOOD ORDERABLES Final Resul t [facility] [address] [place] [address] * (ABNORMAL) Comprehensive metabolic panel (04/30/2025 11:54 AM CDT) [facility] Glucose 140(H) 65 - 99 mg/dL [facility] Comment: Fasting reference interval For someone without known diabetes, a glucose value >125 mg/dL indicates that they may have diabetes and this should be confirmed with a follow-up test. BUN 18 7 - 25 mg/dL [facility] Creatinine 1.28(H) 0.60 - 1.00 mg/dL [facility] eGFR 43(L) > OR = 60 mL/min/1.7 3m2 [facility] BUN/creat ratio 14 6 - 22 (calc) [facility] Sodium 137 135 - 146 mmol/L [facility] Potassium, pl 4.4 3.5 - 5.3 mmol/L [facility] Chloride 98 98 - 110 mmol/L [facility] CO2 28 20 - 32 mmol/L [facility] Calcium 9.9 8.6 - 10.4 mg/dL [facility] Protein, sr 7.0 6.1 - 8.1 g/dL [facility] Albumin 4.1 3.6 - 5.1 g/dL [facility] GLOBULIN 2.9 1.9 - 3.7 g/dL (calc) [facility] Alb/glob ratio 1.4 1.0 - 2.5 (calc) [facility] Bilirubin, total 0.4 0.2 - 1.2 mg/dL [facility] Alk phos 87 37 - 153 U/L [facility] AST 19 10 - 35 U/L [facility] ALT (SGPT) 13 6 - 29 U/L [facility] 04/30/2025 11:5 4 AM CDT 04/30/2025 11:58 AM CDT Narrative [facility] - 05/01/2025 7:51 AM CDT FASTING:YES FASTING: YES Jennifer Alcantara NP LAB BLOOD ORDERABLES Final Resul t [facility] [address] [place] [address] * Screening Mammogram (04/05/2023) Anatomical Region Laterality Modality Breast N/A Mammography Historical Provider MD [facility]MO PROCEDURES Edit ed Result - Final * FIT occult blood, fecal (04/20/2022 10:53 AM CDT) FIT occult blood, fecal Negative Negative [facility] Comment: This test is performed using the OC-Light S FIT test. The OC-Light S FIT test is an in vitro diagnostic device, a qualitative test designed for the immunochemical detection of human hemoglobin (hHb) in stool specimens. The performance characteristics of this test have been determined by [facility]. Current interpretive data was last revised on 2021 Collection date/time has been modified to: 10:53:00. Previous collection date/time: 10:53:00. Stool 04/20/2022 10:5 3 AM CDT 05/01/2022 11:56 AM CDT Mya Rankin MD LAB BODY FLUIDS AND STO OLS ORDERABLES Edited Result - Final [facility] [address] Department [place] [address] * Hepatitis C antibody (04/13/2021 11:30 AM CDT) Hep C Ab NON-REACTI VE NON-REACT JA [facility] SIGNAL TO CUT-OFF 0.01 <1.00 [facility] Comment: HCV antibody was non-reactive. There is no laboratory evidence of HCV infection. In most cases, no further action is required. However, if recent HCV exposure is suspected, a test for HCV RNA (test code 94582) is suggested. For additional information please refer to http://education.Minuum/faq/IOA75z6 (This link is being provided for informational/ educational purposes only.) 04/13/2021 11:3 0 AM CDT 04/13/2021 11:31 AM CDT Narrative [facility] - 04/14/2021 12:54 PM CDT FASTING:YES FASTING: YES Mya Rankin MD LAB MICROBIOLOGY - [facility] ORDERABLES Final Result [facility] [address] [place] [address] * COLONOSCOPY (01/20/2020 7:03 AM ANALYSIS EVALUATOR) Anatomical Region Laterality Modality Other Narrative Procedure Note Timothy Harris MD - 01/20/2020 7:03 AM CST ENDOSCOPY LAB Patient Name: Sirisha Alexis Procedure Date: 01/20/2020 7:03 AM Admit Type: Outpatient Room: [facility] Date of : 1950 Instrument Name:[id number] Gender: Female Note Status: Finalized Procedure: Colonoscopy Indications: Last colonoscopy: August 2016, Follow-up for historyof adenomatous polyps in the colon Comorbidities Patient has complaints of intermittent diarrhea and bloating Providers: Timothy Harris M.D. Referring MD: Mya Rankin M.D. Medicines: Propofol per Anesthesia Complications: No immediate complications. Estimated Blood Loss: Estimated blood loss: none. Procedure: Pre-Anesthesia Assessment: - Prior to the procedure, a History and Physical was performed, and patient medications and allergies were reviewed. The patient is competent. The risks andbenefits of the procedure and the sedation options and riskswere discussed with the patient. All questions were answered and informed consent was obtained. Patientidentification and proposed procedure were verified by the nurse inthe procedure room. Mental Status Examination: alert and oriented. Airway Examination: normal oropharyngealairway and neck mobility. Respiratory Examination: clear to auscultation. CV Examination: normal. Prophylactic Antibiotics: The patient does not require prophylactic antibiotics. Prior Anticoagulants: The patient hastaken no previous anticoagulant or antiplatelet agents. ASA Grade Assessment: II - A patient with mild systemic disease. After reviewing the risks and benefits, the patient was deemed in satisfactory condition to undergo the procedure. The anesthesia plan was to use moderate sedation / analgesia (conscious sedation). Immediately prior to administration of medications, the patient was re-assessed for adequacy to receive sedatives. Theheart rate, respiratory rate, oxygen saturations, blood pressure, adequacy of pulmonary ventilation, andresponse to care were monitored throughout the procedure. The physical status of the patient was re-assessed afterthe procedure. - The risks and benefits of the procedure and thesedation options and risks were discussed with the patient. All questions were answered and informed consent wasobtained. The benefits, risks and alternatives of the procedureand sedation were discussed and informed consent wasobtained. All questions were answered. Please refer to the signed informed consent document in the medical record. Thescope was passed under direct vision. The Colonoscope was introduced through the anus and advanced to the the terminal ileum. The scope was passed under directvision. The Colonoscope was introduced through the and advancedto the. The colonoscopy was unusually difficult due to a tortuous colon. Successful completion of the procedurewas aided by withdrawing the scope and replacing with the pediatric endoscope. The patient tolerated theprocedure well. The quality of the bowel preparation wasexcellent. The bowel preparation used was SUPREP. Bowel prep was administered using a split dose. Findings: A 4 mm polyp was found in the ascending colon. The polyp was sessile. The polyp was removed with a cold snare. Resection and retrieval were complete. A 2 mm polyp was found in the cecum. The polyp was sessile. The polyp was removed with a cold biopsy forceps. Resection and retrieval were complete. A patchy area of mildly congested mucosa was found in the entirecolon. Biopsies were taken with a cold forceps for histology. The terminal ileum appeared normal. A diffuse area of mild melanosis was found in the entire colon. A few small-mouthed diverticula were found in the sigmoid colon. Impression: - One 4 mm polyp in the ascending colon, removed with a cold snare. Resected and retrieved. - One 2 mm polyp in the cecum, removed with a coldbiopsy forceps. Resected and retrieved. - Congested mucosa in the entire examined colon.Biopsied. - The examined portion of the ileum was normal. - Melanosis in the colon. - Melanosis coli is a condition where there is pigmentation of the lining of the colon caused bytaking certain laxatives. - Mild diverticulosis in the sigmoid colon. Recommendation: - Repeat colonoscopy in 5 years for surveillance. - The propofol sedation and pediatric scope workedwell. - Office consultation to figure out the chronicsymptoms of diarrhea bloating and discuss findings ofcolonoscopy including the melanosis coli Attending Participation: I personally performed the entire procedure. Electronically signed by Timothy Harris MD Timothy Harris M.D. 01/20/2020 8:48:31 AM Number of Addenda: 0 Note Initiated On: 01/20/2020 7:03 AM Timothy Harris MD ENDOSCOPY PROCEDURES Fin al Result * DEXA SCAN (10/15/2015) DEXA Scan Normal Historical Provider HEALTH MAINTENANCE Final Result from Last 3 Months or Most Recently Relevant to Health Maintenance Insurance [facility] MEDICARE [employer] MEDICARE [employer]ICARE [employer] Advance Directives For more information, please contact: [phone] * Full Code (Latest Code Status on File) Date Activated Date Inactivated Comments 02/04/2025 8:52 PM 02/08/2025 3:34 PM * Full Code Date Activated Date Inactivated Comments 07/26/2021 9:12 PM 07/31/2021 10:42 PM * Full Code Date Activated Date Inactivated Comments 01/20/2020 7:31 AM 01/20/2020 1:22 PM Care Teams Crusher Relationship Specialty Start Date End Date Jennifer Alcantara NP [address] [address] PCP - General Internal Medicine 10/31/24
--- OUTSIDE RECORDS SUMMARY | 2025-07-21 14:27 | XMS_ITS | Encounter Summary ---
Author Organization [facility] Address [address] [place] [address] Phone Care Team Providers Care Boom Man Name Role Phone Mya Rankin MD Primary Care Provider Key Ingram RN Unavailable [phone] Jennifer Alcantara NP Primary Care Provider [phone] Tracy Yusuf RN Unavailable Encounter Details Date Type Department Care Team (Late st Contact Info) Description 04/02/2018 Orders Only [facility] ProviderScooter MD [address] [place] [id number] Social History Tobacco Use Types Packs/Day Years Used Date Smoking Tobacco: Never Smokeless Tobacco: Never Alcohol Use Standard Drinks/Week Comments Yes 0 (1 standard drink = 0.6 oz pur e alcohol) Comments Unknown Sex and Gender Information Value Date Recorded Sex Assigned at Not on file 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 us Historical Provider LAB BLOOD ORDERABLES Abby l Result documented in this encounter Visit Diagnoses Not on filedocumented in this encounter Care Teams Boom Man Relationship Specialty Start Date End Date Mya Rankin MD PCP - General 02/23/17 10/30/24 Jennifer Alcantara NP [address] [facility] [address], [place] [address] PCP - General Internal Medicine 10/31/24 Key Ingram RN [address] [place], [place] [id number] Garment Finisher 08/01/21 08/23/21 Tracy Yusuf RN [address] [place], [place] [id number] Garment Finisher 02/25/25 03/03/25 documented as of this encounter
--- OUTSIDE RECORDS SUMMARY | 2025-07-21 14:28 | XMS_ITS | Clinical Summary ---
Author Organization [facility] Address [address] [facility] [place] [address] Care Team Providers Care Account Consultant Name Role Phone Mya Rankin MD Primary Care Provider Source Comments [facility],non-owned Affiliates and Associated Physician Practices is amultiple site organization consisting of ambulatory clinics and hospital sitesin [place], [place], [place] and [place]. This disclosure is being madepursuant to the Care Everywhere program and may not contain all information available regarding this patient. Last updated 18.[facility] Allergies Active Allergy Reactions Criticality Noted Date Comments Cephalexin Urticaria Medium 08/16/2022 Ciprofloxacin 10/16/2017 Erythromycin Rash Medium 01/30/2022 Medications * Be aware that medications may not be up to date on this document. Alwaysverify current medications with the patient. fluticasone propionate (FLONASE) 50 MCG/ACT nasal spray inhale 2 spray by Intranasal route every day in each nostril 7 Active albuterol HFA (PROAIR HFA) 108 (90 BASE) MCG/ACT inhaler 90 mcg 7 Active atenolol (TENORMIN) 50 MG tablet 50 mg 7 Active brimonidine 0.1 % (ALPHAGAN P) 0.1 % ophthalmic solution 0.1 % 5 Active furosemide (LASIX) 20 MG tablet TAKE ONE BY MOUTH ONE TIME EVERY OTHER DAY NEEDED FOR SWELLING NEEDED FOR SWELLING 7 Active lisinopril (PRINIVIL; ZESTRIL) 10 MG tablet 10 mg 6 Active traZODone (DESYREL) 100 MG tablet Take 100 mg by mouth 7 Active Acetaminophen 500 MG Active amLODIPine (Norvasc) 5 MG tablet Take 1 (one) tablet by mouth once daily 2 Active lisinopril (Prinivil; Zestril) 40 MG tablet Take 1 (one) tablet by mouth once daily 2 Active melatonin 3 MG tablet Active multivitamins (One A Day) capsule Take 1 (one) capsule by mouth once daily Active omeprazole (PriLOSEC) 40 MG capsule Take 1 (one) capsule by mouth once daily 2 Active pravastatin (Pravachol) 80 MG tablet Take 80 mg by mouth once daily 2 Active QUEtiapine (SEROquel) 50 MG tablet Take 3 (three) tablets by mouth at bedtime 2 Active venlafaxine XR 24hr (Effexor XR) 75 MG capsule Take 1 (one) capsule by mouth once daily 2 Active atenolol (Tenormin) 50 MG tablet Take 1 (one) tablet by mouth once daily 2 Active QUEtiapine (SEROquel) 25 MG tablet TAKE 3 TABLETS ORALLY AT BEDTIME DAILY 3 Active venlafaxine XR 24hr (Effexor XR) 37.5 MG capsule TAKE 1 CAPSULE BY MOUTH IN THE MORNING 3 Active acetaminophen-c odeine (Tylenol #3) 300-30 MG tablet Take 1 (one) tablet by mouth every 6 hours as needed for Pain 12 tablet 3 Active bacitracin 500 UNIT/GM ophthalmic ointment Instill into both eyes 4 times daily Apply to incision sites 3 Active Active Problems Problem Noted Date Diagnosed Date Dermatochalasis of both upper eyelids 08/20/2022 Ptosis of both eyelids 08/16/2022 Immunizations Immunization Administration Dates Next Due INFLUENZA VACCINE, HIGH-DOSE , QUADR. (FLUZONE HIGH-DOSE QUADRIVALENT; 65Y+), 0.7 ML (HD-IIV4) 10/16/2017 Family History Medical History Relation Name Comments Colon polyps Daughter Colon polyps Father Parkinson's Disease Father Cancer - Breast Mother COPD - Chronic Obstructive Pulmonary Disease Sister Relation Name Status Comments Daughter Alive Father Mother Sister Social History Tobacco Use Types Packs/Day Years Used Date Smoking Tobacco: Never Smokeless Tobacco: Never Tobacco Cessation:Counseling Given: Not Answered Alcohol Use Standard Drinks/Week Comments Yes 5 (1 standard drink = 0.6 oz pur e alcohol) daily Comments Unknown Sex and Gender Information Value Date Recorded Sex Assigned at Not on file 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 Gender Identity Not on file Sexual Orientation Not on file Last Filed Vital Signs Vital Sign Reading Time Taken Comments Blood Pressure 113/61 10/08/2023 11:05 AM AUTOMOTIVE SALES SPECIALIST Pulse 62 10/08/2023 11:05 AM AUTOMOTIVE SALES SPECIALIST Temperature 36.1 C (97 F) 10/08/2023 10:55 AM AUTOMOTIVE SALES SPECIALIST Respiratory Rate 16 10/08/2023 11:05 AM AUTOMOTIVE SALES SPECIALIST Oxygen Saturation 98% 10/08/2023 11:05 AM AUTOMOTIVE SALES SPECIALIST Inhaled Oxygen Concentration - - Weight 91.6 kg (202 lb) 10/08/2023 7:30 AM AUTOMOTIVE SALES SPECIALIST Height 170.2 cm (5' 7) 10/08/2023 7:30 AM AUTOMOTIVE SALES SPECIALIST Body Mass Index 31.64 10/08/2023 7:30 AM AUTOMOTIVE SALES SPECIALIST Plan of Treatment Health Maintenance Due Date Last Done Comments BONE DENSITY TESTING 1950 MEDICARE AWV 12 MONTHS 1950 HEPATITIS C SCREENING 01/18/1967 DTAP/TDAP/TD VACCINES (1 - Tdap) 1968 PNEUMOCOCCAL VACCINE 50+ (1 of 1 - PCV) 1999 ZOSTER VACCINE (1 of 2) 1999 Respiratory Syncytial Virus (RSV) Vaccine Pt: or over 60 yrs (1 - 1-dose 75+ series) 2024 COVID-19 VACCINE ( - season) 2024 03/01/2021, 02/07/2021 DEPRESSION SCREENING 11/26/2024 INFLUENZA VACCINE (#1) 2025 2, 08/26/2021, 09/24/2019, Additional history exists HEPATITIS B VACCINE Aged Out No longe r eligible based on patient's age to complete this topic HIB VACCINE Aged Out No longer eligi ble based on patient's age to complete this topic HPV VACCINE Aged Out No longer eligi ble based on patient's age to complete this topic MENINGOCOCCAL (Group B) VACCINE SHARED DECISION-MAKING Aged Out No longer eligible based on patient's age to complete this topic MENINGOCOCCAL GROUPS A/C/Y/W VACCINE Aged Out No longer eligible based on patient's age to complete this topic Insurance MEDICARE MEDICARE [facility] [place] [address] MEDICARE Care Teams Account Consultant Relationship Specialty Start Date End Date Mya Rankin MD PCP - General Internal Medicine 10/16/17
[2025-07-21 14:35] VITALS: BP 145/90; PULSE 67; RESP 16; TEMP 36.6; O2SAT 96
--- NOTE | 2025-07-21 16:40 | ED.FALL ---
HPI - Fall General Chief Complaint: Fall Stated Complaint: mechanical fall, R. eye hematoma Time Seen by Provider: 07/21/25 15:33 Source: patient Mode of arrival: EMS Limitations: no limitations History of Present Illness HPI Narrative: Patient is a 75-year-old female who presents the ED via EMS status post fall. Patient reports she tripped over a rubber door mat and fell forward, hitting her right-sided face on the ground. Sustained a hematoma to her right periorbital region. Denied LOC. reports pain to the knees, right upper arm, left knee. Denies significant neck or back pain. Does have history of chronic back pain, but denies any changes in this today since fall. Denies numbness, vision changes, pain with eye movements, dizziness, lightheadedness. Patient is not on any anticoagulation Related Data Home Medications ?Medication ?Instructions ?Recorded ?Confirmed ?Last Taken ?Type atenolol 50 mg tablet 50 mg PO DAILY 07/26/21 03/05/23 Unknown History lisinopril 20 mg tablet 20 mg PO DAILY 07/26/21 03/05/23 Unknown History omeprazole 40 mg capsule,delayed 40 mg PO DAILY 07/26/21 03/05/23 Unknown History release pravastatin 80 mg tablet 80 mg PO DAILY 07/26/21 03/05/23 Unknown History quetiapine 50 mg tablet 75 mg PO DAILY 07/26/21 03/05/23 Unknown History venlafaxine 75 mg capsule,extended 125 mg PO DAILY 07/26/21 03/05/23 Unknown History release 24 hr amlodipine 5 mg tablet 5 mg PO DAILY 03/05/23 03/05/23 1 Day Ago History ~03/04/23 Allergies Allergy/AdvReac Type Severity Reaction Status Date / Time ciprofloxacin (From Cipro) Allergy Mild Rash Verified 07/21/25 16:51 cephalexin Allergy Rash Verified 07/21/25 16:51 erythromycin base Allergy Rash Verified 07/21/25 16:51 Review of Systems Review of Systems: All systems reviewed & are unremarkable except as noted in HPI. All systems reviewed & are unremarkable except as noted in HPI and below PMFSH Past Medical History Medical History History of endometrial biopsy Depression with anxiety Hyperlipidemia Hypertension Burst fracture of lumbar vertebra L2, approx 2022 Surgical History Surgical History History of endometrial ablation S/P tonsillectomy H/O eye surgery H/O hand surgery H/O abdominoplasty H/O: hysterectomy Hx of breast reduction, elective Family History Family History Mother Breast cancer Father Parkinson disease Social History Social History Social History: She is and lives alone. She had 2 children. 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 HEAD: Normocephalic. Contusion/hematoma to R lateral superior periorbital region with bruising. Focal tenderness. EYES: PERRL/EOMI, conjunctiva clear. No nystagmus. No pain with ROM. NECK: No appreciable midline cervical spinal tenderness. Normal ROM RESPIRATORY: Airway patent, respirations nonlabored. Clear to auscultation bilaterally, no rales, rhonchi, wheezing. CARDIOVASCULAR: Regular rate and rhythm without murmurs, rubs, or gallops. MUSCULOSKELETAL: Moves all extremities. No gross deformities. TTP diffusely throughout R upper arm, anterior R shoulder joint. Slight limited ROM of R shoulder d/t pain. No significant appreciable tenderness throughout L anterior knee. No swelling or bruising. SKIN: Warm, dry, normal color. NEURO: A&O X3. Speech clear. Cranial nerves II-XII grossly intact. Steady gait. No ataxic movements. PSYCHIATRIC: Appropriate mood and affect. Normal interaction. Course Vital Signs Vital signs: Vital Signs Temperature 97.8 F 07/21/25 14:35 Pulse Rate 67 07/21/25 14:35 Respiratory Rate 16 07/21/25 14:35 Blood Pressure 145/90 H 07/21/25 14:35 Pulse Oximetry 96 07/21/25 14:35 Temperature 97.8 F 07/21/25 14:35 Pulse Rate 67 07/21/25 14:35 Respiratory Rate 16 07/21/25 14:35 Blood Pressure 145/90 H 07/21/25 14:35 Pulse Oximetry 96 07/21/25 14:35 MDM - Fall MDM Narrative Medical decision making narrative: Patient presented to ED status post ground level mechanical fall, head injury, pain to right-sided face, right shoulder. Vital signs are stable upon arrival. Patient is in no acute distress. Neurologically intact. Denies LOC, neurologic complaints, anticoagulation use. CT brain clear CT of cervical spine and facial bones without traumatic findings. Does show cervical spondylosis, no fracture or facial bone fracture. R humerus x-ray also negative. Patient offered sling for comfort and support. She reports she has 1 at home. Feel she is safe for discharge home at this time. Discussed rice therapy, close follow-up with PCP, strict return precautions. Patient in agreement with plan. Feels comfortable going home. Discharged in stable condition. Medical Records Attestation: I reviewed the patient's medical records. Imaging Data Attestation: I personally reviewed and interpreted this imaging study as follows: Radiologist's impression: ITS Impressions Humerus X-Ray 07/21/25 16:39 Impression: No acute fracture or malalignment. Head CT 07/21/25 17:07 IMPRESSION: 1. Normal aging brain. No fracture or acute intracranial process. Head/Cervical Spine/Facial Bones CT 07/21/25 17:09 IMPRESSION: 1. Severe cervical spondylosis with no acute osseous adenopathy. 2. Old left nasal bone fracture. No acute maxillofacial fractures. Discharge Plan Discharge Clinical Impression: Fall from ground level Periorbital contusion of right eye Qualifiers: Encounter type: initial encounter Qualified Code(s): S05.11XA - Contusion of eyeball and orbital tissues, right eye, initial encounter Strain of right shoulder Qualifiers: Encounter type: initial encounter Qualified Code(s): S46.911A - Strain of unspecified muscle, fascia and tendon at shoulder and upper arm level, right arm, initial encounter Patient Disposition: Home Condition: Stable Instructions: Antibiotic Form, Head Injury (ED), Shoulder Sprain (ED), Hematoma (ED) Additional Instructions: Your imaging did not show any traumatic findings. You will likely be sore over the next few days. Recommend ice to areas of pain, sling for comfort and support. Recommend naproxen, Tylenol as needed for pain. [place] as needed for more severe pain. Follow-up with your primary care doctor for further evaluation as needed. Return to the ED for recurrent fall or injury, severe pain, severe dizziness, passing out, vision changes, unable to keep down food or drink, numbness in arm, or any other symptoms of concern. Patient Language: Bengali Prescriptions: New hydrocodone-acetaminophen 5-325 mg tablet 1 tablet PO Q6H PRN (Reason: pain) Qty: 7 0RF No Action venlafaxine 75 mg capsule,extended release 24hr 125 mg PO DAILY lisinopril 20 mg tablet 20 mg PO DAILY omeprazole 40 mg capsule,delayed release(DR/EC) 40 mg PO DAILY pravastatin 80 mg tablet 80 mg PO DAILY atenolol 50 mg tablet 50 mg PO DAILY quetiapine 50 mg tablet 75 mg PO DAILY amlodipine 5 mg tablet 5 mg PO DAILY hydrocodone-acetaminophen 5-325 mg Tablet 1 tablet PO Q8H PRN (Reason: Pain Rated 4-6) Qty: 14 0RF lidocaine [Lidoderm] 5 % Adhesive Patch,Medicated 1 patch transdermal DAILY Qty: 10 0RF hydrocodone-acetaminophen 5-325 mg tablet 1 tablet PO Q8H PRN (Reason: pain) Qty: 20 0RF lidocaine 4 % adhesive patch,medicated 1 patch topical DAILY PRN (Reason: pain) Qty: 10 0RF methocarbamol 750 mg tablet 1,500 mg PO HS Qty: 14 0RF ibuprofen 600 mg tablet 600 mg PO TID PRN (Reason: pain) Qty: 30 0RF acetaminophen 500 mg capsule 1,000 mg PO Q6H PRN (Reason: pain) Qty: 30 0RF Follow-up/Referrals: PHYSICIAN NOT ON STAFF,NONSTAFF [Non-Staff] Time of Disposition: 17:24
[2025-07-21] MEDS: HYDROcodone/acetaminophen (*CRX) 5-325 MG TABLET 1 TAB PO (16:52)
--- NOTE | 2025-07-21 17:57 | PC.NURSE ---
pt did not want an arm sling. pt says she has one at home
== END 2025-07-21 17:59 | disposition home or self-care (01) ==
PROVIDERS: Emergency Provider Physician Assistant
DX: S05.11XA Contusion of eyeball and orbital tissues, right eye, initial encounter (principal); S46.911A Strain of unspecified muscle, fascia and tendon at shoulder and upper arm level, right arm, initial encounter; M47.812 Spondylosis without myelopathy or radiculopathy, cervical region; F32.A Depression, unspecified; F41.9 Anxiety disorder, unspecified; E78.5 Hyperlipidemia, unspecified; I10 Essential (primary) hypertension; W01.0XXA Fall on same level from slipping, tripping and stumbling without subsequent striking against object, initial encounter
CPT/HCPCS: 70450; 70486; 72125; 73060; 99284; A4565; A9270